=== PATIENT | female | born 1940 | race Caucasian/White ===

== ENCOUNTER → 2023-07-21 13:29 | Outpatient (REF) | payer OTHER, SELFPAY ==
[2023-07-21 16:08] LABS: % Basophils 0.6 % (0-2); % Eosinophils 0.9 % (0-6); % Immature Granulocytes 0.5 % (0-0.5); % Lymphocytes 4.9 % (20.5-51.1); % Monocytes 5.6 % (1.7-9.3); % Neutrophils 87.5 % (42.2-75.2); Absolute Basophils 0.1 10^3/uL (0-0.2); Absolute Eosinophils 0.1 10^3/uL (0-0.7); Absolute Immature Granulocytes 0.1 10^3/uL (0-0.05); Absolute Lymphocytes 0.5 10^3/uL (1.2-3.4); Absolute Monocytes 0.6 10^3/uL (0.1-0.6); Absolute Neutrophils 9.7 10^3/uL (1.4-6.5); Hemoglobin 12.2 g/dL (12.0-16.0); Mean Corp Hgb Conc. 31.3 g/dL (33.0-37.0); Mean Corpuscular Hgb 31.1 pg (27.0-31.0); Mean Corpuscular Volume 99.5 fL (81.0-99.0); Mean Platelet Volume 10.1 fL (7.4-10.4); Nucleated Red Blood Cells % 0 %; Platelet Count 239 10^3/uL (130-400); Red Blood Cell Count 3.92 10^6/uL (4.20-5.40); Red Cell Dist. Width 13.2 % (11.5-14.5); White Blood Cell Count 11.1 10^3/uL (4.8-10.8)
[2023-07-21 16:14] LABS: ALT (SGPT) 17 U/L (0-35); AST (SGOT) 32 U/L (14-36); Albumin 3.8 g/dl (3.5-5.0); Alkaline Phosphatase 53 U/L (38-126); Blood Urea Nitrogen 21 mg/dl (7-17); Calcium 9.3 mg/dl (8.4-10.2); Chloride 86 mmol/L (98-107); Glucose 95 mg/dl (70-99); Potassium 4.8 mmol/L (3.5-5.1); Sodium 133 mmol/L (135-145); Total Bilirubin 0.5 mg/dl (0.2-1.3); Total Protein 6.9 g/dl (6.3-8.2); eGFR > 60.00
[2023-07-21 16:23] LABS: Carbon Dioxide 39 mmol/L (22-30)
== END ==
LOC: HWLAB 13:29
PROVIDERS: ATTENDING PHYSICIAN Internal Medicine Hematology & Oncology; FAMILY PHYSICIAN Internal Medicine
DX: C83.39 Diffuse large B-cell lymphoma, extranodal and solid organ sites (principal); C50.911 Malignant neoplasm of unspecified site of right female breast; C50.411 Malignant neoplasm of upper-outer quadrant of right female breast
CPT/HCPCS: 36415; 80053; 85025

== ENCOUNTER → 2024-04-12 16:22 | Outpatient (REF) | payer OTHER, SELFPAY ==
[2024-04-12 17:33] LABS: % Basophils 0.3 % (0-2); % Eosinophils 0.4 % (0-6); % Immature Granulocytes 0.4 % (0-0.5); % Lymphocytes 4.6 % (20.5-51.1); % Monocytes 5.2 % (1.7-9.3); % Neutrophils 89.1 % (42.2-75.2); Absolute Eosinophils 0.1 10^3/uL (0-0.7); Absolute Lymphocytes 0.5 10^3/uL (1.2-3.4); Absolute Monocytes 0.6 10^3/uL (0.1-0.6); Absolute Neutrophils 10.1 10^3/uL (1.4-6.5); Hematocrit 37.3 % (37.0-47.0); Mean Corp Hgb Conc. 32.2 g/dL (33.0-37.0); Mean Corpuscular Hgb 32.3 pg (27.0-31.0); Mean Corpuscular Volume 100.3 fL (81.0-99.0); Mean Platelet Volume 11.5 fL (7.4-10.4); Nucleated Red Blood Cells % 0 %; Platelet Count 175 10^3/uL (130-400); Red Blood Cell Count 3.72 10^6/uL (4.20-5.40); White Blood Cell Count 11.3 10^3/uL (4.8-10.8)
[2024-04-12 17:57] LABS: ALT (SGPT) 18 U/L (0-35); AST (SGOT) 34 U/L (14-36); Albumin 4.1 g/dl (3.5-5.0); Alkaline Phosphatase 58 U/L (38-126); Blood Urea Nitrogen 33 mg/dl (7-17); Calcium 9.5 mg/dl (8.4-10.2); Chloride 89 mmol/L (98-107); Glucose 101 mg/dl (70-99); Potassium 4.6 mmol/L (3.5-5.1); Sodium 137 mmol/L (135-145); Total Bilirubin 0.3 mg/dl (0.2-1.3); Total Protein 7.2 g/dl (6.3-8.2); eGFR > 60.00
[2024-04-12 18:07] LABS: Carbon Dioxide 37 mmol/L (22-30)
== END ==
LOC: REG 16:22
PROVIDERS: ATTENDING PHYSICIAN Internal Medicine Hematology & Oncology; FAMILY PHYSICIAN Internal Medicine
DX: C83.390 Primary central nervous system lymphoma (principal); C50.911 Malignant neoplasm of unspecified site of right female breast; C50.411 Malignant neoplasm of upper-outer quadrant of right female breast
CPT/HCPCS: 36415; 80053; 85025; 86300

== ENCOUNTER → 2024-05-10 11:26 | Outpatient (REF) | payer OTHER, SELFPAY ==
[2024-05-10 12:02] LABS: % Basophils 0.6 % (0-2); % Eosinophils 1.3 % (0-6); % Immature Granulocytes 0.5 % (0-0.5); % Lymphocytes 7.1 % (20.5-51.1); % Neutrophils 83.5 % (42.2-75.2); Absolute Basophils 0.1 10^3/uL (0-0.2); Absolute Eosinophils 0.2 10^3/uL (0-0.7); Absolute Immature Granulocytes 0.1 10^3/uL (0-0.05); Absolute Lymphocytes 0.8 10^3/uL (1.2-3.4); Absolute Monocytes 0.8 10^3/uL (0.1-0.6); Absolute Neutrophils 9.6 10^3/uL (1.4-6.5); Hemoglobin 12.2 g/dL (12.0-16.0); Mean Corp Hgb Conc. 30.5 g/dL (33.0-37.0); Mean Corpuscular Volume 101.5 fL (81.0-99.0); Mean Platelet Volume 9.5 fL (7.4-10.4); Nucleated Red Blood Cells % 0 %; Platelet Count 258 10^3/uL (130-400); Red Blood Cell Count 3.94 10^6/uL (4.20-5.40); Red Cell Dist. Width 12.9 % (11.5-14.5); White Blood Cell Count 11.5 10^3/uL (4.8-10.8)
[2024-05-10 12:50] LABS: ALT (SGPT) 15 U/L (0-35); AST (SGOT) 32 U/L (14-36); Albumin 4.1 g/dl (3.5-5.0); Alkaline Phosphatase 73 U/L (38-126); Blood Urea Nitrogen 30 mg/dl (7-17); Calcium 9.6 mg/dl (8.4-10.2); Chloride 87 mmol/L (98-107); Glucose 125 mg/dl (70-99); Potassium 4.3 mmol/L (3.5-5.1); Sodium 138 mmol/L (135-145); Total Bilirubin 0.5 mg/dl (0.2-1.3); Total Cholesterol 259 mg/dl (50-199); Total Protein 7.3 g/dl (6.3-8.2); Triglyceride 88 mg/dl (10-149); Very Low Density Lipoprotein 17 mg/dl (0-30); eGFR > 60.00
[2024-05-10 13:20] LABS: TSH 2.38 uIU/ml (0.47-4.68)
[2024-05-10 13:22] LABS: HDL Cholesterol 139 mg/dl; LDL Cholesterol, Calculated 103 mg/dl
[2024-05-10 13:52] LABS: Carbon Dioxide 43 mmol/L (22-30)
== END ==
LOC: REG 11:26
PROVIDERS: ATTENDING PHYSICIAN Internal Medicine
DX: J96.12 Chronic respiratory failure with hypercapnia (principal); Z85.79 Personal history of other malignant neoplasms of lymphoid, hematopoietic and related tissues; J44.9 Chronic obstructive pulmonary disease, unspecified; I10 Essential (primary) hypertension
CPT/HCPCS: 36415; 80053; 80061; 84443; 85025

== ENCOUNTER 2024-06-10 13:29 | Inpatient (IN) | payer OTHER, SELFPAY ==
[2024-06-10] VITALS (14 sets, daily range): BP systolic 114–161; BP diastolic 47–78; PULSE 2–102; BMI 15.5
--- NOTE | 2024-06-10 10:12 | ED.GENMED ---
History of Present Illness
<Janet Bradshaw PA-C - Last Filed: 06/10/24 12:38>
General
Chief Complaint: Breathing Problem
Source: patient
Exam Limitations: none
Time Seen by Provider: 06/10/24 10:10
Nursing documentation reviewed up to this point in time: agreed with
History of Present Illness
History of Present Illness:
This is a 83-year-old female with a past medical history of COPD on home BiPAP, hypertension, presents emergency department today with concerns of altered mental status and increasing respiratory distress. Patient has a history of progressed COPD on
bipap as needed at home, on 4L at baseline, follows with Dr. Vitale for pulmonology. reports that he noticed that patient has been loopy this pas week and he notices that patient gets this way when she has a build up of CO2. Patient herself
feels off and not herself. Patient does note some swelling in her lower extremities bilaterally but she states that she has had this for years. She denies pain or redness in her lower extremities, chest pain, abdominal pain, nausea or vomiting,
fevers or chills, change in her secretions. She denies increasing cough, sore throat, runny nose etc.
Past History
<Janet Bradshaw PA-C - Last Filed: 06/10/24 12:38>
Past History
ED Past Medical History: Cancer (non hodgkins lymphoma, Breast CA, s/p XRT and chemo), COPD, HTN, Other (legionaires pneumonia 1975, chronic partial R pneumothorax, B CTs.) and Other (Non-Hodgkin's lymphoma, breast cancer status post chemoradiation,
hypertension, Legionnaires' disease, previous right pneumothorax, bronchiectasis)
Social History
Tobacco: Former smoker
Alcohol: None
Drug: None
Personal:
Living: with family
Employment: Retired
Family History
Family History: Unable to obtain
Review of Systems
<LORIE Aguilera Last Filed: 06/10/24 12:38>
Review of Systems
All Other Systems: ROS reviewed and negative except as documented in HPI and ROS
Phy Exam
<Janet Bradshaw PA-C - Last Filed: 06/10/24 12:38>
Physical Exam
Physical Exam:
General: Patient appears fatigued but non-toxic
Skin: Warm and dry, no rashes or lesions
Head: Normocephalic, atraumatic
Eyes: Sclera non-icteric. EOMs intact. PERRLA.
Cardiac: Patient tachycardic otherwise regular rhythm, no murmurs
Peripheral Vascular: Mild non-pitting bilateral lower extremity edema
Pulm: Increased respiratory rate, diffuse wheezing heard bilaterally
Abdomen: No abdominal tenderness to palpation
Neuro: CN II-XII intact, no focal neurologic deficits.
Psychiatric: Appropriate mood and affect.
Scores
<Janet Bradshaw PA-C - Last Filed: 06/10/24 12:38>
Heart Failure Risk
Heart Failure Risk Score: Not Applicable
Course
<Janet Bradshaw PA-C - Last Filed: 06/10/24 12:38>
Orders/Labs/Results
Orders:
Orders
06/10/24 10:22
Dexamethasone Sod Phosphate [Decadron] 10 mg IV NOW STA
CR Chest - 2 Views Urgent
Comment:
Reason For Exam: shortness of breath
06/10/24 10:24
Ipratropium/Albuterol Sulfate [Duoneb] 3 ml INH R NOW STA
Ipratropium/Albuterol Sulfate [Duoneb] 3 ml INH R NOW STA
Ipratropium/Albuterol Sulfate [Duoneb] 3 ml INH R NOW STA
06/10/24 10:34
COVID-19 Antigen Urgent
Source: Nasal Swab
Complete Blood Count/With Diff Urgent
Comprehensive Metabolic Panel Urgent
NT-proBNP Urgent
Troponin I Urgent
Venous Blood Gas Urgent
%Oxygen/Room Air: pt wears 4L constantly (RA 70-80s)
Influenza A+B Rapid Molecular Urgent
MINISTERIO Source: Nasal Swab
Specimen Description:
06/10/24 11:18
Lactated Ringers [Lr] 500 ml IV BOLUS
06/10/24 11:32
Bipap [RESP] Urgent
Patient to use own unit?: No
Inspiratory Pressure (cm H2O): 12
Expiratory Pressure (cm H2O): 5
06/10/24 12:13
Respiratory Syncytial Virus Urgent
MINISTERIO Source: Nasal Swab
Specimen Description:
Date Specimen was Collected: 06/10/24
Time Specimen was Collected: 10:55
Abnormal Lab Results
06/10/24
10:34
RBC 3.66 L 10^6/uL
(4.20-5.40)
Hgb 11.6 L g/dL
(12.0-16.0)
MCV 106.0 H fL
(81.0-99.0)
MCH 31.7 H pg
(27.0-31.0)
MCHC 29.9 L g/dL
(33.0-37.0)
Absolute Lymphs (auto) 0.5 L 10^3/uL
(1.2-3.4)
Absolute Monos (auto) 0.9 H 10^3/uL
(0.1-0.6)
Neutrophils % 79.7 H %
(42.2-75.2)
Lymphocytes % 6.5 L %
(20.5-51.1)
Monocytes % 11.7 H %
(1.7-9.3)
VBG pH 7.28 L
(7.32-7.43)
VBG pCO2 > 115 H* mmHg
(35-48)
VBG HCO3 54.5 H mmol/L
(22-27)
Chloride 86 L mmol/L
(98-107)
Carbon Dioxide 52 H mmol/L
(22-30)
BUN 30 H mg/dl
(7-17)
Glucose 110 H mg/dl
(70-99)
06/10/24 10:34
06/10/24 10:34
Vital Signs
Initial and Last Documented VS:
Initial Vital Signs
Temp Pulse Resp BP
98.0 F 117 34 161/78
06/10/24 08:51 06/10/24 08:51 06/10/24 08:51 06/10/24 08:51
Last Documented Vital Signs
Temp Pulse Resp BP Pulse Ox
98.0 F 94 26 143/64 100
06/10/24 08:51 06/10/24 11:00 06/10/24 11:00 06/10/24 11:00 06/10/24 10:32
<Castillo Almaguer, - Last Filed: 06/10/24 12:24>
Orders/Labs/Results
Orders:
Orders
06/10/24 10:22
Dexamethasone Sod Phosphate [Decadron] 10 mg IV NOW STA
CR Chest - 2 Views Urgent
Comment:
Reason For Exam: shortness of breath
06/10/24 10:24
Ipratropium/Albuterol Sulfate [Duoneb] 3 ml INH R NOW STA
Ipratropium/Albuterol Sulfate [Duoneb] 3 ml INH R NOW STA
Ipratropium/Albuterol Sulfate [Duoneb] 3 ml INH R NOW STA
06/10/24 10:34
COVID-19 Antigen Urgent
Source: Nasal Swab
Complete Blood Count/With Diff Urgent
Comprehensive Metabolic Panel Urgent
NT-proBNP Urgent
Troponin I Urgent
Venous Blood Gas Urgent
%Oxygen/Room Air: pt wears 4L constantly (RA 70-80s)
Influenza A+B Rapid Molecular Urgent
MINISTERIO Source: Nasal Swab
Specimen Description:
06/10/24 11:18
Lactated Ringers [Lr] 500 ml IV BOLUS
06/10/24 11:32
Bipap [RESP] Urgent
Patient to use own unit?: No
Inspiratory Pressure (cm H2O): 12
Expiratory Pressure (cm H2O): 5
06/10/24 12:13
Respiratory Syncytial Virus Urgent
MINISTERIO Source: Nasal Swab
Specimen Description:
Date Specimen was Collected: 06/10/24
Time Specimen was Collected: 10:55
Abnormal Lab Results
06/10/24
10:34
RBC 3.66 L 10^6/uL
(4.20-5.40)
Hgb 11.6 L g/dL
(12.0-16.0)
MCV 106.0 H fL
(81.0-99.0)
MCH 31.7 H pg
(27.0-31.0)
MCHC 29.9 L g/dL
(33.0-37.0)
Absolute Lymphs (auto) 0.5 L 10^3/uL
(1.2-3.4)
Absolute Monos (auto) 0.9 H 10^3/uL
(0.1-0.6)
Neutrophils % 79.7 H %
(42.2-75.2)
Lymphocytes % 6.5 L %
(20.5-51.1)
Monocytes % 11.7 H %
(1.7-9.3)
VBG pH 7.28 L
(7.32-7.43)
VBG pCO2 > 115 H* mmHg
(35-48)
VBG HCO3 54.5 H mmol/L
(22-27)
Chloride 86 L mmol/L
(98-107)
Carbon Dioxide 52 H mmol/L
(22-30)
BUN 30 H mg/dl
(7-17)
Glucose 110 H mg/dl
(70-99)
06/10/24 10:34
06/10/24 10:34
Vital Signs
Initial and Last Documented VS:
Initial Vital Signs
Temp Pulse Resp BP
98.0 F 117 34 161/78
06/10/24 08:51 06/10/24 08:51 06/10/24 08:51 06/10/24 08:51
Last Documented Vital Signs
Temp Pulse Resp BP Pulse Ox
98.0 F 94 26 143/64 100
06/10/24 08:51 06/10/24 11:00 06/10/24 11:00 06/10/24 11:00 06/10/24 10:32
<Janet Bradshaw PA-C - Last Filed: 06/10/24 12:38>
MDM/Problems Addressed
Differential Diagnosis Includes:
COPD exacerbation, pneumonia, viral syndrome, ACS, PE
MDM/Problems Addressed:
83-year-old female past medical history of end-stage COPD chronically on 4 L presents emergency department today with concerns of altered mental status. reports that she has been more loopy. Her lab work reveals respiratory acidosis with
pCO2 greater than 115. Patient was transition to DuoNeb treatments to BiPAP. Discussed case with Dr. 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 Patient does use BiPAP
occasionally at home. Will admit for further treatment and care. Case reviewed with my attending
Chronic conditions affecting care:
COPD, hypertension
<Janet Bradshaw PA-C - Last Filed: 06/10/24 12:38>
*Pulse Oximetry
Patient hypoxic: yes
*EKG
Interpreted by ED Provider?: Yes
EKG Intrepretation Date: 06/10/24
Interpretation: abnormal
Comparison EKG: changes noted (T wave abnormality no longer present)
Heart Rate: 84
Rate: normal
Rhythm: sinus
[place]: normal axis
QRS Pattern: normal QRS
<Castillo Almaguer DO - Last Filed: 06/10/24 12:24>
*Critical Care Note
Total Time (30-74mins, 75-104mins- exclusive of procedures): 40 minutes
Data Reviewed
Review of Other/Old Records Reveals: Labs (Prior pCO2 reviewed.) and Discharge Summary (Discharge summary from August 2022 reviewed)
Source: patient and spouse
Further Testing Considered But Not Given:
Consider CTA but suspect related to COPD
<DO Munir Balderas Last Filed: 06/10/24 12:24>
Patient Management
Discussion with other providers: Obgyn Specialist (Case discussed with pulmonary Dr. Vitale, agrees with management)
ED Attending Note
<Janet Bradshaw PA-C - Last Filed: 06/10/24 12:38>
-
Portions of this chart may have been created with voice recognition software.� Occasional wrong word or��sound alike� substitutions may have occurred due to the inherent limitations of voice recognition software.
<DO Munir Balderas Last Filed: 06/10/24 12:24>
ED Attending Note
Patient seen and examined by attending physician: Yes
I performed the substantive portion of visit, reviewed & personally made and approve the management plan that is documented in note by myself or RISSA.: Yes
ED Attending Note:
83-year-old female with end-stage COPD. On BiPAP at home. Here short of breath. states that she was difficult to arouse at home but now is a little better after he put on BiPAP. ED assessment: Wheezing noted bilaterally. Cachectic.
Awake but at times a little bit confused. Assessment and plan: Clinically hyper But pH is only 7.28 despite pCO2 of greater than 115. Case discussed with pulmonology. Will initiate BiPAP. Reassess
Discharge Plan
Departure
Patient Disposition: Admit
Date of Disposition: 06/10/24
Time of Disposition: 11:57
Presentation/result/management discussed w/ accepting MD/DO: Hospitalist
Patient with high blood pressure during this ER visit?: Yes
Condition: Good
Discharge Problem:
Acute hypercapnic respiratory failure, COPD exacerbation
Prescriptions:
No Action
Systane (propylene glycol) 0.4-0.3 % Drops
1 drp BOTH EYES DAILYPRN PRN (Reason: DRY EYES)
cholecalciferol (vitamin D3) 25 mcg (1,000 unit) Tablet
25 mcg PO DAILY
ferrous sulfate 325 mg (65 mg iron) tablet
325 mg PO DAILY
budesonide 0.5 MG/2 ML suspension for nebulization
0.5 mg inhalation R BID
ipratropium-albuterol 0.5 mg-3 mg(2.5 mg base)/3 mL solution for nebulization
3 ml inhalation R BID
acetaminophen 325 mg Tablet
650 mg PO BIDPRN PRN (Reason: mild pain)
prednisone 5 mg Tablet
5 mg PO DAILY
thiamine HCl (vitamin B1) 100 mg Tablet
100 mg PO DAILY
metoprolol tartrate 25 mg Tablet
25 mg PO BID
Referrals:
Freddie Gonzalez DO [Family Provider] -
Interventions
Interventions:
*Risk Screen - Suicide Last Done: 06/10/24 11:02
*General Assessment Last Done: 06/10/24 11:02
*Neglect/Abuse Screening Last Done: 06/10/24 11:02
ED- Cardiac Assessment Last Done: 06/10/24 11:03
ED- Pulmonary Assessment Last Done: 06/10/24 11:03
Discharge Date and Time
Print Language: SWEDISH
[2024-06-10] MEDS: DECADRON 10 MG IV (10:47)
[2024-06-10] MEDS: DUONEB 3 ML INH ×5 (10:48→19:53)
[2024-06-10 11:02] LABS: % Basophils 0.4 % (0-2); % Eosinophils 1.3 % (0-6); % Immature Granulocytes 0.4 % (0-0.5); % Lymphocytes 6.5 % (20.5-51.1); % Monocytes 11.7 % (1.7-9.3); % Neutrophils 79.7 % (42.2-75.2); Absolute Eosinophils 0.1 10^3/uL (0-0.7); Absolute Lymphocytes 0.5 10^3/uL (1.2-3.4); Absolute Monocytes 0.9 10^3/uL (0.1-0.6); Absolute Neutrophils 6.2 10^3/uL (1.4-6.5); Hematocrit 38.8 % (37.0-47.0); Hemoglobin 11.6 g/dL (12.0-16.0); Mean Corp Hgb Conc. 29.9 g/dL (33.0-37.0); Mean Corpuscular Hgb 31.7 pg (27.0-31.0); Mean Platelet Volume 9.5 fL (7.4-10.4); Nucleated Red Blood Cells % 0 %; Platelet Count 185 10^3/uL (130-400); Red Blood Cell Count 3.66 10^6/uL (4.20-5.40); Red Cell Dist. Width 13.3 % (11.5-14.5); Venous Blood Gas B.E. 22.3 mmol/L (-4 to +4); Venous Blood Gas HCO3 54.5 mmol/L (22-27); Venous Blood Gas O2 Sat % 64.8 %; Venous Blood Gas pH 7.28 (7.32-7.43); Venous Blood Gas pO2 33 mmHg (30-50); White Blood Cell Count 7.8 10^3/uL (4.8-10.8)
[2024-06-10 11:07] LABS: Venous Blood Gas pCO2 > 115 mmHg (35-48)
[2024-06-10 11:16] LABS: ALT (SGPT) 16 U/L (0-35); AST (SGOT) 30 U/L (14-36); Albumin 3.7 g/dl (3.5-5.0); Alkaline Phosphatase 73 U/L (38-126); Blood Urea Nitrogen 30 mg/dl (7-17); Calcium 9.3 mg/dl (8.4-10.2); Chloride 86 mmol/L (98-107); Glucose 110 mg/dl (70-99); Potassium 4.4 mmol/L (3.5-5.1); Sodium 140 mmol/L (135-145); eGFR > 60.00
[2024-06-10 11:18] LABS: COVID-19 Antigen Negative (Negative)
[2024-06-10 11:28] LABS: Carbon Dioxide 52 mmol/L (22-30); NT-proBNP 297 pg/ml; Troponin I < 0.012 ng/ml
[2024-06-10 12:05] LABS: Total Bilirubin 0.3 mg/dl (0.2-1.3)
[2024-06-10] MEDS: LR 500 IV (12:31)
--- NOTE | 2024-06-10 12:38 | HPS.HSE ---
Family Physician
-
Family Physician: Freddie Gonzalez
Chief Complaint
-
Increased lethargy, increased shortness of breath
History of Present Illness
83-year-old female from home with her complaining of progressive shortness of breath, increased sleeping over the past 5 days getting harder to wake up and not making sense according to her . She has a history of chronic hypoxic
respiratory failure is on 4 L nasal cannula baseline she also requires BiPAP for 11 hours at night to sleep. Patient is very lethargic she denies headache, sore throat, chest pain, palpitations, cough, abdominal pain, nausea, vomiting, diarrhea,
urinary symptoms. She reports chronic bilateral leg edema +1-2 which is currently at her baseline. She has past medical history of COPD on chronic 4 L nasal cannula, former smoker 38 years half pack a day quit 20 years ago, chronic hypercarbia
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
pneumothorax, bronchiectasis.
Medical History
Past Medical History
Past Medical History: Reports Other
Additional Past Medical History:
Severe COPD chronic 4 L nasal cannula dependent
former smoker 38 years half pack a day quit 20 years ago
Chronic Hypercapnia on BiPAP at night for 11 hours
Bronchiectasis
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
h/o Breast CA 2017 with radiation and chemo
h/o Non-Hodgkin Lymphoma Dx 15 years ago currently stable follows with heme here
legionnaires disease, previous right pneumothorax,
Past Surgical History: Reports Other
Additional Past Surgical History:
Breast Biopsy
Bone Marrow Biopsy
Left Hip Fracture Repair
Partial Right Hip Replacement
Right Hip Fracture
Social History
Tobacco: Former Smoker (38 years 1/2 pack/day quit 20 years ago)
Alcohol: None
Personal:
Living: With Family ( Esteban)
Employment: Retired
Family History
Family History: Other (Mother at 91 CHF)
Allergies / Home Medications
Allergies reflects when Allergies were last updated in [facility].
Home Medications with original date entered in [facility]
Allergy/Medication List:
Allergies
Allergy/AdvReac Type Severity Reaction Status Date / Time
garlic AdvReac DIZZINESS Verified 06/10/24 08:50
polyethylene glycol 3350 AdvReac Pharmacy Verified 06/10/24 08:50
[From [facility]] to Review
Home Medications
peg 400-propylene glycol 0.4 %-0.3 % eye drops (Systane (propylene glycol)) 1 drp BOTH EYES DAILYPRN PRN DRY EYES 11/10/21
budesonide 0.5 mg/2 mL suspension for nebulization 0.5 mg inhalation R BID Lung/breathing issues 11/25/21
cholecalciferol (vitamin D3) 25 mcg (1,000 unit) tablet 25 mcg PO DAILY Supplement 11/25/21
ferrous sulfate 325 mg (65 mg iron) tablet 325 mg PO DAILY Supplement 11/25/21
ipratropium 0.5 mg-albuterol 3 mg (2.5 mg base)/3 mL nebulization soln 3 ml inhalation R BID Lung/breathing issues 08/07/22
acetaminophen 325 mg tablet 650 mg PO BIDPRN PRN mild pain 06/10/24
metoprolol tartrate 25 mg tablet 25 mg PO BID 06/10/24
prednisone 5 mg tablet 5 mg PO DAILY 06/10/24
thiamine HCl (vitamin B1) 100 mg tablet 100 mg PO DAILY 06/10/24
Review of Systems
-
History Source: Patient and Family ( at bedside)
A 12 point ROS was completed and negative except as noted: Yes
Constitutional: Reports Fatigue; Denies Fever or Chills
EENT: Denies Sore Throat or Runny Nose
Respiratory: Reports Trouble Breathing (Increase shortness of breath, wheezing, increased lethargy x 5 days); Denies Cough
Cardiac: Denies Chest Pain, Diaphoresis, Palpitations or Syncope
Abdomen/GI: Denies Abdominal Pain, Nausea, Vomiting, Diarrhea, Constipated or Bloody Stools
: Denies Dysuria, Frequency, Flank Pain, Incontinence, Difficulty Voiding or Urgency
Musculoskeletal: Reports Edema (+2 bilateral lower extremity patient reports and has been this is her baseline); Denies Joint Pain or Joint Swelling
Skin: Denies Itching or Rash
Neurological: Reports Weakness (Generalized); Denies Dizzy or Headache
Endocrine: Reports No Symptoms
Hematologic/Lymphatic: Reports No Symptoms
Psych: Reports Calm
Physical Exam
Vital Signs
Vital Signs
Temp Pulse Resp BP Pulse Ox
98.0 F 94 26 143/64 100
06/10/24 08:51 06/10/24 11:00 06/10/24 11:00 06/10/24 11:00 06/10/24 10:32
Physical Exam
General: Comfortable, Cachectic and Other (Currently on BiPAP with generalized weakness); No Fever, Chills or Slurred Speech
HEENT: NormoCephalic, Anicteric, PERRLA, Sasser Conjunctivae, No Ptosis and Oxygen (Currently on BiPAP machine)
Respiratory: Clear (Post multiple neb treatments and steroids); No Wheezes, Rales or Rhonchi
Cardiac: S1/S2 and Regular Rhythm; No Murmur, Rub or Gallop
Breast: Deferred by me
GI: Soft, Non Tender, Non Distended, Normal Bowel Sounds and No Hepatosplenomegaly
Rectal: Deferred by Provider
Genito-urinary: Deferred by me
Musculoskeletal: No Clubbing, No Cyanosis, Edema, Left Lower Extremity (+2) and Edema, Right Lower Extremity (+2); No Edema, Left Upper Extremity or Edema, Right Upper Extremity
Neuro: No Motor Deficits, Cranial Nerves Intact and Other (Drowsy but oriented x 3 will answer question but then falls back asleep while on BiPAP); No Slurred Speech, Facial Droop or Tremors
Psych: Calm
Laboratory Results
-
06/10/24 10:34
06/10/24 10:34
Laboratory Results
Total Bilirubin 0.3 mg/dl (0.2-1.3) 06/10/24 10:34
AST 30 U/L (14-36) 06/10/24 10:34
ALT 16 U/L (0-35) 06/10/24 10:34
Alkaline Phosphatase 73 U/L (38-126) 06/10/24 10:34
Troponin I < 0.012 ng/ml 06/10/24 10:34
Data Reviewed
-
Diagnostic Radiology: Report Reviewed by me
Lab Data: Labs Reviewed by me
Impression/Plan
-
Impression/plan:
Admit to IMU
#Acute on chronic hypercarbic respiratory failure
#Acute on chronic COPD exacerbation 4 L nasal cannula dependent/steroid-dependent
#Former smoker 38-year half pack per day quit 20 years ago
COVID, flu, RSV negative
Patient currently on BiPAP 02/05
O2 sat 99%
-IV Decadron 10 mg now
-Continue IV Decadron 4 mg every 6 hours
-DuoNebs scheduled and as needed
-Consult pulm
-Zithromax
-Continue budesonide 0.5 mg twice daily
-Incentive spirometry
-Consult PT/OT/case management
CXR: No acute cardiopulmonary abnormality.
Chronic pleural thickening versus loculated pleural fluid within the right upper lung zone extensive right upper lobe bronchiectasis findings are unchanged compared
to prior x-ray
#Chronic hypercarbia uses BiPAP 11 hours at night
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
#HTN
BP 143/64
Continue metoprolol tartrate 25 mg twice daily
Anemia�history iron deficiency/B12 deficient
Hgb 11.6, MCV 106
Continue ferrous sulfate, vitamin B1 100 mg daily
#Breast cancer status post XRT and chemo radiation 2016
#Non-Hodgkin's lymphoma approximately 15 years ago according to
Dry eyes
Continue Systane 1 drop both eyes daily as needed
Other PMH:
Legionnaires disease
previous right pneumothorax
bronchiectasis hx
dvt proph sq lovenox
full code with esteban present
--- NOTE | 2024-06-10 13:04 | W.PN.UPDATE ---
Update Note
Progress Note Update
This is an addendum to the H&P written by Lynda Segura on 06/10/2024.� Patient seen and examined independently with JUNIOR WEB DEVELOPER.
83-year-old female past medical history of COPD on 4 L baseline, hypertension presenting with altered mental status and increasing respiratory distress.
Chest x-ray shows no acute pulmonary abnormality.� There is pleural thickening versus loculated pleural fluid within the right upper lung zone.� The right upper lobe bronchiectasis.� VBG shows hypercarbia with pH of 7.28, pCO2 of 115.
Presentation consistent with acute hypercarbic respiratory failure secondary to COPD exacerbation.� Patient requiring BiPAP.� DuoNebs every 6 hours, dexamethasone.� Azithromycin.� Pulmonary consulted.
--- NOTE | 2024-06-10 13:30 | CON.PUL ---
Addendum entered and electronically signed by Farzana Barkley MD 06/10/24 15:17:
ABG reviewed.
pCO2 84, pH 7.3. This is likely more towards patient baseline
Will continue with BiPAP with occasional breaks for medications and p.o. intake
Otherwise, maintain on BiPAP
Original Note:
Consultation
Consultation Request
Date/Time Consultation Requested: 06/09
Date/Time Consultation Performed: 06/09
Reason for Consultation: Hypercapnia
Medical History
-
History of Present Illness:
History obtained from the patient, at bedside and reviewing both inpatient and outpatient records. Pleasant 83-year-old female with chronic pulmonary fibrosis secondary to radiation therapy from NHL 2007 and breast cancer 2016, on home BiPAP
using 11 hours a night. According to , patient has been increasingly short of breath for the past few days including Increased lethargy and confusion. Upon arrival to [facility], patient noted to be afebrile, pulse 117, breathing at
24, blood pressure 161/78. Patient given nebulized therapy, found to have a hemoglobin 11.6, serum bicarbonate of 52. ABG revealed pCO2 greater than 115. We are asked to help from a pulmonary standpoint presently, patient appears to be alert and
answering questions appropriately.
admits that patient is more awake at this time. There has been some increased lower extremity swelling but otherwise no new medications, no alcohol, no pain medications, no falls, denies fevers, diarrhea
.
PMH: History of COPD, chronic hypercapnia, history of VDRF 2021, history of fall with hip fracture 2021, chronic hypoxia on home oxygen, chronic hypercapnia on home BiPAP, bronchiectasis, pleural thickening from scar, history of non-Hodgkin's
lymphoma status post radiation therapy, chemotherapy 2007, right breast cancer status postlumpectomy/radiation, mastectomy 2014, history of legionnaires pneumonia 1974 complicated by right pneumothorax requiring chest tube placement, hypertension,
chronic back pain, severe pulm hypertension PA systolic pressure 68, history of osteoporosis/compression fracture, history of fibroadenoma, diastolic dysfunction
Past Medical History
Past Medical History: None (See above)
Past Surgical History: None (See above)
Social History
Tobacco: Former Smoker (Quit many years ago)
Alcohol: None
Drug: None
Personal:
Living: With Family
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
Family History
Family History: Reviewed & Not Pertinent
Allergies / Home Medications
Allergies
Allergy/AdvReac Type Severity Reaction Status Date / Time
garlic AdvReac DIZZINESS Verified 06/10/24 08:50
polyethylene glycol 3350 AdvReac Pharmacy Verified 06/10/24 08:50
[From [facility]] to Review
Home Medications
�Medication �Instructions �Recorded �Confirmed �Last Taken �Type
peg 400-propylene glycol 0.4 %-0.3 1 drp BOTH EYES DAILYPRN PRN DRY 11/10/21 06/10/24 06/09/24 History
% eye drops (Systane (propylene EYES
glycol))
budesonide 0.5 mg/2 mL suspension 0.5 mg inhalation R BID 11/25/21 06/10/24 06/09/24 History
for nebulization Lung/breathing issues
cholecalciferol (vitamin D3) 25 25 mcg PO DAILY Supplement 11/25/21 06/10/24 06/09/24 History
mcg (1,000 unit) tablet
ferrous sulfate 325 mg (65 mg 325 mg PO DAILY Supplement 11/25/21 06/10/24 06/09/24 History
iron) tablet
ipratropium 0.5 mg-albuterol 3 mg 3 ml inhalation R BID 08/07/22 06/10/24 06/09/24 History
(2.5 mg base)/3 mL nebulization Lung/breathing issues
soln
acetaminophen 325 mg tablet 650 mg PO BIDPRN PRN mild pain 06/10/24 06/10/24 Unknown History
metoprolol tartrate 25 mg tablet 25 mg PO BID 06/10/24 06/10/24 06/09/24 History
prednisone 5 mg tablet 5 mg PO DAILY 06/10/24 06/10/24 06/09/24 History
thiamine HCl (vitamin B1) 100 mg 100 mg PO DAILY 06/10/24 06/10/24 06/09/24 History
tablet
Review of Systems
-
All other systems: Negative unless noted
Vitals / Labs / Diagnostic Testing
Vital Signs
Temp Pulse Resp BP Pulse Ox
98.0 F 94 26 143/64 100
06/10/24 08:51 06/10/24 11:00 06/10/24 11:00 06/10/24 11:00 06/10/24 10:32
Lab Data
06/10/24 10:34
06/10/24 10:34
Microbiology
06/10/24 12:13 Nasal Swab Respiratory Syncytial Virus Ag - Final
Negative for Respiratory Syncytial Virus.
A false negative result may be obtained with a specimen
collected early in the acute phase. If symptoms persist, a
new specimen should be tested.
06/10/24 10:34 Nasal Swab Influenza Types A & B (VIRAJ) - Final
Negative for Influenza A & B, NAAT
Negative results must be combined with clinical observations
and patient history.
Nucleic Acid Amplification test (NAAT)performed on the
[employer] platform.
Diagnostic Testing:
Physical Exam
-
HEENT: Normocephalic, Anicteric and Other (Cachectic, BiPAP in place. Patient conversing through BiPAP)
Cardiovascular: S1/S2, Regular Rhythm, Murmur (n), Rub (n), Peripheral Edema (Trace) and Calf Tenderness (n)
Respiratory: Wheeze (n), Rales (n), Rhonchi (n), Non-Labored Respirations and Other (Decreased breath sounds right side, no crepitus)
GI: Soft, Non Distended and Non Tender
Neurology: Awake, Alert and No Motor Deficits (Moves extremities, general lower extremity weakness)
Skin: Good Color
General: Respiratory Distress (Mild tachypnea while on BiPAP)
Assessment
-
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
confusion, shortness of breath, found to have CO2 level greater than 115. We are asked to help from a pulmonary standpoint
Acute on chronic hypercapnic respiratory failure, failure of home PAP use
VBG with CO2 greater than 115
Suspected baseline CO2 level around 70
Serum bicarbonate 52 on presentation
Influenza, COVID, RSV negative
Increasing lethargy, fatigue, shortness of breath
Dilated RV, akinesis of free wall, PA pressure 58
Per echo 2021
Diastolic dysfunction, EF greater than 70%
Pulmonary cachexia
Conditions present prior to admission:
History of severe lung disease including radiation fibrosis, severe bronchiectasis
Mixed obstructive/restrictive lung disease
FVC 0.8/31%, ratio 56
Patient declined more aggressive therapy (vest therapy/nebulizers/chronic antibiotics) did not tolerate azithromycin
History of VDRF 2021 x 2
Successfully extubated
COPD-Gold stage IV
Chronic hypoxemic, on 2 L
Chronic hypercapnia, on BiPAP 15/5
Tried Trilogy Vent in past (did not tolerate)
Chronic radiation injury-chronic bronchiectasis history of non-Hodgkin lymphoma
Thickened pleura
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
R breast carcinoma status post lumpectomy and XRT, breast mass removed 2014
Recurrence with bleeding, status post hormonal therapy
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
Hypertension
Chronic back pain, Vertebral fracture, osteoporosis
Limited DNR (no CPR), would except mechanical ventilation
Plan/recommendations
At this time, patient with complex pulmonary history. It appears that her baseline CO2 is likely around 70
Serum bicarbonate presently 52
No new medications, no fevers, no pain medications as outpatient
Patient on chronic prednisone therapy, 5 mg
Well-known to Dr. Vitale
Moving forward
There does not appear to be a clear trigger for her worsening hypercapnia
RSV, influenza, COVID-negative
Chest x-ray with chronic changes, no significant worsening
Patient denies any pain medications, denies alcohol use
Admits to 11 hours of the day of BiPAP therapy
For now, continue with BiPAP 15/5
Repeat ABG
Maintain n.p.o. for now until mental status improves
Reviewed pathophysiology of hypercapnic respiratory failure
Patient was intubated and ventilated back in 2001 x 2 for surgery, fall
At that time, extubated
is okay for intubation if needed but does not want CPR
Given unclear cause of worsening hypercapnia, reviewed that intubation may worsen overall muscle weakness and worsening hypercapnia. He is aware
Patient did try trilogy ventilator at home, did not tolerate
May need to try V60 ventilator if needed depending on follow-up blood gas
Patient on chronic prednisone therapy will empirically treat with IV steroids as worsening obstructive disease or restrictive disease may be primary cause
Continue with budesonide, DuoNeb therapy
Activity limited by history of back fractures, back pain
Evaluate for PT/OT stable
DVT prophylaxis: Patient on Lovenox
GI prophylaxis: While on steroids
Will follow-up
Diagnostic Data
CXR 06/10/24: No acute findings. Chronic right pleural thickening, extensive bronchiectasis. No change compared to 2022
Abdominal x-ray 11/09/21-Feeding tube overlies the left mid abdomen likely within the body of the stomach, nonobstructive bowel gas pattern
Pelvic and hip x-rays 11/08/21-acute nondisplaced intertrochanteric fracture of the left femur with 35� of medial angulation, lumbar scoliosis with compression fractures L2, L3 and L4, osteoporosis and right hip replacement
CT chest 05/2021� There is moderate pleural-parenchymal airspace disease with associated bronchiectasis in the right upper lobe with associated superior retraction of the right hilum. This has progressed in the interval since the prior study but more
likely is progression of chronic disease than superimposed acute inflammatory change. Similarly, there is pleural-parenchymal airspace disease at the medial right lung base which is more likely chronic than acute though it was not present on the
prior study.
CT chest 11/09/21-enlarged right ventricle, right atrium and diffuse cardiac enlargement, no aortic dissection or pulmonary embolism, collateral vessels and upper chest noted, worsening chronic lung changes with increased groundglass past patient's
both lung bases with associated pleural effusions, possible aspiration, endotracheal tube tip at john, new compression fractures of the thoracic spine, Doppler tube tip in the body of the stomach
CT head 11/08/21-no focal or acute intracranial abnormalities, mild diffuse cortical atrophy
PET 06/14/18:� pulmonary nodules, chronic R middle lobe atelectasis vs fibrosis
Echocardiogram 11/09/21-left ventricle small in size, hyperdynamic, EF 70%, stage I diastolic dysfunction, dilated right ventricle with akinesis of the mid free wall sparing the base and apex consistent with positive Rueda sign, moderate tricuspid
regurgitation, IVC is normal size and does not collapse of the patient is intubated and sedated with a PEEP of 5 cm, PA systolic estimated 58
Sputum culture-endotracheal 05/21/21- Ralstonia pickettii
Tracheal aspirate culture 10/03/19-Pseudomonas
Endotracheal Culture 10/02/19-Pseudomonas
All relevant imaging reviewed.
[2024-06-10 15:01] LABS: B.E. 20.6 mmol/L; O2 Saturation % 96.9 % (94-98); PO2 68 mmHg (83-108); pH 7.38 (7.35-7.45)
[2024-06-10 15:04] LABS: HCO3 49.7 mmol/L (21-28); PCO2 84 mmHg (32-35)
[2024-06-10] MEDS: ZITHROMAX INFUSION 250 IV (16:44)
--- NOTE | 2024-06-10 17:42 | PTCARENOTE ---
Pt received as admit from ED. AAOx3. ST on clinical research monitor. HRs 110s. Spo2 98% on 4L nasal cannula. Pt weaned off BiPAP prior to transfer from ED. Plan for BiPAP at HS. Pt tachypneic and labored breathing at times. Small area of non-blanchable
redness noted on sacrum. Foam dressing placed. B/L feet blanchable red. R heel with small superficial skin tear. Heel foam placed on b/l heels. Protective foams placed on spine. Purewick exchanged. Pt resting in bed, call ochoa in reach.
[2024-06-10] MEDS: LOVENOX 30 MG SC (18:12)
[2024-06-10] MEDS: DECADRON 4 MG IV (18:13)
[2024-06-10] MEDS: LOPRESSOR 25 MG PO (19:43)
[2024-06-10] MEDS: PULMICORT 0.5 MG INH (19:53)
[2024-06-11] VITALS (21 sets, daily range): BP systolic 93–162; BP diastolic 49–119; PULSE 2–78; O2SAT 98; BMI 15.8
[2024-06-11] MEDS: DECADRON 4 MG IV ×3 (03:00→16:51)
--- NOTE | 2024-06-11 04:33 | PTCARENOTE ---
Patient AAOx3, forgetful at times. NSR on tele. Pt on 4L NC at change of shift. RT placed pt on the BiPAP, pt tolerating. Oral care done before being placed on BiPAP. Lungs coarse and diminished crackles at the left base. Hygiene done and
documented. Purewick in place. Pt urinated a small amount. Bladder scanned patient for 330 due to decreased output. Pt willing to try using the BSC to urinate. Sacral foam clean, cry, and intact. B/l heel foams in place. Bed alarm on. Call ochoa
within reach.
[2024-06-11 05:21] LABS: ALT (SGPT) 17 U/L (0-35); AST (SGOT) 32 U/L (14-36); Albumin 3.2 g/dl (3.5-5.0); Alkaline Phosphatase 53 U/L (38-126); Blood Urea Nitrogen 33 mg/dl (7-17); Calcium 8.8 mg/dl (8.4-10.2); Chloride 91 mmol/L (98-107); Estimated Creatinine Clearance 48 ml/min; Glucose 114 mg/dl (70-99); Potassium 5.3 mmol/L (3.5-5.1); Sodium 139 mmol/L (135-145); Total Bilirubin 0.4 mg/dl (0.2-1.3); Total Protein 6.4 g/dl (6.3-8.2); eGFR > 60.00
[2024-06-11 05:45] LABS: % Basophils 0.1 % (0-2); % Immature Granulocytes 0.4 % (0-0.5); % Lymphocytes 4.5 % (20.5-51.1); % Monocytes 6.2 % (1.7-9.3); % Neutrophils 88.8 % (42.2-75.2); Absolute Lymphocytes 0.3 10^3/uL (1.2-3.4); Absolute Monocytes 0.5 10^3/uL (0.1-0.6); Absolute Neutrophils 6.7 10^3/uL (1.4-6.5); Hematocrit 36.2 % (37.0-47.0); Hemoglobin 10.8 g/dL (12.0-16.0); Mean Corp Hgb Conc. 29.8 g/dL (33.0-37.0); Mean Corpuscular Volume 107.1 fL (81.0-99.0); Nucleated Red Blood Cells % 0 %; Platelet Count 179 10^3/uL (130-400); Red Blood Cell Count 3.38 10^6/uL (4.20-5.40); Red Cell Dist. Width 13.2 % (11.5-14.5); White Blood Cell Count 7.6 10^3/uL (4.8-10.8)
[2024-06-11 05:46] LABS: Carbon Dioxide 44 mmol/L (22-30)
--- NOTE | 2024-06-11 06:43 | W.PN.HOSP.TC ---
Today's Communication/Plan
-
Give BB to avoid tachycardia
Lokelma
IV steroid
Add ISS
Assessment / Plan
Assessment / Plan
Physical Exam
General: Comfortable, Cachectic and Other (Currently on BiPAP with generalized weakness);
HEENT: Normocephalic, Anicteric, PERRLA, Triangle Conjunctivae, No Ptosis and Oxygen (Currently on BiPAP machine)
Respiratory: positive Rales or Rhonchi
Cardiac: S1/S2 a
GI: Soft, Non Tender, Non Distended, Normal Bowel Sounds
Rectal: No bleeding
Genito-urinary: no hematuria
Musculoskeletal: No Clubbing, No Cyanosis, Edema, Left Lower Extremity (+2) and Edema, Right Lower Extremity (+2)
Neuro: Followed commands, Sleepy/ Drowsy
Psych: Calm
A/P:
#Acute on chronic hypoxic and hypercarbic respiratory failure
#Acute on chronic COPD exacerbation 4 L nasal cannula dependent/steroid-dependent
#Former smoker 38-year half pack per day quit 20 years ago
COVID, flu, RSV negative
History of severe lung disease including radiation fibrosis, severe bronchiectasis
Mixed obstructive/restrictive lung disease
Patient currently on BiPAP 10/
O2 sat 99%
-Continue IV Decadron 4 mg every 8 hours, add ISS
-DuoNeb scheduled and as needed
-Zithromax
-Continue budesonide 0.5 mg twice daily
-Incentive spirometry
- Appreciate pulmonary help
# Toxic metabolic encephalopathy
#Chronic hypercarbia uses BiPAP 11 hours at night
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
#Essential HTN
Continue metoprolol tartrate 25 mg twice daily
# Hyperkalemia, Give Lokelma
# Anemia�history iron deficiency/B12 deficient
#Breast cancer status post XRT and chemo radiation 2016
#Non-Hodgkin's lymphoma approximately 15 years ago according to
Dry eyes
Continue Systane 1 drop both eyes daily as needed
Other PMH:
Legionnaires disease
previous right pneumothorax
bronchiectasis hx
dvt proph sq Lovenox
Total time spent to see the patient, examine the patient, review data and lab results, discuss treatment plan with patient and nursing staff around 55 minutes
Anticipated Discharge: > 48 hours
Subjective/Interval History
-
Date of Service: June 11, 2024
She is on BIpap,
No fevers
Objective Data
-
Labs:
Laboratory Results
06/11/24 06/11/24
04:05 05:25
WBC Cancelled 7.6
Hgb Cancelled 10.8 L
Hct Cancelled 36.2 L
Plt Count Cancelled 179
Sodium 139
Potassium 5.3 H
Chloride 91 L
Carbon Dioxide 44 H
BUN 33 H
Creatinine 0.5 L
Glucose 114 H
Calcium 8.8
Total Bilirubin 0.4
AST 32
ALT 17
Alkaline Phosphatase 53
Vital Signs:
Vital Signs
Temp Pulse Resp BP Pulse Ox
98.2 F 65 22 109/57 98
06/11/24 05:05 06/11/24 06:00 06/11/24 06:00 06/11/24 06:00 06/11/24 06:00
I&O
06/09/24 06/10/24 06/11/24
06:59 06:59 06:59
Output Total 150 / 150
Balance -150 / -150
[2024-06-11] MEDS: PULMICORT 0.5 MG INH ×2 (08:10→20:43)
[2024-06-11] MEDS: DUONEB 3 ML INH ×4 (08:10→20:43)
[2024-06-11] MEDS: LOKELMA 10 GRAM PO (09:39)
[2024-06-11] MEDS: LOPRESSOR 25 MG PO ×2 (09:39→20:12)
[2024-06-11 09:40] LABS: Glucose - Point of Care 148 mg/dl (70-99)
--- NOTE | 2024-06-11 10:09 | CM ---
Spoke with patient's spouse to obtain information for assessment. Patient lives with her spouse in a two story home with two steps to enter. She has been mostly independent with her dressing, bathing, personal care and all other ADLs. She has been
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 She uses a walker for long distances and a cane for short distances. She is on Continuous o2. She also has a Bipap and a Nebulizer. Her spouse
drives and can get her to appointments and does the shopping.
Patient has had [facility] in the past. She has also been to [facility] but family does not want her to return there.
Patient's spouse stated that he is home all day and takes care of all of her needs. He confirmed that the scope of her care does not surpass what he can provide. As this is the case, if patient able, he would like for her to return home with VN if
indicated. He understands that medical staff PT will evaluate and make recommendations. PT order in.
Patient has a prescription plan and uses [facility] for all of her medications (in [place]).
Her PCP is, Dr. Freddie Moore.
Patient's spouse hoping that patient will be able to return right home when medically cleared. VN if indicated. He and patient will remain receptive to what is indicated.
Plan: Case management will continue to follow and assist with discharge planning. Hopeful for home with VN.
[2024-06-11 13:21] LABS: Glucose - Point of Care 202 mg/dl (70-99)
[2024-06-11] MEDS: NOVOLOG FLEXPEN-MODERATE RESISTANCE 3 UNITS SC (13:43)
--- NOTE | 2024-06-11 13:58 | PTCARENOTE ---
Patient is out of bed to chair, sleeping a lot. Confused at times, oriented at times. stating this is a change from baseline. Discussed with Dr. Leon. Patient was retaining urine this morning, once placed on the commode she was able to
void, post void residual noted. See MAR for details. Patient is eating well. Denying pain when asked.
--- NOTE | 2024-06-11 14:13 | W.PN.PUL3 ---
Today's Communication / Plan
-
ABG compensated but baseline CO2 is worse.
BiPAP will be adjusted 15/5 with a backup rate of 14. In the outpatient we can increase intensity, she already uses for 10-hour. Alternatively we can transition to noninvasive mechanical ventilation which has been tried in the past and she did not
tolerate. She would like to hold off on that for now.
Continue nebulizer therapy
Continue steroids-unclear if symptoms were related more to relative adrenal insufficiency, patient has been under a lot of stress and she takes a low-dose of steroids in the outpatient setting.
Will follow.
Assessment
-
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
confusion, shortness of breath, found to have CO2 level greater than 115. We are asked to help from a pulmonary standpoint
Acute on chronic hypercapnic respiratory failure, failure of home PAP use
VBG with CO2 greater than 115
Suspected baseline CO2 level around 70
Serum bicarbonate 52 on presentation
Influenza, COVID, RSV negative
Increasing lethargy, fatigue, shortness of breath
Dilated RV, akinesis of free wall, PA pressure 58
Per echo 2021
Diastolic dysfunction, EF greater than 70%
Pulmonary cachexia
Conditions present prior to admission:
History of severe lung disease including radiation fibrosis, severe bronchiectasis
Mixed obstructive/restrictive lung disease
FVC 0.8/31%, ratio 56
Patient declined more aggressive therapy (vest therapy/nebulizers/chronic antibiotics) did not tolerate azithromycin
History of VDRF 2021 x 2
Successfully extubated
COPD-Gold stage IV
Chronic hypoxemic, on 2 L
Chronic hypercapnia, on BiPAP 15/5
Tried Trilogy Vent in past (did not tolerate)
Chronic radiation injury-chronic bronchiectasis history of non-Hodgkin lymphoma
Thickened pleura
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
R breast carcinoma status post lumpectomy and XRT, breast mass removed 2014
Recurrence with bleeding, status post hormonal therapy
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
Hypertension
Chronic back pain, Vertebral fracture, osteoporosis
Limited DNR (no CPR), would except mechanical ventilation
Plan/recommendations
At this time, patient with complex pulmonary history. It appears that her baseline CO2 is likely around 70
Serum bicarbonate presently 52
No new medications, no fevers, no pain medications as outpatient
Patient on chronic prednisone therapy, 5 mg
Well-known to me from the outpatient office. Multiple prior admissions for hypercapnic respiratory failure. Has been relatively stable in the outpatient setting using her noninvasive ventilator throughout the day and at bedtime.
Plan:
There does not appear to be a clear trigger for her worsening hypercapnia
RSV, influenza, COVID-negative
Chest x-ray with chronic changes, no significant worsening
Patient denies any pain medications, denies alcohol use
Admits to 11 hours of the day of BiPAP therapy
For now, continue with BiPap increased to 15/5 with a backup rate of 14.
ABG 06/10/2024: 7.38/84/68.
Mental status improved-advance diet.
-
Patient was intubated and ventilated back in 2001 x 2 for surgery, fall
At that time, extubated
is okay for intubation if needed but does not want CPR
Given unclear cause of worsening hypercapnia, reviewed that intubation may worsen overall muscle weakness and worsening hypercapnia. He is aware
Patient did try trilogy ventilator at home, did not tolerate
May need to try V60 ventilator if needed depending on follow-up blood gas-this will be an ongoing discussion.
-
Worsening hypercapnia may be to muscle weakness due to muscle mass loss that has been ongoing issue with her. proBNP is normal. No evidence for volume overload or RV dysfunction.
Troponin negative.
No evidence for infection.
Continue IV corticosteroids without taper today 06/11/2024
Continue with budesonide, DuoNeb therapy
If metabolic alkalosis worsen may need to consider Diamox.
Discussed with patient she has been under a lot of stress, with the main caregiver recently was diagnosed with possible brain tumor, cancer of the lung on chemotherapy. They have not been able to drive.
Increased stress levels. She is on a very low-dose of prednisone perhaps there was some degree of adrenal insufficiency.
Continue IV corticosteroid for now. Upon discharge we will keep her on higher doses.
Activity limited by history of back fractures, back pain
Evaluate for PT/OT stable
DVT prophylaxis: Patient on Lovenox
GI prophylaxis: While on steroids
Will follow-up
Diagnostic Data
CXR 06/10/24: No acute findings. Chronic right pleural thickening, extensive bronchiectasis. No change compared to 2022
Abdominal x-ray 11/09/21-Feeding tube overlies the left mid abdomen likely within the body of the stomach, nonobstructive bowel gas pattern
Pelvic and hip x-rays 11/08/21-acute nondisplaced intertrochanteric fracture of the left femur with 35� of medial angulation, lumbar scoliosis with compression fractures L2, L3 and L4, osteoporosis and right hip replacement
CT chest 05/2021� There is moderate pleural-parenchymal airspace disease with associated bronchiectasis in the right upper lobe with associated superior retraction of the right hilum. This has progressed in the interval since the prior study but more
likely is progression of chronic disease than superimposed acute inflammatory change. Similarly, there is pleural-parenchymal airspace disease at the medial right lung base which is more likely chronic than acute though it was not present on the
prior study.
CT chest 11/09/21-enlarged right ventricle, right atrium and diffuse cardiac enlargement, no aortic dissection or pulmonary embolism, collateral vessels and upper chest noted, worsening chronic lung changes with increased groundglass past patient's
both lung bases with associated pleural effusions, possible aspiration, endotracheal tube tip at john, new compression fractures of the thoracic spine, Doppler tube tip in the body of the stomach
CT head 11/08/21-no focal or acute intracranial abnormalities, mild diffuse cortical atrophy
PET 06/14/18:� pulmonary nodules, chronic R middle lobe atelectasis vs fibrosis
Echocardiogram 11/09/21-left ventricle small in size, hyperdynamic, EF 70%, stage I diastolic dysfunction, dilated right ventricle with akinesis of the mid free wall sparing the base and apex consistent with positive Rueda sign, moderate tricuspid
regurgitation, IVC is normal size and does not collapse of the patient is intubated and sedated with a PEEP of 5 cm, PA systolic estimated 58
Sputum culture-endotracheal 05/21/21- Ralstonia pickettii
Tracheal aspirate culture 10/03/19-Pseudomonas
Endotracheal Culture 10/02/19-Pseudomonas
All relevant imaging reviewed.
Subjective Data
-
Date of Service:
Date of Service: June 11, 2024
Chief Complaint: Pulmonary Follow Up (Acute on chronic hypercapnic respiratory failure/change in mental status)
Subjective:
Feels better today
More alert
Tolerating BiPAP
Review of Systems
Cardiopulmonary: Dyspnea, Dyspnea on Exertion and Cough
Objective Data
Data Reviewed
Vital Signs / I&O / Oxygen:
Vital Signs
Temp Pulse Resp BP Pulse Ox
98.2 F 69 25 123/71 96
06/11/24 11:00 06/11/24 12:41 06/11/24 12:41 06/11/24 12:41 06/11/24 11:43
Intake and Output
06/10/24 06/11/24 06/12/24
06:59 06:59 06:59
Intake Total 100 / 100
Output Total 150 / 150 200 / 200
Balance -150 / -150 -100 / -100
SaO2 96
Nasal Cannula flow liters per 4
minute
Physical Exam
General: Respiratory Distress (None at rest) and Other (Cachectic)
HEENT: Normocephalic
Cardiovascular: S1-S2
Respiratory: Non-Labored Respirations
GI: Soft and Non Distended
Neurology: Awake and Alert
Skin: Warm
Labs/Micro/Reports
Lab Data
06/11/24 05:25
06/11/24 04:05
Laboratory Results
06/10/24
14:41
pH 7.38
pCO2 84 H*
pO2 68 L
HCO3 49.7 H*
O2 Delivery Level Not Reportable
Microbiology
06/10/24 12:13 Nasal Swab Respiratory Syncytial Virus Ag - Final
Negative for Respiratory Syncytial Virus.
A false negative result may be obtained with a specimen
collected early in the acute phase. If symptoms persist, a
new specimen should be tested.
06/10/24 10:34 Nasal Swab Influenza Types A & B (VIRAJ) - Final
Negative for Influenza A & B, NAAT
Negative results must be combined with clinical observations
and patient history.
Nucleic Acid Amplification test (NAAT)performed on the
[employer] platform.
[2024-06-11] MEDS: LOVENOX 30 MG SC (16:51)
[2024-06-11] MEDS: ZITHROMAX INFUSION 250 IV (16:51)
[2024-06-11] MEDS: NOVOLOG FLEXPEN-MODERATE RESISTANCE 1 UNITS SC (16:59)
[2024-06-11 17:06] LABS: Glucose - Point of Care 177 mg/dl (70-99)
[2024-06-11 22:04] LABS: Glucose - Point of Care 221 mg/dl (70-99)
[2024-06-12] VITALS (14 sets, daily range): BP systolic 104–142; BP diastolic 49–120; PULSE 2–67; BMI 15.9
[2024-06-12] MEDS: DECADRON 4 MG IV ×3 (02:38→22:23)
[2024-06-12 05:27] LABS: % Basophils 0.1 % (0-2); % Immature Granulocytes 0.5 % (0-0.5); % Lymphocytes 3.3 % (20.5-51.1); % Monocytes 5.9 % (1.7-9.3); % Neutrophils 90.2 % (42.2-75.2); Absolute Lymphocytes 0.3 10^3/uL (1.2-3.4); Absolute Monocytes 0.5 10^3/uL (0.1-0.6); Absolute Neutrophils 7.6 10^3/uL (1.4-6.5); Hematocrit 32.4 % (37.0-47.0); Hemoglobin 9.7 g/dL (12.0-16.0); Mean Corp Hgb Conc. 29.9 g/dL (33.0-37.0); Mean Corpuscular Hgb 31.4 pg (27.0-31.0); Mean Corpuscular Volume 104.9 fL (81.0-99.0); Mean Platelet Volume 10.1 fL (7.4-10.4); Nucleated Red Blood Cells % 0 %; Platelet Count 175 10^3/uL (130-400); Red Blood Cell Count 3.09 10^6/uL (4.20-5.40); Red Cell Dist. Width 13.3 % (11.5-14.5); White Blood Cell Count 8.5 10^3/uL (4.8-10.8)
[2024-06-12 05:41] LABS: ALT (SGPT) 15 U/L (0-35); AST (SGOT) 26 U/L (14-36); Albumin 2.8 g/dl (3.5-5.0); Alkaline Phosphatase 58 U/L (38-126); Blood Urea Nitrogen 36 mg/dl (7-17); Calcium 8.7 mg/dl (8.4-10.2); Chloride 88 mmol/L (98-107); Estimated Creatinine Clearance 49 ml/min; Glucose 136 mg/dl (70-99); Potassium 4.7 mmol/L (3.5-5.1); Sodium 136 mmol/L (135-145); Total Bilirubin 0.2 mg/dl (0.2-1.3); Total Protein 5.6 g/dl (6.3-8.2); eGFR > 60.00
[2024-06-12 06:05] LABS: Carbon Dioxide 45 mmol/L (22-30)
--- NOTE | 2024-06-12 06:57 | W.PN.HOSP.TC ---
Today's Communication/Plan
-
c/w Bipap
c/w steroid
g/w pulmonary recommendations
Assessment / Plan
Assessment / Plan
Physical Exam
General: Comfortable, not in distress
HEENT: Normocephalic, Anicteric, PERRLA, [place] Conjunctivae, No Ptosis and Oxygen
Respiratory: positive Rales/ Rhonchi, limited.
Cardiac: S1/S2 a
GI: Soft, Non Tender, Non Distended, Normal Bowel Sounds
Rectal: No bleeding
Genito-urinary: no hematuria
Musculoskeletal: No Clubbing, No Cyanosis, less Edema in ankles.
Neuro: Followed commands, Sleepy/ Drowsy
Psych: Calm
A/P:
#Acute on chronic hypoxic and hypercarbic respiratory failure/ baseline CO2 is likely around 70
#Acute on chronic COPD exacerbation 4 L nasal cannula dependent/steroid-dependent
#Former smoker 38-year half pack per day quit 20 years ago
COVID, flu, RSV negative
History of severe lung disease including radiation fibrosis, severe bronchiectasis
Mixed obstructive/restrictive lung disease
Patient currently on BiPAP, increase setting to 15/5. -Continue IV Decadron 4 mg every 8 hours, add ISS
-DuoNeb scheduled and as needed
CXR chronic changes
-Zithromax
-Continue budesonide 0.5 mg twice daily
-Incentive spirometry
- Appreciate pulmonary help
# Metabolic alkalosis, give Diamox
# Toxic metabolic encephalopathy
She seems to be more oriented now.
#Essential HTN
Continue metoprolol tartrate 25 mg twice daily
# Hyperkalemia, resolved.
Given Lokelma
# Anemia�history iron deficiency/B12 deficient
#Breast cancer status post XRT and chemo radiation 2016
#Non-Hodgkin's lymphoma approximately 15 years ago according to
Dry eyes
Continue Systane 1 drop both eyes daily as needed
Other PMH:
Legionnaires disease
previous right pneumothorax
bronchiectasis hx
dvt proph sq Lovenox
Total time spent to see the patient, examine the patient, review data and lab results, discuss treatment plan with patient and nursing staff around 55 minutes
Anticipated Discharge: > 48 hours
Subjective/Interval History
-
Date of Service: June 12, 2024
No chest pain
No sob
No abd pain
Objective Data
-
Labs:
Laboratory Results
06/12/24
05:09
WBC 8.5
Hgb 9.7 L
Hct 32.4 L
Plt Count 175
Sodium 136
Potassium 4.7
Chloride 88 L
Carbon Dioxide 45 H
BUN 36 H
Creatinine 0.5 L
Glucose 136 H
Calcium 8.7
Total Bilirubin 0.2
AST 26
ALT 15
Alkaline Phosphatase 58
Vital Signs:
Vital Signs
Temp Pulse Resp BP Pulse Ox
97.5 F 64 25 118/55 95
06/12/24 03:00 06/12/24 06:00 06/12/24 06:00 06/12/24 06:00 06/12/24 06:00
I&O
06/10/24 06/11/24 06/12/24
06:59 06:59 06:59
Intake Total 950 / 950
Output Total 150 / 150 275 / 275
Balance -150 / -150 675 / 675
[2024-06-12] MEDS: PULMICORT 0.5 MG INH ×2 (07:23→17:56)
[2024-06-12] MEDS: DUONEB 3 ML INH ×4 (07:23→17:55)
[2024-06-12 07:35] LABS: Glucose - Point of Care 141 mg/dl (70-99)
[2024-06-12] MEDS: NOVOLOG FLEXPEN-MODERATE RESISTANCE SC ×3 (08:35→17:48)
[2024-06-12] MEDS: LOPRESSOR 25 MG PO ×2 (08:35→19:53)
[2024-06-12] MEDS: DIAMOX 250 MG PO (10:38)
[2024-06-12 12:03] LABS: Glycohemoglobin (HgbA1c) 6.2 % (4.0-5.6)
[2024-06-12 12:56] LABS: Glucose - Point of Care 116 mg/dl (70-99)
--- NOTE | 2024-06-12 13:42 | W.PN.PUL3 ---
Today's Communication / Plan
-
Decrease dexamethasone to every 12, transition to prednisone tomorrow if continues to improve
ABG tomorrow
Continue BiPAP 15/5 backup rate of 14. Likely will need to adjust pressures in the outpatient setting.
If clinically improved on Thursday consider discharge.
Follow hemoglobin
Outpatient follow-up with Dr. Vitale
Assessment
-
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
confusion, shortness of breath, found to have CO2 level greater than 115. We are asked to help from a pulmonary standpoint
Acute on chronic hypercapnic respiratory failure, failure of home PAP use
VBG with CO2 greater than 115
Suspected baseline CO2 level around 70
Serum bicarbonate 52 on presentation
Influenza, COVID, RSV negative
Increasing lethargy, fatigue, shortness of breath
Dilated RV, akinesis of free wall, PA pressure 58
Per echo 2021
Diastolic dysfunction, EF greater than 70%
Pulmonary cachexia
Conditions present prior to admission:
History of severe lung disease including radiation fibrosis, severe bronchiectasis
Mixed obstructive/restrictive lung disease
FVC 0.8/31%, ratio 56
Patient declined more aggressive therapy (vest therapy/nebulizers/chronic antibiotics) did not tolerate azithromycin
History of VDRF 2021 x 2
Successfully extubated
COPD-Gold stage IV
Chronic hypoxemic, on 2 L
Chronic hypercapnia, on BiPAP 15/5
Tried Trilogy Vent in past (did not tolerate)
Chronic radiation injury-chronic bronchiectasis history of non-Hodgkin lymphoma
Thickened pleura
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
R breast carcinoma status post lumpectomy and XRT, breast mass removed 2014
Recurrence with bleeding, status post hormonal therapy
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
Hypertension
Chronic back pain, Vertebral fracture, osteoporosis
Limited DNR (no CPR), would except mechanical ventilation
Plan/recommendations :
At this time, patient with complex pulmonary history. It appears that her baseline CO2 is likely around 70
Serum bicarbonate presently 45
No new medications, no fevers, no pain medications as outpatient
Patient on chronic prednisone therapy, 5 mg
Well-known to Dr. Vitale from the outpatient office.
Multiple prior admissions for hypercapnic respiratory failure. Has been relatively stable in the outpatient setting using her noninvasive ventilator throughout the day and at bedtime.
Plan:
There does not appear to be a clear trigger for her worsening hypercapnia.
This morning 06/12/2024 feels that energy levels are slightly better. Denies shortness of breath at rest. Appetite is adequate.
-
RSV, influenza, COVID-negative
Chest x-ray with chronic changes, no significant worsening
Patient denies any pain medications, denies alcohol use
Admits to 11 hours of the day of BiPAP therapy
-
Discussed with patient she has been under significant stress, with the main caregiver recently was diagnosed with possible brain tumor, cancer of the lung on chemotherapy. They have not been able to drive.
Increased stress levels. She is on a very low-dose of prednisone perhaps there was some degree of adrenal insufficiency.
Continue IV corticosteroid for now. See taper. Will discharge with prednisone taper and decrease down to 10 mg until seen by Dr. Vitale. I will readdress in the outpatient setting.
-
For now, continue with BiPap increased to 15/5 with a backup rate of 14. May need to intensify pressure depending on pCO2.
We have contemplated in the past ventilator. She did not tolerate trilogy in the distant past. May need to look for other alternatives if pCO2 continues to increase.
ABG 06/10/2024: 7.38/84/68.
Mental status improved-advance diet.
Repeat ABG 06/13/2024.
-
Patient was intubated and ventilated back in 2001 x 2 for surgery, fall
At that time, extubated
is okay for intubation if needed but does not want CPR
-
Given unclear cause of worsening hypercapnia, reviewed that intubation may worsen overall muscle weakness and worsening hypercapnia. He is aware
-
Worsening hypercapnia may be to muscle weakness due to muscle mass loss that has been ongoing issue with her. proBNP is normal. No evidence for volume overload or RV dysfunction.
Troponin negative.
No evidence for infection.
Taper IV dexamethasone to 4 mg IV every 12 hours. If improved transition to prednisone tomorrow 40 mg X 2 days, 30 mg X 2 days and 20 mg X 2 days-decrease to 10 mg and stay at 10 mg until seen by Dr. Vitale.
Continue with budesonide, DuoNeb therapy-similar to outpatient therapy.
If metabolic alkalosis worsen may need to consider Diamox.
-
Hemoglobin drifting down 11.6> 10 point> 9.7. Could also be playing a role in symptoms.
No evidence for bleeding
Defer to primary team
-
Activity limited by history of back fractures, back pain-she is mostly sedentary.
Evaluate for PT/OT stable
DVT prophylaxis: Patient on Lovenox
GI prophylaxis: While on steroids
Will follow-up

Diagnostic Data
CXR 06/10/24: No acute findings. Chronic right pleural thickening, extensive bronchiectasis. No change compared to 2022
Abdominal x-ray 11/09/21-Feeding tube overlies the left mid abdomen likely within the body of the stomach, nonobstructive bowel gas pattern
Pelvic and hip x-rays 11/08/21-acute nondisplaced intertrochanteric fracture of the left femur with 35� of medial angulation, lumbar scoliosis with compression fractures L2, L3 and L4, osteoporosis and right hip replacement
CT chest 05/2021� There is moderate pleural-parenchymal airspace disease with associated bronchiectasis in the right upper lobe with associated superior retraction of the right hilum. This has progressed in the interval since the prior study but more
likely is progression of chronic disease than superimposed acute inflammatory change. Similarly, there is pleural-parenchymal airspace disease at the medial right lung base which is more likely chronic than acute though it was not present on the
prior study.
CT chest 11/09/21-enlarged right ventricle, right atrium and diffuse cardiac enlargement, no aortic dissection or pulmonary embolism, collateral vessels and upper chest noted, worsening chronic lung changes with increased groundglass past patient's
both lung bases with associated pleural effusions, possible aspiration, endotracheal tube tip at john, new compression fractures of the thoracic spine, Doppler tube tip in the body of the stomach
CT head 11/08/21-no focal or acute intracranial abnormalities, mild diffuse cortical atrophy
PET 06/14/18:� pulmonary nodules, chronic R middle lobe atelectasis vs fibrosis
Echocardiogram 11/09/21-left ventricle small in size, hyperdynamic, EF 70%, stage I diastolic dysfunction, dilated right ventricle with akinesis of the mid free wall sparing the base and apex consistent with positive Rueda sign, moderate tricuspid
regurgitation, IVC is normal size and does not collapse of the patient is intubated and sedated with a PEEP of 5 cm, PA systolic estimated 58
Sputum culture-endotracheal 05/21/21- Ralstonia pickettii
Tracheal aspirate culture 10/03/19-Pseudomonas
Endotracheal Culture 10/02/19-Pseudomonas
All relevant imaging reviewed.
Subjective Data
-
Date of Service:
Date of Service: June 12, 2024
Chief Complaint: Pulmonary Follow Up (Acute on chronic hypercapnic respiratory failure/change in mental status)
Objective Data
Data Reviewed
Vital Signs / I&O / Oxygen:
Vital Signs
Temp Pulse Resp BP Pulse Ox
98.9 F 77 18 118/55 99
06/12/24 11:11 06/12/24 11:21 06/12/24 11:21 06/12/24 06:00 06/12/24 11:21
Intake and Output
06/11/24 06/12/24 06/13/24
06:59 06:59 06:59
Intake Total 950 / 950
Output Total 150 / 150 275 / 275
Balance -150 / -150 675 / 675
SaO2 99
Nasal Cannula flow liters per 4
minute
Physical Exam
General: Respiratory Distress (None at rest) and Other (Cachectic)
HEENT: Normocephalic
Cardiovascular: S1-S2
Respiratory: Non-Labored Respirations
GI: Soft and Non Distended
Neurology: Awake and Alert
Skin: Warm
Labs/Micro/Reports
Lab Data
06/12/24 05:09
06/12/24 05:09
Microbiology
06/10/24 12:13 Nasal Swab Respiratory Syncytial Virus Ag - Final
Negative for Respiratory Syncytial Virus.
A false negative result may be obtained with a specimen
collected early in the acute phase. If symptoms persist, a
new specimen should be tested.
06/10/24 10:34 Nasal Swab Influenza Types A & B (VIRAJ) - Final
Negative for Influenza A & B, NAAT
Negative results must be combined with clinical observations
and patient history.
Nucleic Acid Amplification test (NAAT)performed on the
[employer] platform.
[2024-06-12] MEDS: ZITHROMAX INFUSION 250 IV (16:04)
[2024-06-12] MEDS: LOVENOX 30 MG SC (17:25)
[2024-06-12 17:59] LABS: Glucose - Point of Care 133 mg/dl (70-99)
[2024-06-12 21:29] LABS: Glucose - Point of Care 257 mg/dl (70-99)
[2024-06-13] VITALS (15 sets, daily range): BP systolic 107–140; BP diastolic 55–97; PULSE 2–64; O2SAT 99; BMI 15.6; BMI 15.8
--- NOTE | 2024-06-13 04:16 | PTCARENOTE ---
Patient AAOx3, drowsy. Pt was very confused upon waking up but was quickly reoriented. Pt made one attempt to get out of bed because she needed to use the bathroom. Assisted to the BSC with a standby assist of 1. Educated the pt on using the call
ochoa and has since then used the call ochoa appropriately. Pt on 4L at beginning of the shift, RT placed pt on the BiPAP, pt tolerating. Call ochoa is within reach.
[2024-06-13 05:14] LABS: B.E. 16.1 mmol/L; O2 Saturation % 96.4 % (94-98); PO2 70 mmHg (83-108); pH 7.38 (7.35-7.45)
[2024-06-13 05:17] LABS: HCO3 44.4 mmol/L (21-28); O2 Therapy 4L NC; PCO2 75 mmHg (32-35)
[2024-06-13 05:41] LABS: % Basophils 0.1 % (0-2); % Immature Granulocytes 0.7 % (0-0.5); % Lymphocytes 3.7 % (20.5-51.1); % Monocytes 4.6 % (1.7-9.3); % Neutrophils 90.9 % (42.2-75.2); Absolute Immature Granulocytes 0.1 10^3/uL (0-0.05); Absolute Lymphocytes 0.3 10^3/uL (1.2-3.4); Absolute Monocytes 0.4 10^3/uL (0.1-0.6); Hematocrit 36.9 % (37.0-47.0); Hemoglobin 11.2 g/dL (12.0-16.0); Mean Corp Hgb Conc. 30.4 g/dL (33.0-37.0); Mean Corpuscular Hgb 31.6 pg (27.0-31.0); Mean Corpuscular Volume 104.2 fL (81.0-99.0); Mean Platelet Volume 9.7 fL (7.4-10.4); Nucleated Red Blood Cells % 0 %; Platelet Count 199 10^3/uL (130-400); Red Blood Cell Count 3.54 10^6/uL (4.20-5.40); Red Cell Dist. Width 13.3 % (11.5-14.5); White Blood Cell Count 8.8 10^3/uL (4.8-10.8)
[2024-06-13 06:09] LABS: ALT (SGPT) 16 U/L (0-35); AST (SGOT) 26 U/L (14-36); Albumin 3.1 g/dl (3.5-5.0); Alkaline Phosphatase 58 U/L (38-126); Blood Urea Nitrogen 26 mg/dl (7-17); Calcium 9.1 mg/dl (8.4-10.2); Chloride 92 mmol/L (98-107); Estimated Creatinine Clearance 49 ml/min; Glucose 138 mg/dl (70-99); Potassium 4.6 mmol/L (3.5-5.1); Sodium 134 mmol/L (135-145); Total Bilirubin 0.4 mg/dl (0.2-1.3); eGFR > 60.00
[2024-06-13 06:37] LABS: Carbon Dioxide 41 mmol/L (22-30)
[2024-06-13] MEDS: DUONEB 3 ML INH ×4 (07:30→20:07)
[2024-06-13] MEDS: PULMICORT 0.5 MG INH ×2 (07:31→20:07)
[2024-06-13 08:17] LABS: Glucose - Point of Care 153 mg/dl (70-99)
[2024-06-13] MEDS: LOPRESSOR 25 MG PO ×2 (08:29→20:12)
[2024-06-13] MEDS: NOVOLOG FLEXPEN-MODERATE RESISTANCE 1 UNITS SC (08:29)
--- NOTE | 2024-06-13 09:10 | W.PN.HOSP.TC ---
Today's Communication/Plan
-
BiPAP. IV steroids. Pulmonary eval
Assessment / Plan
Assessment / Plan
Physical exam:
General: Acute on chronically ill
HEENT: Normocephalic, Atraumatic and Moist Mucous Membranes
Respiratory: Decreased breath sounds bilaterally; Negative Wheezes, Rales or Rhonchi
Cardiac: Regular Rhythm and S1/S2
GI: Soft, Nontender and Nondistended
Musculoskeletal: No Clubbing, No Cyanosis and No Edema
Neuro: Awake, Alert and Oriented, no neurological deficits, generalized weakness present
Psych: Calm
A/P:
Acute on chronic hypoxic hypercapnic respiratory failure:
Unclear trigger for her worsening hypercapnia but could be underlying worsening COPD
On IV steroids, dexamethasone 4 mg IV every 12 hours-plan to probably switch to oral tomorrow
On DuoNeb 4 times daily
On azithromycin 500 mg p.o. day
On Pulmicort twice daily
Pulmonary following
Blood gas shows pCO2 down to 75 today with pH of 7.38 which might be close to her baseline (pCO2 as high as 112)
She is on home PAP use
Continue BiPAP
PT OT recommending skilled rehab but patient and want to go home
Toxic metabolic encephalopathy:
Likely due to hypercapnia
History of pulmonary fibrosis due to radiation and bronchiectasis and pulmonary cachexia:
Patient has declined more aggressive airway mobilization therapy or has not tolerated
Anemia:
History of chronic iron deficiency anemia and B12 deficiency
Continue to monitor hemoglobin
Hypertension:
Continue metoprolol tartrate 25 mg twice a day
History of chronic back pain:
Not on pain medications currently
History of right breast cancer:
Status post lumpectomy, radiation in the past
History of Non-Hodgkin's lymphoma:
Chemo and radiation in the past
DVT prophylaxis:
Lovenox SQ
CODE STATUS:
Limited DNR--> does not want CPR but she wants mechanical ventilation if needed.
Total time spent on today's encounter was 52 minutes which included time spent in counseling the patient/family regarding diagnosis and treatment plan as listed above, goals of care, and symptom management. Case was discussed with nursing staff,
specialists, and care coordinators/case management. All labs and imaging personally reviewed by me. Remainder the time spent in detailed review of previous records, lab data, imaging, and other medical provider documentation.
Anticipated Discharge: 24 - 48 hours
Subjective/Interval History
-
Date of Service: June 13, 2024
Patient feels better than before. On supplemental oxygen.
Objective Data
-
Labs:
Laboratory Results
06/13/24 06/13/24
05:03 05:33
WBC 8.8
Hgb 11.2 L
Hct 36.9 L
Plt Count 199
HCO3 44.4 H*
Sodium 134 L
Potassium 4.6
Chloride 92 L
Carbon Dioxide 41 H
BUN 26 H
Creatinine 0.6
Glucose 138 H
Calcium 9.1
Total Bilirubin 0.4
AST 26
ALT 16
Alkaline Phosphatase 58
Vital Signs:
Vital Signs
Temp Pulse Resp BP Pulse Ox
97.6 F 70 33 139/64 95
06/13/24 07:20 06/13/24 07:33 06/13/24 07:33 06/13/24 06:00 06/13/24 07:33
I&O
06/12/24 06/13/24 06/14/24
06:59 06:59 06:59
Intake Total 950 / 950
Output Total 275 / 275 300 / 300
Balance 675 / 675 -300 / -300
--- NOTE | 2024-06-13 09:18 | W.PN.PUL3 ---
Today's Communication / Plan
-
Remains on 4L NC, baseline use of 2.5L
Lethargic on exam, continue BIPAP at night and PRN
ABG improving
PT/OT, ambulation
Mat consider evaluation for discharge
Assessment
-
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
confusion, shortness of breath, found to have CO2 level greater than 115. We are asked to help from a pulmonary standpoint
Acute on chronic hypercapnic respiratory failure, failure of home PAP use
VBG with CO2 greater than 115
Suspected baseline CO2 level around 70
Serum bicarbonate 52 on presentation
Influenza, COVID, RSV negative
Increasing lethargy, fatigue, shortness of breath
Dilated RV, akinesis of free wall, PA pressure 58
Per echo 2021
Diastolic dysfunction, EF greater than 70%
Pulmonary cachexia
Conditions present prior to admission:
History of severe lung disease including radiation fibrosis, severe bronchiectasis
Mixed obstructive/restrictive lung disease
FVC 0.8/31%, ratio 56
Patient declined more aggressive therapy (vest therapy/nebulizers/chronic antibiotics) did not tolerate azithromycin
History of VDRF 2021 x 2
Successfully extubated
COPD-Gold stage IV
Chronic hypoxemic, on 2.5 L
Chronic hypercapnia, on BiPAP 15/5
Tried Trilogy Vent in past (did not tolerate)
Chronic radiation injury-chronic bronchiectasis history of non-Hodgkin lymphoma
Thickened pleura
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
R breast carcinoma status post lumpectomy and XRT, breast mass removed 2014
Recurrence with bleeding, status post hormonal therapy
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
Hypertension
Chronic back pain, Vertebral fracture, osteoporosis
Limited DNR (no CPR), would except mechanical ventilation
Plan/recommendations :
Currently 95% on 4L (2.5 L at baseline)
At this time, patient with complex pulmonary history. It appears that her baseline CO2 is likely around 70
Serum bicarbonate presently 45
No new medications, no fevers, no pain medications as outpatient
Patient on chronic prednisone therapy, 5 mg
Well-known to Dr. Vitale from the outpatient office.
Multiple prior admissions for hypercapnic respiratory failure. Has been relatively stable in the outpatient setting using her noninvasive ventilator throughout the day and at bedtime.
There does not appear to be a clear trigger for her worsening hypercapnia.
This morning 06/12/2024 feels that energy levels are slightly better. Denies shortness of breath at rest. Appetite is adequate.
RSV, influenza, COVID-negative
Chest x-ray with chronic changes, no significant worsening
Patient denies any pain medications, denies alcohol use
Admits to 11 hours of the day of BiPAP therapy
Discussed with patient she has been under significant stress, with the main caregiver recently was diagnosed with possible brain tumor, cancer of the lung on chemotherapy. They have not been able to drive.
Increased stress levels. She is on a very low-dose of prednisone perhaps there was some degree of adrenal insufficiency.
Continue IV corticosteroid for now. See taper. Will discharge with prednisone taper and decrease down to 10 mg until seen by Dr. Vitale. I will readdress in the outpatient setting.
For now, continue with BiPAP increased to 15/5 with a backup rate of 14. May need to intensify pressure depending on pCO2.
We have contemplated in the past ventilator. She did not tolerate trilogy in the distant past. May need to look for other alternatives if pCO2 continues to increase.
ABG 06/10/2024: 7.38/84/68.
Mental status improved-advance diet.
Repeat ABG 06/13/2024--7./75
-
Patient was intubated and ventilated back in 2001 x 2 for surgery, fall
At that time, extubated
is okay for intubation if needed but does not want CPR
-
Given unclear cause of worsening hypercapnia, reviewed that intubation may worsen overall muscle weakness and worsening hypercapnia. He is aware
-
Worsening hypercapnia may be to muscle weakness due to muscle mass loss that has been ongoing issue with her. proBNP is normal. No evidence for volume overload or RV dysfunction.
Troponin negative.
No evidence for infection.
Taper IV dexamethasone to 4 mg IV every 12 hours. If improved transition to prednisone tomorrow 40 mg X 2 days, 30 mg X 2 days and 20 mg X 2 days-decrease to 10 mg and stay at 10 mg until seen by Dr. Vitale.
Continue with budesonide, DuoNeb therapy-similar to outpatient therapy.
If metabolic alkalosis worsen may need to consider Diamox.
-
Hemoglobin drifting down 11.6> 10 point> 9.7. Could also be playing a role in symptoms.
No evidence for bleeding
Defer to primary team
-
Activity limited by history of back fractures, back pain-she is mostly sedentary.
Evaluate for PT/OT stable
DVT prophylaxis: Patient on Lovenox
GI prophylaxis: While on steroids
Will follow-up
Diagnostic Data
CXR 06/10/24: No acute findings. Chronic right pleural thickening, extensive bronchiectasis. No change compared to 2022
Abdominal x-ray 11/09/21-Feeding tube overlies the left mid abdomen likely within the body of the stomach, nonobstructive bowel gas pattern
Pelvic and hip x-rays 11/08/21-acute nondisplaced intertrochanteric fracture of the left femur with 35� of medial angulation, lumbar scoliosis with compression fractures L2, L3 and L4, osteoporosis and right hip replacement
CT chest 05/2021� There is moderate pleural-parenchymal airspace disease with associated bronchiectasis in the right upper lobe with associated superior retraction of the right hilum. This has progressed in the interval since the prior study but more
likely is progression of chronic disease than superimposed acute inflammatory change. Similarly, there is pleural-parenchymal airspace disease at the medial right lung base which is more likely chronic than acute though it was not present on the
prior study.
CT chest 11/09/21-enlarged right ventricle, right atrium and diffuse cardiac enlargement, no aortic dissection or pulmonary embolism, collateral vessels and upper chest noted, worsening chronic lung changes with increased groundglass past patient's
both lung bases with associated pleural effusions, possible aspiration, endotracheal tube tip at john, new compression fractures of the thoracic spine, Doppler tube tip in the body of the stomach
CT head 11/08/21-no focal or acute intracranial abnormalities, mild diffuse cortical atrophy
PET 06/14/18:� pulmonary nodules, chronic R middle lobe atelectasis vs fibrosis
Echocardiogram 11/09/21-left ventricle small in size, hyperdynamic, EF 70%, stage I diastolic dysfunction, dilated right ventricle with akinesis of the mid free wall sparing the base and apex consistent with positive Rueda sign, moderate tricuspid
regurgitation, IVC is normal size and does not collapse of the patient is intubated and sedated with a PEEP of 5 cm, PA systolic estimated 58
Sputum culture-endotracheal 05/21/21- Ralstonia pickettii
Tracheal aspirate culture 10/03/19-Pseudomonas
Endotracheal Culture 10/02/19-Pseudomonas
All relevant imaging reviewed.
Subjective Data
-
Date of Service:
Date of Service: June 13, 2024
Chief Complaint: Pulmonary Follow Up (Acute on chronic hypercapnic respiratory failure/change in mental status)
Subjective:
Remains on 4L, no new complaints
Sitting in chair but falling asleep
Objective Data
Data Reviewed
Vital Signs / I&O / Oxygen:
Vital Signs
Temp Pulse Resp BP Pulse Ox
97.6 F 70 33 139/64 95
06/13/24 07:20 06/13/24 07:33 06/13/24 07:33 06/13/24 06:00 06/13/24 07:33
Intake and Output
06/12/24 06/13/24 06/14/24
06:59 06:59 06:59
Intake Total 950 / 950
Output Total 275 / 275 300 / 300
Balance 675 / 675 -300 / -300
SaO2 95
Nasal Cannula flow liters per 4
minute
Physical Exam
General: Respiratory Distress (None at rest) and Other (Cachectic, chronically ill appearing)
HEENT: Normocephalic and Sinus Tenderness
Cardiovascular: S1-S2 and Regular Rhythm
Respiratory: Clear (decreased overall, poor air movement) and Non-Labored Respirations
GI: Soft, Non Distended and Non Tender
Neurology: Awake, Alert, Oriented and Lethargic (while sitting in chair, arousable)
Skin: Warm and Dry
Labs/Micro/Reports
Lab Data
06/13/24 05:33
06/13/24 05:33
Laboratory Results
06/13/24
05:03
pH 7.38
pCO2 75 H*
pO2 70 L
HCO3 44.4 H*
O2 Delivery Level 4l nc
Microbiology
06/10/24 12:13 Nasal Swab Respiratory Syncytial Virus Ag - Final
Negative for Respiratory Syncytial Virus.
A false negative result may be obtained with a specimen
collected early in the acute phase. If symptoms persist, a
new specimen should be tested.
06/10/24 10:34 Nasal Swab Influenza Types A & B (VIRAJ) - Final
Negative for Influenza A & B, NAAT
Negative results must be combined with clinical observations
and patient history.
Nucleic Acid Amplification test (NAAT)performed on the
[employer] platform.
[2024-06-13] MEDS: DECADRON 4 MG IV ×2 (12:00→21:34)
[2024-06-13] MEDS: ZITHROMAX 500 MG PO (12:00)
[2024-06-13 12:28] LABS: Glucose - Point of Care 131 mg/dl (70-99)
[2024-06-13] MEDS: NOVOLOG FLEXPEN-MODERATE RESISTANCE SC (12:46)
[2024-06-13 17:11] LABS: Glucose - Point of Care 207 mg/dl (70-99)
--- NOTE | 2024-06-13 17:34 | CM ---
Patient with Hx COPD with Dx Acute on chronic hypoxic hypercapnic respiratory failure. O2 4L. BiPAP HS. Receiving PO Abx, Decadron. Per nurse assessment; forgetful. PT/OT recommend skilled rehab.
As per initial CM assessment; patient has home O2 and BiPAP in place.
Continue to follow patient's progress.
Plan follow up with patient/ re; SNF for rehab vs home with VN.
[2024-06-13] MEDS: LOVENOX 30 MG SC (17:56)
[2024-06-13] MEDS: NOVOLOG FLEXPEN-MODERATE RESISTANCE 3 UNITS SC (17:56)
[2024-06-13 21:46] LABS: Glucose - Point of Care 186 mg/dl (70-99)
[2024-06-14] VITALS (9 sets, daily range): BP systolic 101–133; BP diastolic 54–64; PULSE 2–68; BMI 15.2
[2024-06-14 05:02] LABS: % Basophils 0.1 % (0-2); % Immature Granulocytes 0.4 % (0-0.5); % Lymphocytes 3.8 % (20.5-51.1); % Monocytes 5.2 % (1.7-9.3); % Neutrophils 90.5 % (42.2-75.2); Absolute Lymphocytes 0.3 10^3/uL (1.2-3.4); Absolute Monocytes 0.4 10^3/uL (0.1-0.6); Absolute Neutrophils 6.6 10^3/uL (1.4-6.5); Hematocrit 36.6 % (37.0-47.0); Hemoglobin 11.1 g/dL (12.0-16.0); Mean Corp Hgb Conc. 30.3 g/dL (33.0-37.0); Mean Corpuscular Volume 102.2 fL (81.0-99.0); Mean Platelet Volume 9.7 fL (7.4-10.4); Nucleated Red Blood Cells % 0 %; Platelet Count 189 10^3/uL (130-400); Red Blood Cell Count 3.58 10^6/uL (4.20-5.40); White Blood Cell Count 7.3 10^3/uL (4.8-10.8)
[2024-06-14 05:13] LABS: ALT (SGPT) 16 U/L (0-35); AST (SGOT) 24 U/L (14-36); Albumin 3.2 g/dl (3.5-5.0); Alkaline Phosphatase 55 U/L (38-126); Blood Urea Nitrogen 26 mg/dl (7-17); Chloride 91 mmol/L (98-107); Estimated Creatinine Clearance 47 ml/min; Glucose 160 mg/dl (70-99); Potassium 4.7 mmol/L (3.5-5.1); Sodium 135 mmol/L (135-145); Total Bilirubin 0.3 mg/dl (0.2-1.3); Total Protein 5.9 g/dl (6.3-8.2); eGFR > 60.00
[2024-06-14 05:23] LABS: Carbon Dioxide 39 mmol/L (22-30)
[2024-06-14] MEDS: PULMICORT 0.5 MG INH (07:43)
[2024-06-14] MEDS: DUONEB 3 ML INH (07:44)
--- NOTE | 2024-06-14 08:21 | W.PN.HOSP.TC ---
Today's Communication/Plan
-
Discharge planning today
Assessment / Plan
Assessment / Plan
Physical exam:
General: Chronically ill
HEENT: Normocephalic, Atraumatic and Moist Mucous Membranes
Respiratory: Decreased breath sounds bilaterally; Negative Wheezes, Rales or Rhonchi
Cardiac: Regular Rhythm and S1/S2
GI: Soft, Nontender and Nondistended
Musculoskeletal: No Clubbing, No Cyanosis and No Edema
Neuro: Awake, Alert and Oriented, no neurological deficits, generalized weakness present
Psych: Calm
A/P:
Acute on chronic hypoxic hypercapnic respiratory failure:
Unclear trigger for her worsening hypercapnia but could be underlying worsening COPD
On IV steroids, dexamethasone 4 mg IV every 12 hours-switching to oral today
On DuoNeb 4 times daily
On azithromycin 500 mg p.o. day but can stop now.
On Pulmicort twice daily
Pulmonary following
Blood gas shows pCO2 down to 75 yesterday with pH of 7.38 which might be close to her baseline (pCO2 as high as 112)
She is on home PAP use
Continue BiPAP
PT OT recommending skilled rehab but patient and want to go home
Planning to go home today
Discussed with
healthcare consulting manager for discharge disposition
Toxic metabolic encephalopathy:
Likely due to hypercapnia
History of pulmonary fibrosis due to radiation and bronchiectasis and pulmonary cachexia:
Patient has declined more aggressive airway mobilization therapy or has not tolerated
Anemia:
History of chronic iron deficiency anemia and B12 deficiency
Continue to monitor hemoglobin
Hypertension:
Continue metoprolol tartrate 25 mg twice a day
History of chronic back pain:
Not on pain medications currently
History of right breast cancer:
Status post lumpectomy, radiation in the past
History of Non-Hodgkin's lymphoma:
Chemo and radiation in the past
DVT prophylaxis:
Lovenox SQ
CODE STATUS:
Limited DNR--> does not want CPR but she wants mechanical ventilation if needed.
Anticipated Discharge: Today
Subjective/Interval History
-
Date of Service: June 14, 2024
Patient alert. Less short of breath.
Objective Data
-
Labs:
Laboratory Results
06/14/24
04:50
WBC 7.3
Hgb 11.1 L
Hct 36.6 L
Plt Count 189
Sodium 135
Potassium 4.7
Chloride 91 L
Carbon Dioxide 39 H
BUN 26 H
Creatinine 0.6
Glucose 160 H
Calcium 9.0
Total Bilirubin 0.3
AST 24
ALT 16
Alkaline Phosphatase 55
Vital Signs:
Vital Signs
Temp Pulse Resp BP Pulse Ox
98.7 F 68 25 122/64 97
06/14/24 03:00 06/14/24 07:46 06/14/24 07:46 06/14/24 06:00 06/14/24 07:46
I&O
06/13/24 06/14/24 06/15/24
06:59 06:59 06:59
Intake Total 480 / 480
Output Total 300 / 300
Balance -300 / -300 480 / 480
[2024-06-14 08:22] LABS: Glucose - Point of Care 112 mg/dl (70-99)
[2024-06-14] MEDS: NOVOLOG FLEXPEN-MODERATE RESISTANCE SC (08:34)
[2024-06-14] MEDS: LOPRESSOR 25 MG PO (08:40)
[2024-06-14] MEDS: ZITHROMAX 500 MG PO (08:40)
--- NOTE | 2024-06-14 09:08 | W.DCSUMMARY ---
Discharge Summary
Discharge Data
Date of Admission: 06/10/24
Date of Discharge: 06/14/24
-
Pending Results: No
Hospital Course
Patient 83 years old female with history of COPD, chronic hypercapnia, history of VDRF, chronic hypoxia, on home BiPAP, bronchiectasis, pulmonary fibrosis from radiation, non-Hodgkin lymphoma, breast cancer, legionnaires pneumonia in the past, came
into the hospital with worsening shortness of breath and increased lethargy. Patient was found to be in COPD exacerbation and worsening hypercapnia. Pulmonary consulted. Patient was placed on IV steroids and patient was placed on BiPAP and
settings were adjusted. She was also placed on oral antibiotic. It was not very clear the reason for her exacerbation but probably progression of her underlying COPD. Patient did well rest of hospital stay. PT OT evaluated the patient
recommending skilled rehab but patient adamantly refuses to go to rehab. She is deconditioned overall but has improved. Pulmonary has cleared her for discharge. She will be discharged in relatively stable condition today.
Discharge duration: 35 minutes
Discharge Plan
-
Patient Disposition: Home (Routine Discharge)
Discharge Diagnosis/Procedures: Acute on chronic hypoxic hypercapnic respiratory failure. Toxic metabolic encephalopathy. Anemia.
Diet: Low Cholesterol
Activity: As tolerated
Blood Work: Please PCP to order CBC, BMP within 1 week
Referrals:
Catrachito Suarez MD [Active] - in two to four weeks
Freddie Gonzalez DO [Family Provider] - in less than 1 week
Prescriptions:
New
prednisone 10 mg Tablet
See Rx Instructions .ROUTE .COMPLEX Qty: 45 0RF
Rx Instructions:
Take By Mouth:
50 mg daily x3 days, 40 mg daily x3 days,
30 mg daily x3 days, 20 mg daily x3 days,
10 mg daily x3 days
Continued
Systane (propylene glycol) 0.4-0.3 % Drops
1 drp BOTH EYES DAILYPRN PRN (Reason: DRY EYES)
cholecalciferol (vitamin D3) 25 mcg (1,000 unit) Tablet
25 mcg PO DAILY
ferrous sulfate 325 mg (65 mg iron) tablet
325 mg PO DAILY
budesonide 0.5 MG/2 ML suspension for nebulization
0.5 mg inhalation R BID
ipratropium-albuterol 0.5 mg-3 mg(2.5 mg base)/3 mL solution for nebulization
3 ml inhalation R BID
acetaminophen 325 mg Tablet
650 mg PO BIDPRN PRN (Reason: mild pain)
thiamine HCl (vitamin B1) 100 mg Tablet
100 mg PO DAILY
metoprolol tartrate 25 mg Tablet
25 mg PO BID
Held
prednisone 5 mg Tablet
5 mg PO DAILY
Hold Instructions: Resume on 06/22/24.
Discharge Orders:
Discharge Patient (As Directed); Ordered 06/14/24
Ordered By: Kp Clark
Discharge Date and Time
Discharge Date/Time: 06/14/24 11:33
Print Language: [place] CITIZEN
--- NOTE | 2024-06-14 09:17 | W.PN.PUL3 ---
Today's Communication / Plan
-
Doing well, at baseline settings
Improved today, counseled on maintaining PAP use at home
Encouraged OOB/ambulation today, PT following
Discharge planning per team, FU OP pulm office
Assessment
-
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
confusion, shortness of breath, found to have CO2 level greater than 115. We are asked to help from a pulmonary standpoint
Acute on chronic hypercapnic respiratory failure, failure of home PAP use
VBG with CO2 greater than 115
Suspected baseline CO2 level around 70
Serum bicarbonate 52 on presentation
Influenza, COVID, RSV negative
Increasing lethargy, fatigue, shortness of breath
Dilated RV, akinesis of free wall, PA pressure 58
Per echo 2021
Diastolic dysfunction, EF greater than 70%
Pulmonary cachexia
Conditions present prior to admission:
History of severe lung disease including radiation fibrosis, severe bronchiectasis
Mixed obstructive/restrictive lung disease
FVC 0.8/31%, ratio 56
Patient declined more aggressive therapy (vest therapy/nebulizers/chronic antibiotics) did not tolerate azithromycin
History of VDRF 2021 x 2
Successfully extubated
COPD-Gold stage IV
Chronic hypoxemic, on 2.5 L
Chronic hypercapnia, on BiPAP 15/5
Tried Trilogy Vent in past (did not tolerate)
Chronic radiation injury-chronic bronchiectasis history of non-Hodgkin lymphoma
Thickened pleura
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
R breast carcinoma status post lumpectomy and XRT, breast mass removed 2014
Recurrence with bleeding, status post hormonal therapy
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
Hypertension
Chronic back pain, Vertebral fracture, osteoporosis
Limited DNR (no CPR), would except mechanical ventilation
Plan/recommendations :
Currently 95% on 4L (2.5 L at baseline)
At this time, patient with complex pulmonary history. It appears that her baseline CO2 is likely around 70
Serum bicarbonate presently 45
No new medications, no fevers, no pain medications as outpatient
Patient on chronic prednisone therapy, 5 mg
Well-known to Dr. Vitale from the outpatient office.
Multiple prior admissions for hypercapnic respiratory failure. Has been relatively stable in the outpatient setting using her noninvasive ventilator throughout the day and at bedtime.
There does not appear to be a clear trigger for her worsening hypercapnia.
This morning 06/12/2024 feels that energy levels are slightly better. Denies shortness of breath at rest. Appetite is adequate.
RSV, influenza, COVID-negative
Chest x-ray with chronic changes, no significant worsening
Patient denies any pain medications, denies alcohol use
Admits to 11 hours of the day of BiPAP therapy
Discussed with patient she has been under significant stress, with the main caregiver recently was diagnosed with possible brain tumor, cancer of the lung on chemotherapy. They have not been able to drive.
Increased stress levels. She is on a very low-dose of prednisone perhaps there was some degree of adrenal insufficiency.
Continue IV corticosteroid for now. See taper. Will discharge with prednisone taper and decrease down to 10 mg until seen by Dr. Vitale. I will readdress in the outpatient setting.
For now, continue with BiPAP increased to 15/5 with a backup rate of 14. May need to intensify pressure depending on pCO2.
We have contemplated in the past ventilator. She did not tolerate trilogy in the distant past. May need to look for other alternatives if pCO2 continues to increase.
ABG 06/10/2024: 7.38/84/68.
Mental status improved-advance diet.
Repeat ABG 06/13/2024--7./
-
Patient was intubated and ventilated back in 2001 x 2 for surgery, fall
At that time, extubated
is okay for intubation if needed but does not want CPR
-
Given unclear cause of worsening hypercapnia, reviewed that intubation may worsen overall muscle weakness and worsening hypercapnia. He is aware
-
Worsening hypercapnia may be to muscle weakness due to muscle mass loss that has been ongoing issue with her. proBNP is normal. No evidence for volume overload or RV dysfunction.
Troponin negative.
No evidence for infection.
Taper IV dexamethasone to 4 mg IV every 12 hours. If improved transition to prednisone tomorrow 40 mg X 2 days, 30 mg X 2 days and 20 mg X 2 days-decrease to 10 mg and stay at 10 mg until seen by Dr. Vitale.
Continue with budesonide, DuoNeb therapy-similar to outpatient therapy.
If metabolic alkalosis worsen may need to consider Diamox.
-
Hemoglobin drifting down 11.6> 10 point> 9.7. Could also be playing a role in symptoms.
No evidence for bleeding
Defer to primary team
-
Activity limited by history of back fractures, back pain-she is mostly sedentary.
Evaluate for PT/OT stable
DVT prophylaxis: Patient on Lovenox
GI prophylaxis: While on steroids
Will follow-up
Diagnostic Data
CXR 06/10/24: No acute findings. Chronic right pleural thickening, extensive bronchiectasis. No change compared to 2022
Abdominal x-ray 11/09/21-Feeding tube overlies the left mid abdomen likely within the body of the stomach, nonobstructive bowel gas pattern
Pelvic and hip x-rays 11/08/21-acute nondisplaced intertrochanteric fracture of the left femur with 35� of medial angulation, lumbar scoliosis with compression fractures L2, L3 and L4, osteoporosis and right hip replacement
CT chest 05/2021� There is moderate pleural-parenchymal airspace disease with associated bronchiectasis in the right upper lobe with associated superior retraction of the right hilum. This has progressed in the interval since the prior study but more
likely is progression of chronic disease than superimposed acute inflammatory change. Similarly, there is pleural-parenchymal airspace disease at the medial right lung base which is more likely chronic than acute though it was not present on the
prior study.
CT chest 11/09/21-enlarged right ventricle, right atrium and diffuse cardiac enlargement, no aortic dissection or pulmonary embolism, collateral vessels and upper chest noted, worsening chronic lung changes with increased groundglass past patient's
both lung bases with associated pleural effusions, possible aspiration, endotracheal tube tip at john, new compression fractures of the thoracic spine, Doppler tube tip in the body of the stomach
CT head 11/08/21-no focal or acute intracranial abnormalities, mild diffuse cortical atrophy
PET 06/14/18:� pulmonary nodules, chronic R middle lobe atelectasis vs fibrosis
Echocardiogram 11/09/21-left ventricle small in size, hyperdynamic, EF 70%, stage I diastolic dysfunction, dilated right ventricle with akinesis of the mid free wall sparing the base and apex consistent with positive Rueda sign, moderate tricuspid
regurgitation, IVC is normal size and does not collapse of the patient is intubated and sedated with a PEEP of 5 cm, PA systolic estimated 58
Sputum culture-endotracheal 05/21/21- Ralstonia pickettii
Tracheal aspirate culture 10/03/19-Pseudomonas
Endotracheal Culture 10/02/19-Pseudomonas
All relevant imaging reviewed.
Total time spent on this encounter __35__ includes review of history, physical exam, medications, laboratory data, personal review of imaging, extensive review of outpatient records, discussion with care team and respiratory therapy.
Subjective Data
-
Date of Service:
Date of Service: June 14, 2024
Chief Complaint: Pulmonary Follow Up (Acute on chronic hypercapnic respiratory failure/change in mental status)
Subjective:
Doing well, back to baseline
Wants to go home
Objective Data
Data Reviewed
Vital Signs / I&O / Oxygen:
Vital Signs
Temp Pulse Resp BP Pulse Ox
98.7 F 86 25 119/59 97
06/14/24 03:00 06/14/24 08:40 06/14/24 07:46 06/14/24 08:40 06/14/24 07:46
Intake and Output
06/13/24 06/14/24 06/15/24
06:59 06:59 06:59
Intake Total 480 / 480
Output Total 300 / 300
Balance -300 / -300 480 / 480
SaO2 97
Nasal Cannula flow liters per 4
minute
Physical Exam
General: Respiratory Distress (None at rest) and Other (Cachectic, chronically ill appearing)
HEENT: Normocephalic and Sinus Tenderness
Cardiovascular: S1-S2 and Regular Rhythm
Respiratory: Clear (decreased overall, poor air movement) and Non-Labored Respirations
GI: Soft, Non Distended and Non Tender
Neurology: Awake, Alert, Oriented and Lethargic (while sitting in chair, arousable)
Skin: Warm and Dry
Labs/Micro/Reports
Lab Data
06/14/24 04:50
06/14/24 04:50
[2024-06-14] MEDS: DELTASONE 40 MG PO (09:50)
--- NOTE | 2024-06-14 10:23 | VNURNOTE ---
Home Health Liaison spoke with patient;s spouse Alex to discuss [facility] nurse/therapy, visits, schedule and homebound status. He is agreeable and familiar with [facility] services. He understands that visits at home will be 2-3 x per week to assess and
teach medical management. Spouse is aware that [facility] will contact them for start of care in 1-2 days after discharge from . [facility] referral completed in [facility].
[2024-06-14] MEDS: DUONEB INH (11:10)
--- NOTE | 2024-06-14 12:14 | CM ---
Patient seen at bedside and she stated that she completed IMM and signed form placed on chart. Patient called stating that he was picking patient up this am and per nursing they declined SNF. Patient not intrested in SNF. CM tt to [facility]
liaison. Patient was seen by [facility] and they will start with update. Patient for discharge home today with [facility]. Patient to transport and has home O2 in place. CM will continue to follow for discharge planning needs.
Plan; home with [facility] to follow
== END 2024-06-14 11:33 | disposition home health service (06) | DRG 189 ==
LOC: IMU 13:29
PROVIDERS: Clinical Nurse Specialist Family Health; Internal Medicine Critical Care Medicine; Physician Assistant; ADMITTING PHYSICIAN Hospitalist; ATTENDING PHYSICIAN Hospitalist; CONSULT PHYSICIAN Internal Medicine Critical Care Medicine; EMERGENCY PHYSICIAN Emergency Medicine; FAMILY PHYSICIAN Internal Medicine
PROC: 5A09357 Assistance with Respiratory Ventilation, Less than 24 Consecutive Hours, Continuous Positive Airway Pressure (ICD-10-PCS; 2024-06-10)
DX: J96.21 Acute and chronic respiratory failure with hypoxia (principal); G92.8 Other toxic encephalopathy; A48.1 Legionnaires' disease; J44.1 Chronic obstructive pulmonary disease with (acute) exacerbation; J70.1 Chronic and other pulmonary manifestations due to radiation; R64 Cachexia; Z68.1 Body mass index [BMI] 19.9 or less, adult; J96.22 Acute and chronic respiratory failure with hypercapnia; D64.9 Anemia, unspecified; I10 Essential (primary) hypertension; Z92.3 Personal history of irradiation; Z85.3 Personal history of malignant neoplasm of breast; Y84.2 Radiological procedure and radiotherapy as the cause of abnormal reaction of the patient, or of later complication, without mention of misadventure at the time of the procedure; Z87.891 Personal history of nicotine dependence; Z85.72 Personal history of non-Hodgkin lymphomas; J47.9 Bronchiectasis, uncomplicated; Z99.81 Dependence on supplemental oxygen; Z87.01 Personal history of pneumonia (recurrent); Z87.81 Personal history of (healed) traumatic fracture; I27.20 Pulmonary hypertension, unspecified; Z90.10 Acquired absence of unspecified breast and nipple; M81.0 Age-related osteoporosis without current pathological fracture; G89.29 Other chronic pain; Z79.899 Other long term (current) drug therapy; Z79.51 Long term (current) use of inhaled steroids; Z11.52 Encounter for screening for COVID-19; Z66 Do not resuscitate; Z79.52 Long term (current) use of systemic steroids; Z82.49 Family history of ischemic heart disease and other diseases of the circulatory system; Z92.21 Personal history of antineoplastic chemotherapy; Z96.641 Presence of right artificial hip joint
CPT/HCPCS: 36600; 71046; 80053; 82805; 82962; 83036; 83880; 84484; 85025; 87502; 87807; 87811; 93005; 94640; 94660; 96374; 97116; 97163; 97167; 99291

== ENCOUNTER → 2024-06-21 10:41 | Outpatient (REF) | payer OTHER, SELFPAY ==
[2024-06-21 11:15] LABS: % Basophils 0.1 % (0-2); % Eosinophils 2.4 % (0-6); % Immature Granulocytes 0.6 % (0-0.5); % Lymphocytes 11.9 % (20.5-51.1); % Monocytes 10.5 % (1.7-9.3); % Neutrophils 74.5 % (42.2-75.2); Absolute Eosinophils 0.2 10^3/uL (0-0.7); Absolute Immature Granulocytes 0.1 10^3/uL (0-0.05); Absolute Lymphocytes 1.1 10^3/uL (1.2-3.4); Absolute Neutrophils 6.8 10^3/uL (1.4-6.5); Hematocrit 38.9 % (37.0-47.0); Hemoglobin 11.9 g/dL (12.0-16.0); Mean Corp Hgb Conc. 30.6 g/dL (33.0-37.0); Mean Corpuscular Hgb 31.2 pg (27.0-31.0); Mean Corpuscular Volume 102.1 fL (81.0-99.0); Mean Platelet Volume 9.7 fL (7.4-10.4); Nucleated Red Blood Cells % 0 %; Platelet Count 228 10^3/uL (130-400); Red Blood Cell Count 3.81 10^6/uL (4.20-5.40); Red Cell Dist. Width 13.2 % (11.5-14.5); White Blood Cell Count 9.1 10^3/uL (4.8-10.8)
[2024-06-21 11:56] LABS: Blood Urea Nitrogen 27 mg/dl (7-17); Calcium 9.1 mg/dl (8.4-10.2); Chloride 84 mmol/L (98-107); Glucose 117 mg/dl (70-99); Potassium 4.7 mmol/L (3.5-5.1); Sodium 134 mmol/L (135-145); eGFR > 60.00
[2024-06-21 12:17] LABS: Carbon Dioxide 44 mmol/L (22-30)
== END ==
LOC: REG 10:41
PROVIDERS: ATTENDING PHYSICIAN Internal Medicine
DX: J44.9 Chronic obstructive pulmonary disease, unspecified (principal); J47.9 Bronchiectasis, uncomplicated
CPT/HCPCS: 36415; 80048; 85025

== ENCOUNTER → 2024-07-06 15:54 | Outpatient (REF) | payer OTHER, SELFPAY ==
[2024-07-06 16:43] LABS: % Basophils 0.2 % (0-2); % Eosinophils 1.7 % (0-6); % Immature Granulocytes 0.5 % (0-0.5); % Lymphocytes 5.4 % (20.5-51.1); % Monocytes 5.6 % (1.7-9.3); % Neutrophils 86.6 % (42.2-75.2); Absolute Eosinophils 0.2 10^3/uL (0-0.7); Absolute Lymphocytes 0.5 10^3/uL (1.2-3.4); Absolute Monocytes 0.5 10^3/uL (0.1-0.6); Absolute Neutrophils 7.6 10^3/uL (1.4-6.5); Hematocrit 35.3 % (37.0-47.0); Mean Corp Hgb Conc. 31.2 g/dL (33.0-37.0); Mean Corpuscular Hgb 31.7 pg (27.0-31.0); Mean Corpuscular Volume 101.7 fL (81.0-99.0); Nucleated Red Blood Cells % 0 %; Red Blood Cell Count 3.47 10^6/uL (4.20-5.40); Red Cell Dist. Width 13.3 % (11.5-14.5); White Blood Cell Count 8.8 10^3/uL (4.8-10.8)
[2024-07-06 16:53] LABS: ALT (SGPT) 16 U/L (0-35); AST (SGOT) 29 U/L (14-36); Albumin 3.9 g/dl (3.5-5.0); Alkaline Phosphatase 56 U/L (38-126); Blood Urea Nitrogen 38 mg/dl (7-17); Calcium 9.3 mg/dl (8.4-10.2); Chloride 92 mmol/L (98-107); Glucose 108 mg/dl (70-99); Potassium 4.8 mmol/L (3.5-5.1); Sodium 137 mmol/L (135-145); Total Bilirubin 0.6 mg/dl (0.2-1.3); Total Protein 6.5 g/dl (6.3-8.2); eGFR > 60.00
[2024-07-06 16:59] LABS: Mean Platelet Volume 11.8 fL (7.4-10.4); Platelet Count 137 10^3/uL (130-400)
[2024-07-06 17:10] LABS: Carbon Dioxide 38 mmol/L (22-30)
== END ==
LOC: REG 15:54
PROVIDERS: ATTENDING PHYSICIAN Internal Medicine Hematology & Oncology; FAMILY PHYSICIAN Internal Medicine
DX: C83.390 Primary central nervous system lymphoma (principal); C50.911 Malignant neoplasm of unspecified site of right female breast; C50.411 Malignant neoplasm of upper-outer quadrant of right female breast
CPT/HCPCS: 36415; 80053; 85025; 86300

== ENCOUNTER → 2024-08-15 13:06 | Outpatient (REF) | payer OTHER, SELFPAY ==
[2024-08-15 13:50] LABS: % Basophils 0.3 % (0-2); % Eosinophils 1.5 % (0-6); % Immature Granulocytes 0.3 % (0-0.5); % Lymphocytes 4.8 % (20.5-51.1); % Monocytes 6.2 % (1.7-9.3); % Neutrophils 86.9 % (42.2-75.2); Absolute Eosinophils 0.1 10^3/uL (0-0.7); Absolute Lymphocytes 0.4 10^3/uL (1.2-3.4); Absolute Monocytes 0.5 10^3/uL (0.1-0.6); Absolute Neutrophils 7.6 10^3/uL (1.4-6.5); Hematocrit 41.9 % (37.0-47.0); Hemoglobin 12.9 g/dL (12.0-16.0); Mean Corp Hgb Conc. 30.8 g/dL (33.0-37.0); Mean Corpuscular Hgb 31.7 pg (27.0-31.0); Mean Corpuscular Volume 102.9 fL (81.0-99.0); Nucleated Red Blood Cells % 0 %; Platelet Count 242 10^3/uL (130-400); Red Blood Cell Count 4.07 10^6/uL (4.20-5.40); Red Cell Dist. Width 13.2 % (11.5-14.5); White Blood Cell Count 8.8 10^3/uL (4.8-10.8)
[2024-08-15 15:34] LABS: Iron 131 ug/dl (37-170)
[2024-08-15 15:43] LABS: Percent Saturation 44 % (20-50); Total Iron Binding Capacity 294 ug/dl (265-497)
[2024-08-15 17:51] LABS: Ferritin 60.8 ng/ml (11.1-264.0)
[2024-08-15 18:23] LABS: Vitamin B12 722 pg/ml (239-931)
== END ==
LOC: REG 13:06
PROVIDERS: ATTENDING PHYSICIAN Nurse Practitioner Adult Health; FAMILY PHYSICIAN Internal Medicine
DX: C83.390 Primary central nervous system lymphoma (principal); C50.911 Malignant neoplasm of unspecified site of right female breast; C50.411 Malignant neoplasm of upper-outer quadrant of right female breast
CPT/HCPCS: 36415; 82607; 82728; 82746; 83540; 83550; 85025

== ENCOUNTER 2024-09-14 14:57 | Inpatient (IN) | payer OTHER, SELFPAY ==
[2024-09-14] VITALS (44 sets, daily range): BP systolic 67–154; BP diastolic 40–85; PULSE 2–129; BMI 14.7; BMI 15.0
--- NOTE | 2024-09-14 12:42 | ED.GENMED ---
Addendum entered and electronically signed by Simeon He MD 09/22/24 02:43:
Procedure note.
Intubation with 7.5 ETT with use of glidoscope, after sedation with etomidate/succinylcholine. Placement confirmed via auscultation and CXR. No complication.
Procedural consent obtained by admitting hospitalist who spoke with patient's spouse.
Original Note:
History of Present Illness
General
Chief Complaint: Breathing Problem
Source: patient
Exam Limitations: none
Time Seen by Provider: 09/14/24 12:17
Nursing documentation reviewed up to this point in time: agreed with
History of Present Illness
History of Present Illness:
Patient presents to ED from home via 911, after neighbor found the patient to be less responsive this morning. Per paramedics, patient found to be confused, requiring stimuli to stay awake, along with mild increased work of breathing. Patient does
have history of COPD requiring 2 L oxygen via nasal cannula. There is report of patient being possibly dehydrated, as patient's is currently hospitalized. Patient has been admitted in the hospital secondary to dehydration in the past.
Upon arrival, patient is alert and awake, and offers no complaints. Denies headache. Denies chest pain. Denies coughing. Denies vomiting or diarrhea. Patient does admit to decreased appetite.
Past History
Past History
ED Past Medical History: Cancer (non hodgkins lymphoma, Breast CA, s/p XRT and chemo), COPD, HTN, Other (legionaires pneumonia 1975, chronic partial R pneumothorax, B CTs.) and Other (Non-Hodgkin's lymphoma, breast cancer status post chemoradiation,
hypertension, Legionnaires' disease, previous right pneumothorax, bronchiectasis)
Social History
Tobacco: Former smoker
Alcohol: None
Drug: None
Personal:
Living: with family
Employment: Retired
Family History
Family History: Unable to obtain
Review of Systems
Review of Systems
Allergies reviewed?: Yes
All Other Systems: ROS reviewed and negative except as documented in HPI and ROS
Constitutional: Reports no symptoms; Denies fever
EENT: Reports no symptoms
Respiratory: Reports no symptoms
Cardiac: Reports no symptoms
ABD/GI: Reports no symptoms
: Reports no symptoms
Musculoskeletal: Reports no symptoms
Skin: Reports no symptoms
Neurological: Reports other (Confusion)
Phy Exam
Physical Exam
Physical Exam:
Physical Exam
General: moderate distress, acutely ill. afebrile
Head: nc/at. eomi
Neck: supple. normal range of motion.
Heart: s1/s2 regular rate and rhythm
Lungs: no acute respiratory distress. clear bilaterally
Abdomen: normal bowel sounds. not tender.
Neuro: somnolent but easily arousable and appropriate. no focal neurological deficits. normal speech
Skin: no rash
Psychiatric: well kept. interactive and cooperative
Extremities: no edema. no calf tenderness
Scores
Heart Failure Risk
Heart Failure Risk Score: Not Applicable
Course
Orders/Labs/Results
Orders:
Orders
09/14/24
Electrocardiogram (*1) Stat
Comment: DONE EMR
09/14/24 12:34
CXR2 [CR Chest - 2 Views ] Urgent
Comment:
Reason For Exam: SOB/Cough
09/14/24 12:36
Complete Blood Count/With Diff Urgent
Comprehensive Metabolic Panel Urgent
Creatine Phosphokinase Urgent
Comment: ADD ON
NT-proBNP Urgent
Urinalysis Reflex To Culture Urgent
Date Specimen was Collected: 09/14/24
Time Specimen was Collected: 12:35
Urine Microscopic Reflex Cult Urgent
09/14/24 12:54
0.9% Sodium Chloride 500 ml [Nss] 500 ml IV BOLUS
09/14/24 13:03
Arterial Blood Gas Urgent
%Oxygen/Room Air: 90
09/14/24 14:24
Admit/Transfer Patient As Directed
Co-Sign Provider:
Level of Care: Inpatient admission
Assign to:: ICU
Physician / Group: Aubrye
Diagnosis: Acute resp failure
Reason for Hospitalization: Intubation, intensive care
Expected length of stay greater than two midnights?: Yes
ELOS- Estimated Length of Stay in days: 4
I certify the patient meets the requirements for IP care: Yes
PRN Pain Medication Management As Directed
May give lesser potent ordered pain med per pt: Yes
preference::
Protocol:: Medication orders for pain may be administered in a
manner that supports deferring to patient preference
when the pt is:
- Requesting an ordered lesser potent pain medication.
Least to most potent pain medications are defined
as: acetaminophen < NSAID < tramadol < opioids
(morphine, oxycodone, hydromorphone).
- Requesting a lesser dose of the same medication IF
ORDERED.
- Requesting a less intrusive route of administration
if both routes are prescribed by the provider (PO <
IV).
09/14/24 14:25
Code Status As Directed
Resuscitation Status: Limited DNR
Limited DNR: -No CPR
Physician note:: intubation ok
09/14/24 14:26
FentaNYL 1,000 MCG/100 ML [Sublimaze] 1,000 mcg in 100 ml .ROUTE .STK-MED
09/14/24 14:34
Fentanyl Citrate/Pf [Sublimaze] 100 mcg .ROUTE .STK-MED ONE
Propofol 1,000,000 Mcg/100 ml [Diprivan] 1,000,000 mcg in 100 ml .ROUTE .STK-MED
09/14/24 14:35
CXR [CR Chest Portable - 1 View] Stat
Comment:
Reason For Exam: Intubation
Reason Study Needs to be Portable: Patient Unstable
09/14/24 14:39
Fentanyl Citrate/Pf [Sublimaze] 50 mcg IV NOW STA
09/14/24 14:53
Fentanyl Citrate/Pf [Sublimaze] 50 mcg IV [id number] PRN
Ventilator Initial Settings [RESP] Routine
Tidal Volume: 400
Rate: 18
FIO2: 40
PEEP: 5
09/14/24 Dinner
NPO
Allow oral meds: No
Allow clear liquids: No
FentaNYL 1,000 MCG/100 ML [Sublimaze] 1,000 mcg in 100 ml IV PER PROTOCOL
Indication:: Light Sedation
Begin Infusion:: Now
Goal:: pain score </= 1, CPOT 0-2, RASS 0 to -2
Maximum dose in mcg/hr:: 300
Continue currently infusing dose and titrate:: Yes
Titration Instructions:: Titrate every 30 minutes if patient exhibits signs of pain or discomfort
Titration Instructions:: (pain score >/= 2, CPOT>/= 3).
Titration Instructions:: Administer bolus dose and increase infusion by 25 mcg/hr.
Taper Instructions:: If pain score at goal for 4 consecutive hours (pain score </= 1, CPOT 0-2)
Taper Instructions:: decrease infusion by 50 mcg/hr every 2 hours.
Taper Instructions:: When dose </= 50 mcg/hr may turn infusion off and consider PRN
Taper Instructions:: intermittent bolus doses only.
Over-sedation Instructions:: If CPOT 0-2 (goal) and RASS -3 to -5 (below goal) decrease sedative by 50%
Over-sedation Instructions:: first. If pain score remains at goal and RASS remains below goal in 1 hour,
Over-sedation Instructions:: decrease opioid infusion by 50%.
Notify provider:: immediately if pt exhibits: chest wall rigidity, hemodynamic instability,
Notify provider:: agitation/pain despite maximum dosing, pain when RASS -3 to -5 (below goal)
Additional Instructions:: When starting infusion, administer bolus dose per PRN order first.
Additional Instructions:: Patient MUST be mechanically ventilated.
FentaNYL 1,000 MCG/100 ML [Sublimaze] 1,000 mcg in 100 ml IV PER PROTOCOL
Fentanyl Citrate/Pf [Sublimaze] 50 mcg IV [id number] PRN
Propofol 1,000,000 Mcg/100 ml [Diprivan] 1,000,000 mcg in 100 ml IV PER PROTOCOL
09/14/24 15:19
COVID-19 Antigen Routine
Source: Nasal Swab
09/14/24 16:25
0.9% Sodium Chloride 1000 ml [Nss] 1,000 ml IV 75 mls/hr
Calcium Gluconate 1,000 mg IV NOW STA
Dextrose 50%-Water [Dextrose 50% Syringe] 12.5 grams IV [id number] PRN
Dextrose 50%-Water [Dextrose 50% Syringe] 25 grams IV NOW STA
Heparin 5,000 units SC Q8
Insulin Human Regular [Novolin R] 5 units IV NOW STA
Ipratropium/Albuterol Sulfate [Duoneb] 3 ml INH R Q4HPRN PRN
Ipratropium/Albuterol Sulfate [Duoneb] 3 ml INH R QID
09/14/24 16:25
[employer] Consult Routine
Consulting Provider: Amarjit Allen
Was physician already notified: Yes
Activity As Directed
Activity Level: Bedrest
Bedside Glucose POST IV Insulin- HyperK+ Q1HX2,Q2HX2
Bedside Glucose PRE IV Insulin- HyperK+ NOW
DX Deep Vein Thrombosis Video Routine
09/14/24 20:00
FLUTICASONE PROPIONATE 110 mcg [Flovent 110 Mcg Inhaler] 4 puff INH R BID
09/15/24 02:32
BMP [Basic Metabolic Panel] IN AM
09/15/24 08:00
Pantoprazole [Protonix IV] 40 mg IV DAILY
Polyethylene Glycol Powder [Miralax] 17 grams TUBE DAILY
Abnormal Lab Results
09/14/24 09/14/24
12:36 13:03
RBC 3.66 L 10^6/uL
(4.20-5.40)
Hgb 11.6 L g/dL
(12.0-16.0)
MCV 108.2 H fL
(81.0-99.0)
MCH 31.7 H pg
(27.0-31.0)
MCHC 29.3 L g/dL
(33.0-37.0)
Abs Immat Gran (auto) 0.1 H 10^3/uL
(0-0.05)
Absolute Neuts (auto) 8.4 H 10^3/uL
(1.4-6.5)
Absolute Lymphs (auto) 0.3 L 10^3/uL
(1.2-3.4)
Absolute Monos (auto) 0.9 H 10^3/uL
(0.1-0.6)
Immature Gran % 0.7 H %
(0-0.5)
Neutrophils % 86.6 H %
(42.2-75.2)
Lymphocytes % 3.5 L %
(20.5-51.1)
pH 7.23 L
(7.35-7.45)
pCO2 108 H* mmHg
(32-35)
pO2 153 H mmHg
(83-108)
HCO3 45.2 H* mmol/L
(21-28)
ABG O2 Sat (Measured) 99.3 H %
(94-98)
Potassium 5.6 H mmol/L
(3.5-5.1)
Chloride 92 L mmol/L
(98-107)
Carbon Dioxide 40 H mmol/L
(22-30)
BUN 54 H mg/dl
(7-17)
Glucose 209 H mg/dl
(70-99)
Urine Ketones 1+ A
(Negative)
Ur Occult Blood Reflex 1+ A
(Negative)
Urine Bacteria (Reflex) Few A
(Negative)
Urine Albumin (Reflex) 3+ A
(Neg - Trace)
09/14/24 12:36
09/14/24 12:36
Vital Signs
Initial and Last Documented VS:
Initial Vital Signs
Temp Pulse Resp BP Pulse Ox
99.2 F 122 35 133/84 89
09/14/24 12:18 09/14/24 12:18 09/14/24 12:18 09/14/24 12:18 09/14/24 12:18
Last Documented Vital Signs
Temp Pulse Resp BP Pulse Ox
97.5 F 73 16 138/60 98
09/15/24 03:30 09/15/24 05:00 09/15/24 05:00 09/15/24 05:00 09/15/24 05:00
MDM/Problems Addressed
MDM/Problems Addressed:
History and exam consistent with mental status changes, likely secondary to hypercapnia along with dehydration. No focal neurological deficit noted. No indication for any imaging studies at this time. Patient will be started on BiPAP along with
IV fluids. Patient will be evaluated for ICU admission, as she is high risk for potential respiratory failure.
After evaluation by admitting hospitalist, patient noted to become less responsive to both verbal and physical stimuli. With concern for deteriorating mental status along with concern for potential airway compromise, decision made to intubate
patient in ED prior to transfer to ICU. Hospitalist spoke with patient's spouse and obtained consent for intubation emergently.
Patient intubated successfully with use of glide scope, after administering etomidate and succinylcholine. Patient stated afterwards with fentanyl infusion along with dose of vecuronium. Chest x-ray confirmed ET tube placement.
After successful intubation, patient's heart rate which was initially tachycardic improved. On the monitor, suggestion of ST elevation noted, prompting repeat EKG. What appeared to be early repolarization noted on multiple leads on EKG. EKG
discussed with on-call cardiology, Dr. Moran, who performed bedside echocardiogram. With grossly normal echocardiogram findings, without acute abnormality, decision made to withhold any invasive cardiac procedures/interventions. Patient will
be admitted to ICU for continual care
Critical care statement: A total of 60 minutes of critical care time was provided for this patient. This includes management of unstable vital signs, evaluation of the patient at bedside, reviewing the patient's pertinent medical records, review of
old EKGs and review of pertinent medical records. This time with separate from time utilized to perform the aforementioned documented procedures
*EKG
Interpreted by ED Provider?: Yes
EKG Intrepretation Date: 09/14/24
Heart Rate: 119
Rate: tachycardiac
Rhythm: sinus
[place]: normal axis
Interval: normal interval
*Critical Care Note
Total Time (30-74mins, 75-104mins- exclusive of procedures): 60 min
ED Attending Note
-
Portions of this chart may have been created with voice recognition software.� Occasional wrong word or��sound alike� substitutions may have occurred due to the inherent limitations of voice recognition software.
Discharge Plan
Departure
Patient Disposition: Admit
Date of Disposition: 09/14/24
Time of Disposition: 14:02
Admit to: ICU
Presentation/result/management discussed w/ accepting MD/DO: Hospitalist
Discharge Problem:
Altered mental status, Dehydration, Hypercarbia, Abnormal EKG
Interventions
Interventions:
*Risk Screen - Suicide Last Done: 09/14/24 12:18
*General Assessment Last Done: 09/14/24 12:18
*Neglect/Abuse Screening Last Done: 09/14/24 12:18
*ED- Fall Risk Assessment Last Done: 09/14/24 12:18
*ED COVID-19 Vaccine History Last Done: 09/14/24 12:18
*Nursing Disposition Last Done: 09/14/24 16:13
ED- Cardiac Assessment Last Done: 09/14/24 12:29
ED- Pulmonary Assessment Last Done: 09/14/24 14:34
Discharge Date and Time
Discharge Date/Time: 09/14/24 16:18
[2024-09-14 12:46] LABS: % Basophils 0.2 % (0-2); % Immature Granulocytes 0.7 % (0-0.5); % Lymphocytes 3.5 % (20.5-51.1); % Neutrophils 86.6 % (42.2-75.2); Absolute Immature Granulocytes 0.1 10^3/uL (0-0.05); Absolute Lymphocytes 0.3 10^3/uL (1.2-3.4); Absolute Monocytes 0.9 10^3/uL (0.1-0.6); Absolute Neutrophils 8.4 10^3/uL (1.4-6.5); Hematocrit 39.6 % (37.0-47.0); Hemoglobin 11.6 g/dL (12.0-16.0); Mean Corp Hgb Conc. 29.3 g/dL (33.0-37.0); Mean Corpuscular Hgb 31.7 pg (27.0-31.0); Mean Corpuscular Volume 108.2 fL (81.0-99.0); Mean Platelet Volume 9.8 fL (7.4-10.4); Nucleated Red Blood Cells % 0 %; Platelet Count 236 10^3/uL (130-400); Red Blood Cell Count 3.66 10^6/uL (4.20-5.40); Red Cell Dist. Width 12.6 % (11.5-14.5); White Blood Cell Count 9.7 10^3/uL (4.8-10.8)
[2024-09-14 12:48] LABS: Urine Albumin 3+ (Neg - Trace); Urine Bilirubin Negative (Negative); Urine Character Clear (Clear); Urine Color Yellow; Urine Glucose Negative (Negative); Urine Ketone 1+ (Negative); Urine Leukocyte Negative (Negative); Urine Nitrite Negative (Negative); Urine Occult Blood 1+ (Negative); Urine Specific Gravity 1.025 (<1.030); Urine Urobilinogen Negative (Neg - 1+)
[2024-09-14] MEDS: NSS 500 IV (12:54)
[2024-09-14 12:58] LABS: ALT (SGPT) 19 U/L (0-35); AST (SGOT) 29 U/L (14-36); Albumin 4.3 g/dl (3.5-5.0); Alkaline Phosphatase 74 U/L (38-126); Blood Urea Nitrogen 54 mg/dl (7-17); Calcium 9.6 mg/dl (8.4-10.2); Chloride 92 mmol/L (98-107); Estimated Creatinine Clearance 27 ml/min; Glucose 209 mg/dl (70-99); Potassium 5.6 mmol/L (3.5-5.1); Sodium 144 mmol/L (135-145); Total Bilirubin 0.9 mg/dl (0.2-1.3); Total Protein 7.2 g/dl (6.3-8.2); eGFR 56.25
[2024-09-14 13:07] LABS: NT-proBNP 1070 pg/ml
[2024-09-14 13:21] LABS: B.E. 13.8 mmol/L; O2 Saturation % 99.3 % (94-98); PO2 153 mmHg (83-108); pH 7.23 (7.35-7.45)
[2024-09-14 13:24] LABS: Urine Mucus Few
[2024-09-14 13:25] LABS: Urine Red Blood Cell 0-2 /HPF (0-2); Urine Squamous Cell 0-2 /LPF (Few)
[2024-09-14 13:26] LABS: PCO2 108 mmHg (32-35)
[2024-09-14 13:27] LABS: HCO3 45.2 mmol/L (21-28)
[2024-09-14 13:29] LABS: Urine Bacteria Few (Negative)
[2024-09-14 14:06] LABS: Carbon Dioxide 40 mmol/L (22-30)
--- NOTE | 2024-09-14 14:27 | PTCARENOTE ---
2 RN's, 1 PCT, ED MD, Pharmacy and 2 Respiratory Therapist bedside preparing Intubation.
--- NOTE | 2024-09-14 14:30 | HPS.HSE ---
Family Physician
-
Family Physician: NOT KNOW UNKNOWN - PT DOES
Chief Complaint
-
Unresponsive, shortness of breath
History of Present Illness
84-year-old female with chronic respiratory failure, COPD, found by neighbor to be less responsive and short of breath.
She lives at home with her but has been alone for the past 24 hours as her is now hospitalized here.
No reports of cough or wheezing at home. No reports of sedative medication use. Apparently was hospitalized here in June for COPD exacerbation and respiratory failure.
Unable to obtain any information from patient as she is unresponsive.
Medical History
Past Medical History
Past Medical History: Reports Other
Additional Past Medical History:
COPD
Radiation pneumonitis
Bronchiectasis
Right-sided breast cancer
Non-Hodgkin's lymphoma
Essential hypertension
Chronic anemia
Chronic respiratory failure -uses BiPAP 11 hours at night to sleep
Legionnaires disease
History of right pneumothorax
Past Surgical History: Reports Other
Additional Past Surgical History:
Left hip fracture repair
Partial right hip replacement
Social History
Tobacco: Former Smoker
Alcohol: None
Drug: None
Personal:
Living: With Family
Employment: Retired
Family History
Family History: Not pertinent
Allergies / Home Medications
Allergies reflects when Allergies were last updated in [employer].
Home Medications with original date entered in [employer]
Allergy/Medication List:
Allergies
Allergy/AdvReac Type Severity Reaction Status Date / Time
garlic AdvReac per Verified 09/14/24 12:18
patient
any food
with
garlic in
it caused
dizziness.
Home Medications
peg 400-propylene glycol 0.4 %-0.3 % eye drops (Systane (propylene glycol)) 1 drp BOTH EYES DAILYPRN PRN DRY EYES 11/10/21
budesonide 0.5 mg/2 mL suspension for nebulization 0.5 mg inhalation R BID Lung/breathing issues 11/25/21
cholecalciferol (vitamin D3) 25 mcg (1,000 unit) tablet 25 mcg PO DAILY Supplement 11/25/21
ferrous sulfate 325 mg (65 mg iron) tablet 325 mg PO DAILY Supplement 11/25/21
ipratropium 0.5 mg-albuterol 3 mg (2.5 mg base)/3 mL nebulization soln 3 ml inhalation R BID Lung/breathing issues 08/07/22
metoprolol tartrate 25 mg tablet 25 mg PO BID Blood Pressure 06/10/24
prednisone 5 mg tablet 10 mg PO DAILY 09/14/24
Review of Systems
-
Unable to obtain full review of systems at this time due to: Acuity
History Source: Family
A 12 point ROS was completed and negative except as noted: Yes
Physical Exam
Vital Signs
Vital Signs
Temp Pulse Resp BP Pulse Ox
99.2 F 163 26 127/69 92
09/14/24 12:18 09/14/24 14:00 09/14/24 14:00 09/14/24 14:00 09/14/24 14:00
Physical Exam
General: Other (Unresponsive)
HEENT: NormoCephalic and Anicteric
Respiratory: Decreased Breath Sounds
Cardiac: S1/S2, Regular Rhythm and Tachycardia
Breast: Deferred by me
GI: Soft, Non Tender and Non Distended
Genito-urinary: Deferred by me
Musculoskeletal: No Clubbing, No Cyanosis, Edema, Left Lower Extremity and Edema, Right Lower Extremity
Skin: Warm and Dry
Neuro: Sedated
Hematologic/Lymphatic: No Lymphadenopathy
Psych: Calm
Laboratory Results
-
09/14/24 12:36
09/14/24 12:36
Laboratory Results
pH 7.23 (7.35-7.45) L 09/14/24 13:03
pCO2 108 mmHg (32-35) H* 09/14/24 13:03
pO2 153 mmHg (83-108) H 09/14/24 13:03
HCO3 45.2 mmol/L (21-28) H* 09/14/24 13:03
Total Bilirubin 0.9 mg/dl (0.2-1.3) 09/14/24 12:36
AST 29 U/L (14-36) 09/14/24 12:36
ALT 19 U/L (0-35) 09/14/24 12:36
Alkaline Phosphatase 74 U/L (38-126) 09/14/24 12:36
Impression/Plan
-
Acute hypercapnic encephalopathy -presentation with decreased level of consciousness and now unresponsive. Recommend urgent admission to ICU, intubation. Discussed with ER physician and register clerk. Discussed with who is agreeable to
intubation.
No obvious trigger for hypercapnic encephalopathy other than underlying worsening of chronic respiratory failure. states that she is not on sedatives at home. Denies any recent illnesses.
Acute on chronic hypoxic/hypercapnic respiratory failure -intubate as above. Admit to intensive care. Check COVID.
2 view chest x-ray shows no significant change compared to prior. Possible chronic loculated right-sided pleural effusion or pleural thickening. Likely left apical pleural thickening.
ABG noted, pH 7.2, [id number], PO2 153, bicarb 45. Baseline pCO2 probably 75.
Previously intubated twice in 2021, successfully extubated.
Hyperkalemia -will treat with IV calcium, insulin, dextrose. Recheck labs later today. No obvious trigger for hyperkalemia.
COPD Gold stage IV -no wheezing on exam to suggest COPD exacerbation.
Essential hypertension -stable.
Chronic anemia -hemoglobin at baseline.
History of right breast cancer -treated with lumpectomy, radiation 2014. Had recurrence with bleeding, status post hormonal therapy.
History of NHL -treated with radiation, chemo, completed 2007.
Radiation pneumonitis -chronic pleural thickening.
Chronic bronchiectasis
History of legionnaires pneumonia 1975 complicated by right pneumothorax requiring bilateral chest tube placement.
Chronic low back pain/vertebral fracture/osteoporosis
Pulmonary cachexia -BMI 14.
Limited DNR -no CPR but patient agreeable to intubation. Confirmed with .
50 minutes spent in critical care, including time spent reviewing records, looking at radiology reports, laboratory reports, speaking with other providers, speaking with patient's neighbor, speaking with family, seeing and examining patient.
updated on the phone.
--- NOTE | 2024-09-14 14:36 | PTCARENOTE ---
Etomidate 15mg given @1432. Succinylcholine 60mg given @ 1432. Pt intubated by Clint He at bedside. ETT 7.5 and 22cm at the lip. Fentanyl 50mcg Bolus given @ 1437. Fentanyl 50mcg gttp started @1438. Propofol 10mg gttp
started at 1441. NSS 500ml Bolus started @ 1442. Propofol 30mg Bolus given @ 1443. Vecuronium 4mg given @ 1446. Propofol on stand by @ 1450 due to Hypotension. Fentanyl decreased to 25mcg @ 1451.
[2024-09-14] MEDS: SUBLIMAZE 50 MCG IV ×3 (14:37→20:21)
[2024-09-14] MEDS: SUBLIMAZE 100 IV (14:38)
--- NOTE | 2024-09-14 15:02 | PTCARENOTE ---
NSS 500ml Bolus started @ 1503.
--- NOTE | 2024-09-14 15:15 | PTCARENOTE ---
Pt's BP 142/75. Titrated Fentanyl to 50mcg and started Propofol @ 5mcg @ 1515. Per Kailash He. Will continue to monitor.
--- NOTE | 2024-09-14 15:16 | CON.INTV ---
Consultation
Consultation Request
Date/Time Consultation Requested: 09/14/2024
Date/Time Consultation Performed: 09/14/2024
Medical History
-
Chief Complaint: Shortness of breath, altered mental status
History of Present Illness:
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
confusion and shortness of breath for 24 hours. She lives at home with who assists in her care, however he has been hospitalized at [facility] and she has been alone. There is concern for dehydration and decreased oral intake. Unable to obtain
history directly from patient as she was intubated by the time I arrived. Additional history obtained from friend does not reveal any complaints of fever, chills, cough, sick contacts, or medication changes. The patient seems to be independent of
IADLs at baseline and is able to take her medication and administer her nebulizer treatments without issue. Of note, she was hospitalized in June 2024 for similar acute on chronic hypercapnic respiratory failure with unclear trigger.
On arrival to the ED she was awake alert and oriented, however her mental status continued to deteriorate as she became somnolent and eventually unresponsive requiring intubation for airway protection. She was tachycardic on arrival into the 160s.
Blood gas revealed pH of 7.23, PCO2 of 108, PO2 of 153. Initial vent settings were 18 respiratory rate, 400 tidal volume, 5 PEEP, 40% FiO2. She was started on light sedation with fentanyl drip at 50mcg. CBC was unrevealing. Chemistry showed
hyperkalemia 5.6 and bicarb of 40.
Past Medical History
Past Medical History: Cancer (h/o Non-Hodgkin Lymphoma s/p Chemo/radiation), COPD and HTN
Past Surgical History: Other (Breast biopsy 1969, 2018, bone marrow biopsy 2007, right hip fracture 2007, partial right hip replacement 2013)
Social History
Tobacco: Former Smoker
Alcohol: None
Drug: None
Personal:
Living: With Family
Family History
Family History: Reviewed & Not Pertinent
Allergies / Home Medications
Allergies
Allergy/AdvReac Type Severity Reaction Status Date / Time
garlic AdvReac per Verified 09/14/24 12:18
patient
any food
with
garlic in
it caused
dizziness.
Home Medications
�Medication �Instructions �Recorded �Confirmed �Last Taken �Type
peg 400-propylene glycol 0.4 %-0.3 1 drp BOTH EYES DAILYPRN PRN DRY 11/10/21 09/14/24 06/09/24 History
% eye drops (Systane (propylene EYES
glycol))
budesonide 0.5 mg/2 mL suspension 0.5 mg inhalation R BID 11/25/21 09/14/24 06/09/24 History
for nebulization Lung/breathing issues
cholecalciferol (vitamin D3) 25 25 mcg PO DAILY Supplement 11/25/21 09/14/24 06/09/24 History
mcg (1,000 unit) tablet
ferrous sulfate 325 mg (65 mg 325 mg PO DAILY Supplement 11/25/21 09/14/24 06/09/24 History
iron) tablet
ipratropium 0.5 mg-albuterol 3 mg 3 ml inhalation R BID 08/07/22 09/14/24 06/09/24 History
(2.5 mg base)/3 mL nebulization Lung/breathing issues
soln
metoprolol tartrate 25 mg tablet 25 mg PO BID Blood Pressure 06/10/24 09/14/24 06/09/24 History
prednisone 5 mg tablet 10 mg PO DAILY 09/14/24 09/14/24 Unknown History
Review of Systems
-
Unable to Obtain full review of systems at this time due to: Patient Intubation
Vitals / Labs / Diagnostic Testing
Vital Signs
Temp Pulse Resp BP Pulse Ox
99.2 F 97 18 110/70 100
09/14/24 12:18 09/14/24 15:00 09/14/24 15:00 09/14/24 15:00 09/14/24 15:00
Lab Data
09/14/24 12:36
09/14/24 12:36
Laboratory Results
09/14/24
13:03
pH 7.23 L
pCO2 108 H*
pO2 153 H
HCO3 45.2 H*
O2 Delivery Level Not Reportable
Diagnostic Testing:
Physical Exam
-
HEENT: Normocephalic, Anicteric and Moist Mucous Membranes
Cardiovascular: S1/S2, Regular Rhythm and Other (Tachycardic)
Respiratory: Wheeze and Other (Mechanical breath sounds heard bilaterally, wheezing posteriorly)
GI: Soft, Non Distended, Non Tender and Normal Bowel Sounds
Neurology: Other (Sedated)
Skin: Warm and Dry
General: Other (Intubated, sedated)
Assessment
-
ASSESSMENT
84-year-old female with altered mental status and respiratory distress x 24 hours
Acute hypoxic/hypercapnic respiratory failure requiring intubation
Acute hypercapnic encephalopathy
NORIS
Acute hyperkalemia
Nonspecific ST segment changes
COPD with baseline O2 requirements
Pulmonary fibrosis
Pulmonary cachexia
Chronic bronchiectasis
Anemia, multifactorial
Essential hypertension
Osteoarthritis
History of non-Hodgkin lymphoma (chemo, radiation 2007)
History of breast cancer (lumpectomy, radiation in 2014)
PLAN
Acute on chronic hypoxic/hypercapnic respiratory failure with resultant encephalopathy
- Patient intubated for airway protection with initial vent settings as follows: RR 18, TV 400, PEEP 5, FiO2 40%
- Light sedation with Fentanyl/propofol ggt
- Initial ABG showing acidosis with pH 7.23, [id number], PO2 153, bicarb 40; baseline CO2 75-90
- Monitor ABGs and wean ventilation as able
NORIS with hyperkalemia
- Potassium on admission 5.6, creatinine 1.0 from baseline of 0.5
- Ca gluconate, D5, Insulin, target K 4.0 - 5.3
- Hoskins catheter
- IV fluid normal saline 75 cc/h
- Repeat BMP in the evening
NSTEMI
- ECG showing nonspecific ST changes in the lateral leads
- Prior echo from November 2021 shows LVEF of greater than 70%, stage I diastolic dysfunction, positive MacDonnell sign, moderate pulmonary hypertension PASP estimated at 58
- Repeat Echo pending
- Troponins 0.052, trend until peak
COPD with Acute exacerbation
Pulmonary fibrosis
Pulmonary cachexia
Chronic Bronchitis
- Chronic home O2 requirements 2-4L, wheezing on exam, on chronic prednisone 10 mg daily
- Will start Solu-Medrol 40 mg IV Q8
- Continue with DuoNeb twice daily, budesonide twice daily
- O2 saturation target of 88-92%
Anemia, multifactorial (SHIRIN vs. ACD)
- Takes ferrous sulfate 325 mg daily, hemoglobin on admission 11.6
- No signs of active bleeding
- Monitor CBC, transfuse if hemoglobin <7
Essential hypertension
- On Lopressor OCEAN EXPORT ACCOUNT MANAGER 25 mg twice daily
- will hold for now as pressures are soft
Target Euglycemia of 140-180 with LDISS
DVT PPx: Heparin SC Q8
GI PPx: IV Protonix QD
Code Status: Limited DNR (Intubation, but no CPR)
--- NOTE | 2024-09-14 15:24 | PTCARENOTE ---
Titrated Fentanyl to 75mcg and Propofol to 10mcg per Kailash He. Fentanyl 50mcg Bolus given @ 1527 and Propofol 40mg Bolus given @ 1528 by Kailash He. Will continue to monitor.
[2024-09-14 15:44] LABS: COVID-19 Antigen Negative (Negative)
--- NOTE | 2024-09-14 16:09 | CON.CAR ---
Consultation
Consultation Request
Date/Time Consultation Requested: 09/14/24 1555
Date/Time Consultation Performed: 09/14/24 1600
Requesting Provider: Dr. He
Performing Provider: Lucia JONES for Dr. Moran
Reason for Consultation: abnormal EKG
Medical History
-
Chief Complaint: decreased LOC and SOB
History of Present Illness:
84 y/o female with hx breast cancer, non Hodgkin lymphoma, COPD, hypertension who was found with decreased LOC and SOB and is now intubated. We are consulted for abnormal EKG with concern for ST elevations. However, previous EKG's including one from
2021 look similar and more consistent with early repolarization. Bedside echo done by Dr. Moran showed LV function NL.
Past Medical History
Past Medical History: Cancer, COPD and HTN
Social History
Tobacco: Former Smoker
Family History
Family History: Reviewed & Not Pertinent
Allergies / Home Medications
Allergy/AdvReac Type Severity Reaction Status Date / Time
garlic AdvReac per Verified 09/14/24 12:18
patient
any food
with
garlic in
it caused
dizziness.
�Medication �Instructions �Recorded �Confirmed �Type
peg 400-propylene glycol 0.4 %-0.3 1 drp BOTH EYES DAILYPRN PRN DRY 11/10/21 09/14/24 History
% eye drops (Systane (propylene EYES
glycol))
budesonide 0.5 mg/2 mL suspension 0.5 mg inhalation R BID 11/25/21 09/14/24 History
for nebulization Lung/breathing issues
cholecalciferol (vitamin D3) 25 25 mcg PO DAILY Supplement 11/25/21 09/14/24 History
mcg (1,000 unit) tablet
ferrous sulfate 325 mg (65 mg 325 mg PO DAILY Supplement 11/25/21 09/14/24 History
iron) tablet
ipratropium 0.5 mg-albuterol 3 mg 3 ml inhalation R BID 08/07/22 09/14/24 History
(2.5 mg base)/3 mL nebulization Lung/breathing issues
soln
metoprolol tartrate 25 mg tablet 25 mg PO BID Blood Pressure 06/10/24 09/14/24 History
prednisone 5 mg tablet 10 mg PO DAILY 09/14/24 09/14/24 History
Review of Systems
-
Unable to obtain full review of systems at this time due to: Patient Intubation
History Source: Other (per chart - SOB and decreased LOC)
Physical Exam
Vital Signs
Temp Pulse Resp BP Pulse Ox
99.2 F 123 27 98/58 100
09/14/24 12:18 09/14/24 16:00 09/14/24 16:00 09/14/24 15:50 09/14/24 15:50
Lab Results
09/14/24 12:36
09/14/24 12:36
Epz-H-Lrwfgfpukbd Pept 1070 pg/ml 09/14/24 12:36
Physical Exam
General: Well Developed
HEENT: Normocephalic and Anicteric
Respiratory: Rhonchi and Other (intubated)
Cardiac: Regular Rhythm (tachycardia )
Neuro: Other (sedated)
Psych: Calm
Impression / Plan
-
Acute on chronic hypoxic/hypercapnic respiratory failure:
-this diagnosis is threat to life
-currently intubated and sedated
-hx COPD on O2
-ICU management
Abnormal EKG:
-ST elevations noted (inferior and lateral). Bedside echo with normal LV. Obtain full echo today. ST changes reviewed with paper mill manager/open hearth door liner- most likely early repol. Additionally, has had previous EKG's that look similar. Of
note, we were consulted and EKG was concerning for inferior STEMI, but did not meet criteria. LV function normal at that time as noted. Does not seem to be ACS.
Abnormal troponin:
-trend to peak
-check echo
-suspect acute, non-ischemic myocardial injury in setting of respiratory failure/hypoxemia
HTN:
-some low BP's in ER
-improved s/p IVF
-monitor closely
Hyperkalemia:
-in for repeat lab
-management per primary team
Data Reviewed
-
EKG: Tracing Personally Visualized and interpreted (NSR with DARSHANA inferior and lateral consistent with early repol)
Radiology: Report Reviewed by me (CXR: Endotracheal tube tip projects over the lower thoracic trachea. Stable opacity within the lateral right upper lung, possible pleural thickening or loculated pleural effusion with adjacent atelectasis.)
Medical Tests (Nuc Med, Echo etc): Report Reviewed by me (Echo 11/09/21: LV small with hyperdynamic LV systolic function. EF 70+%. Stage I DD. Dilated RV with akinesis of the mid free wall, sparing the base and apex, consistent with positive
Rueda's sign. Moderate TR. Moderate pulmonary hypertension, PASP estimated at 58 mmHg.)
Labs: Labs Reviewed by me
[2024-09-14 16:19] LABS: APTT 25.3 Sec (23.4-35.0)
--- NOTE | 2024-09-14 16:25 | PTCARENOTE ---
Received pt from the ED intubated, monitored with Propofol & Fentanyl infusions via right wrist #20g protective catheter. She is unresponsive. Flaccid, PERRLA +2, Feet are red/maroon in color, blanchable, +3 edema with Doppler PT/DP signals.
Intermittent tremors noted. #7.5 ETT secures 22cm right lip. AC 18/400/.40/+5.Right brachial site with hematoma with blue ecchymosis. Sacrum with 8cm non blanchable area, skin barrier applied and silicone border foam dressing applied. Bilateral
heels red and blanchable. Right heel with old wound noted with white dry sloughed edges with skin slightly harder in that area. Bilateral shins with red ecchymosis scattered, U/E's with scattered ecchymosis. She is cachectic and chronically ill
appearing. Aspiration precautions maintained. Will continue to monitor. Discussed the plan of care with care team.
[2024-09-14 16:33] LABS: Troponin I 0.052 ng/ml
[2024-09-14] MEDS: DUONEB INH (16:49)
[2024-09-14 16:50] LABS: B.E. 12.5 mmol/L; HCO3 37.3 mmol/L (21-28); O2 Saturation % 99.9 % (94-98); PCO2 49 mmHg (32-35); PO2 172 mmHg (83-108); pH 7.49 (7.35-7.45)
[2024-09-14 17:04] LABS: Glucose - Point of Care 149 mg/dl (70-99)
[2024-09-14] MEDS: DEXTROSE 50% SYRINGE 25 GRAMS IV (17:12)
[2024-09-14] MEDS: NOVOLIN R 5 UNITS IV (17:13)
[2024-09-14] MEDS: CALCIUM GLUCONATE 1000 MG IV (17:19)
[2024-09-14] MEDS: HEPARIN 5000 UNITS SC ×2 (17:22→23:13)
[2024-09-14] MEDS: NSS 1000 IV (17:23)
[2024-09-14] MEDS: SOLU-MEDROL PF 40 MG IV ×2 (17:24→23:13)
--- NOTE | 2024-09-14 17:30 | PTCARENOTE ---
Alex at the bedside. He was just discharged from for broken arm after his final radiation treatment. He is aware of the plan of care. He was provided our contact information for updates. He will return in the morning.
[2024-09-14 17:57] LABS: Creatine Phosphokinase 44 U/L (30-135)
[2024-09-14 18:08] LABS: Glucose - Point of Care 204 mg/dl (70-99)
[2024-09-14 19:03] LABS: Glucose - Point of Care 149 mg/dl (70-99)
[2024-09-14] MEDS: NOVOLOG FLEXPEN-LOW RESISTANCE SC (19:09)
[2024-09-14] MEDS: DUONEB 3 ML INH (20:00)
[2024-09-14] MEDS: FLOVENT 110 MCG INHALER 4 PUFF INH (20:00)
--- NOTE | 2024-09-14 20:00 | PTCARENOTE ---
sonogram technician, pt intub/sedated, arouses to verbal, slightly agitated on awakening, attempts made to reorient. -commands at this time. SR HR 80s. B/L IV x 3 WNL- Fent/Prop/IVF infusing per work list. Sat 100% on MV Fi02 40%, tolerating. care
ongoing.
[2024-09-14] MEDS: DIPRIVAN 100 IV (20:08)
[2024-09-14 20:43] LABS: Blood Urea Nitrogen 48 mg/dl (7-17); Chloride 98 mmol/L (98-107); Estimated Creatinine Clearance 35 ml/min; Glucose 146 mg/dl (70-99); Potassium 4.3 mmol/L (3.5-5.1); Sodium 140 mmol/L (135-145); eGFR > 60.00
--- NOTE | 2024-09-14 21:20 | PTCARENOTE ---
pt ordered for Hoskins cath placement, unable to place due to anatomy, KFlahertyNP also to bedside to attempt. Urology c/s ordered.
[2024-09-14 21:23] LABS: Glucose - Point of Care 159 mg/dl (70-99)
[2024-09-14 21:30] LABS: Carbon Dioxide 32 mmol/L (22-30)
[2024-09-14 22:52] LABS: Troponin I 0.059 ng/ml
[2024-09-14] MEDS: NOVOLOG FLEXPEN-LOW RESISTANCE 1 UNITS SC (23:12)
[2024-09-14 23:22] LABS: Glucose - Point of Care 169 mg/dl (70-99)
[2024-09-15] VITALS (39 sets, daily range): BP systolic 97–168; BP diastolic 49–99; BMI 15.3
--- NOTE | 2024-09-15 | PTCARENOTE ---
no changes in assessment.
--- NOTE | 2024-09-15 02:20 | PTCARENOTE ---
pt with 3 brief episodes of HR up to high 140s, KFlahertyNP aware, am labs sent, 5mg IV lopressor x 1 per order. will monitor.
[2024-09-15] MEDS: LOPRESSOR 5 MG IV ×3 (02:21→23:16)
[2024-09-15 03:02] LABS: APTT 27.2 Sec (23.4-35.0); INR 0.93; PT 12.9 Sec (11.4-14.6)
[2024-09-15 03:14] LABS: Blood Urea Nitrogen 46 mg/dl (7-17); Calcium 8.7 mg/dl (8.4-10.2); Carbon Dioxide 37 mmol/L (22-30); Chloride 101 mmol/L (98-107); Estimated Creatinine Clearance 40 ml/min; Glucose 160 mg/dl (70-99); Magnesium 1.9 mg/dl (1.6-2.3); Phosphorus 1.6 mg/dl (2.5-4.5); Potassium 4.1 mmol/L (3.5-5.1); Sodium 141 mmol/L (135-145); eGFR > 60.00
[2024-09-15 03:18] LABS: % Basophils 0.1 % (0-2); % Immature Granulocytes 0.7 % (0-0.5); % Lymphocytes 3.9 % (20.5-51.1); % Monocytes 4.1 % (1.7-9.3); % Neutrophils 91.2 % (42.2-75.2); Absolute Immature Granulocytes 0.1 10^3/uL (0-0.05); Absolute Lymphocytes 0.3 10^3/uL (1.2-3.4); Absolute Monocytes 0.3 10^3/uL (0.1-0.6); Absolute Neutrophils 6.6 10^3/uL (1.4-6.5); Hematocrit 31.2 % (37.0-47.0); Hemoglobin 9.6 g/dL (12.0-16.0); Mean Corp Hgb Conc. 30.8 g/dL (33.0-37.0); Mean Corpuscular Hgb 31.4 pg (27.0-31.0); Mean Platelet Volume 9.8 fL (7.4-10.4); Nucleated Red Blood Cells % 0 %; Platelet Count 181 10^3/uL (130-400); Red Blood Cell Count 3.06 10^6/uL (4.20-5.40); Red Cell Dist. Width 12.7 % (11.5-14.5); White Blood Cell Count 7.3 10^3/uL (4.8-10.8)
--- NOTE | 2024-09-15 04:30 | PTCARENOTE ---
bladder scan 454- urology c/s this am. no further changes in assessment.
[2024-09-15] MEDS: SODIUM PHOSPHATE 255 MEQ IV (04:58)
[2024-09-15 05:47] LABS: B.E. 15.6 mmol/L; O2 Saturation % 97.7 % (94-98); PCO2 48 mmHg (32-35); PO2 129 mmHg (83-108); pH 7.53 (7.35-7.45)
[2024-09-15] MEDS: NSS 1000 IV (05:47)
[2024-09-15] MEDS: NOVOLOG FLEXPEN-LOW RESISTANCE 2 UNITS SC (05:47)
[2024-09-15 05:51] LABS: HCO3 40.1 mmol/L (21-28)
[2024-09-15 05:58] LABS: Glucose - Point of Care 205 mg/dl (70-99)
[2024-09-15] MEDS: FLOVENT 110 MCG INHALER 4 PUFF INH ×2 (07:15→19:34)
[2024-09-15] MEDS: DUONEB 3 ML INH ×4 (07:15→19:33)
--- NOTE | 2024-09-15 07:45 | W.PN.HOSP.TC ---
Today's Communication/Plan
-
Wean down ventilator as able
Reduce dose of steroids
Assessment / Plan
Assessment / Plan
Gen-sedated, intubated, shivering
HEENT-NC, AT, anicteric
Neck-supple
CV-reg, no M, +S1/S2
Lungs-clear B/L
Abd-soft, NT, ND
Ext-no edema
Musculoskeletal-no cyanosis, clubbing
Skin-warm and dry, bruising on both shins
Acute hypercapnic encephalopathy -presentation with decreased level of consciousness and now unresponsive. Etiology of hypercapnic encephalopathy likely due to COPD exacerbation. Unclear how compliant she was at home with nightly BiPAP. pCO2
improved to 48 on ABG this morning. Chronic compensated metabolic alkalosis noted. pH now alkalemic, 7.5.
Acute on chronic hypoxic/hypercapnic respiratory failure -intubated in the emergency room. Currently in ICU on the ventilator. Brewery Representative following.
2 view chest x-ray shows no significant change compared to prior. Possible chronic loculated right-sided pleural effusion or pleural thickening. Likely left apical pleural thickening.
Previously intubated twice in 2021, successfully extubated.
Hyperkalemia -treated on admission with calcium, dextrose, insulin IV. Potassium now normal.
COPD Gold stage IV -no wheezing for me in the emergency room but subsequently had wheezing for the pulmonary service and now on treatment for acute COPD exacerbation. Her dose of steroids is too high, currently on 40 mg IV Solu-Medrol every 8.
This is equivalent to 150 mg of prednisone daily. Standard dosing for COPD exacerbation is 40 to 50 mg prednisone daily. Will cut the dose in half.
She uses chronic prednisone 10 mg daily at home. The above dose of steroids is adequate for stress dosing as well.
Troponin elevation -suspect acute nonischemic myocardial injury due to critical illness, acute respiratory failure. No wall motion abnormalities on echocardiogram. Cardiology consulted.
Essential hypertension -stable.
Chronic anemia -hemoglobin at baseline.
History of right breast cancer -treated with lumpectomy, radiation 2014. Had recurrence with bleeding, status post hormonal therapy.
History of NHL -treated with radiation, chemo, completed 2007.
Radiation pneumonitis -chronic pleural thickening.
Chronic bronchiectasis
History of legionnaires pneumonia 1975 complicated by right pneumothorax requiring bilateral chest tube placement.
Chronic low back pain/vertebral fracture/osteoporosis
Pulmonary cachexia -BMI 14.
Limited DNR -no CPR but patient agreeable to intubation. Confirmed with .
Anticipated Discharge: > 48 hours
Subjective/Interval History
-
Date of Service: September 15, 2024
Patient seen and examined. Sedated, intubated in ICU.
Objective Data
-
Labs:
Laboratory Results
09/14/24 09/14/24 09/15/24
17:14 20:14 02:32
WBC 7.3
Hgb 9.6 L
Hct 31.2 L
Plt Count 181 D
PT 12.9
INR 0.93
APTT 27.2
HCO3
Sodium 140 141
Potassium Cancelled 4.3 4.1
Chloride 98 101
Carbon Dioxide 32 H 37 H
BUN 48 H 46 H
Creatinine 0.8 0.7
Glucose 146 H 160 H
Calcium 9.0 8.7
09/15/24
05:38
WBC
Hgb
Hct
Plt Count
PT
INR
APTT
HCO3 40.1 H*
Sodium
Potassium
Chloride
Carbon Dioxide
BUN
Creatinine
Glucose
Calcium
Vital Signs:
Vital Signs
Temp Pulse Resp BP Pulse Ox
97.6 F 60 16 158/65 100
09/15/24 07:00 09/15/24 07:20 09/15/24 07:20 09/15/24 06:00 09/15/24 07:20
I&O
09/14/24 09/15/24 09/16/24
06:59 06:59 06:59
Intake Total 1454.2 / 1454.2
Balance 1454.2 / 1454.2
Review of Systems
-
Unable to obtain full review of systems at this time due to: Acuity and Patient Intubation
--- NOTE | 2024-09-15 08:00 | PTCARENOTE ---
Received pt with eyes closed.Eyes open to verbal stimulation.Occasionally follows commands.+LYN noted.SR noted with occasional self limiting bursts of tachycardia.IVF,Propofol and Fentanyl gtts infusing.# 7.5 ETT to vent.Scattered coarse rhonchi
with inspiratory wheezing noted.Suctioned for moderate thick [place] secretions.POX98%SBT attempted with tachypnea and tachycardia noted.No BM.No urine output noted.Bladder scanned 547 ml.Awaiting urology for Hoskins insertion.Skin integrity as documented.
--- NOTE | 2024-09-15 08:17 | W.PN.CD ---
Today's Communication / Plan
-
Monitor tele
ECG stable no need for more troponins
Wean vent as able
Cont metop when able
No new cardiac recommendations; we will sign off pls call with questions.
Impression / Plan
-
Acute on chronic hypoxic/hypercapnic respiratory failure:
-this diagnosis is threat to life
-currently intubated and sedated
-hx COPD on O2
-ICU management
Abnormal EKG: known prior likely early repolarization
-stable similar to priors
- echo no new wall motion abnormality report below
Abnormal troponin: nonischemic myocardial injury
-suspect acute, non-ischemic myocardial injury in setting of respiratory failure/hypoxemia
HTN:
-some low BP's in ER
-improved s/p IVF
-monitor closely
Hyperkalemia:
-in for repeat lab
-management per primary team
SVT
- monitor cont metoprolol
Subjective: Intubated but awake this AM
Echo Sep 14 2024: CONCLUSIONS
Small LV with hyperdynamic systolic function and no regional wall motion
abnormalities.
LVEF is greater than 70% by visual estimation.
Normal right ventricular size and function.
No significant valvular disease.
Estimated pulmonary artery pressure of 41 mmHg assuming a right atrial pressure
of 8 mmHg.
Compared to prior from November 09, 2021, no significant change.
Physical Exam
Vital Signs/Labs
Vital Signs
Temp Pulse Resp BP Pulse Ox
97.6 F 60 16 158/65 100
09/15/24 07:00 09/15/24 07:20 09/15/24 07:20 09/15/24 06:00 09/15/24 07:20
09/14/24 09/15/24 09/16/24
06:59 06:59 06:59
Actual Weight 92 lb 2.452 oz
09/15/24 02:32
09/15/24 02:32
PT 12.9 Sec (11.4-14.6) 09/15/24 02:32
INR 0.93 09/15/24 02:32
APTT 27.2 Sec (23.4-35.0) 09/15/24 02:32
Magnesium 1.9 mg/dl (1.6-2.3) 09/15/24 02:32
09/14/24
12:36
Kdl-J-Qewgezkpknd Pept 1070
LAB Results
09/14/24 09/14/24 09/15/24
15:59 22:08 02:32
Troponin I 0.052 H* 0.059 H* 0.060 H*
Physical Exam
Constitutional: Other (intubated but awake)
EENT: Anicteric
Cardiovascular: Rhythm & rate is regular and Pedal edema present
Respiratory: Other (coarse breath sounds )
GI: Soft
Neuro/Psych: Alert (responds to name but intubated )
Data Reviewed
-
Date of Service: September 15, 2024
Medical Decision Making: Reviewed Test Results
EKG: Tracing Personally Visualized and interpreted (sr)
Echo: Tracing Personally Visualized and interpreted
Labs: Labs Reviewed by me
--- NOTE | 2024-09-15 08:31 | W.PN.INTV ---
Today's Communication / Plan
Recommendations
trend trops
start tube feeds w/ 6U AC and MDISS
c/t wean vent settings as able
Assessment
-
ASSESSMENT
84-year-old female with altered mental status and respiratory distress x 24 hours
Acute hypoxic/hypercapnic respiratory failure requiring intubation
Acute hypercapnic encephalopathy
NORIS
Acute hyperkalemia
Nonspecific ST segment changes
COPD with baseline O2 requirements
Pulmonary fibrosis
Pulmonary cachexia
Chronic bronchiectasis
Anemia, multifactorial
Essential hypertension
Osteoarthritis
History of non-Hodgkin lymphoma (chemo, radiation 2007)
History of breast cancer (lumpectomy, radiation in 2014)
PLAN
Acute on chronic hypoxic/hypercapnic respiratory failure with resultant encephalopathy
- Patient intubated for airway protection with initial vent settings as follows: RR 18, TV 400, PEEP 5, FiO2 40%
- Light sedation with Fentanyl/propofol ggt
- Initial ABG showing acidosis with pH 7.23, [id number], PO2 153, bicarb 40; baseline CO2 75-90
- failed SBT today, ABGs showing respiratory alkalosis with pH 7.53 and PCO2 of 48; will continue to wean as able
- Spoke with Esteban over the phone, GOC at this time is to continue to wean vent, though the patient does not wish to have tracheostomy
NORIS with hyperkalemia
- Potassium on admission 5.6, creatinine 1.0 from baseline of 0.5
- Ca gluconate, D5, Insulin, target K 4.0 - 5.3
- Hoskins catheter placed today
- IV fluid NS 75 cc/h
- art studio teacher downtrending, c/w IOs
Nonischemic Myocardial Injury
- ECG showing nonspecific ST changes in the lateral leads
- Prior echo from November 2021 shows LVEF of greater than 70%, stage I diastolic dysfunction, positive MacDonnell sign, moderate pulmonary hypertension PASP estimated at 58
- Repeat Echo pending
- Troponins remain elevated 0.06, c/t trend
COPD with Acute exacerbation
Pulmonary fibrosis
Pulmonary cachexia
Chronic Bronchitis
- Chronic home O2 requirements 2-4L, wheezing on exam, on chronic prednisone 10 mg daily
- C/w Solu-Medrol 40 mg IV Q8
- Continue with DuoNeb twice daily, budesonide twice daily
- O2 saturation target of 88-92%
Nutrition
- Will place Dobhoff and initiate tube feeding
- Add 6U short acting insulin AC
- Increased to MDISS and target blood glucose 140-180
Anemia, multifactorial (SHIRIN vs. ACD)
- Takes ferrous sulfate 325 mg daily, hemoglobin on admission 11.6
- No signs of active bleeding
- Monitor CBC, transfuse if hemoglobin <7
Essential hypertension
- On Lopressor CAREER GUIDANCE TECHNICIAN 25 mg twice daily
- start back on Lopressor 5mg IV BID w/ holding parameters for SBP <120, HR <65
DVT PPx: Heparin SC Q8
GI PPx: IV Protonix QD
Code Status: Limited DNR (Intubation, but no CPR)
Subjective Dataa
Subjective Data
Date of Service:
Date of Service: September 15, 2024
Chief Complaint: Assistant Toddler Teacher Follow Up
Subjective:
No acute events overnight. Patient failed spontaneous breathing trial this morning and remains intubated at vent settings 16 RR, 350, 5 PEEP, 40% FiO2, sedated on 25mcg Fentanyl and 10 of propofol.
Review of Systems
General: Unobtainable - Sedation
Genitourinary: Hoskins
Objective Data
Data Reviewed
Vital Signs / I&O / Oxygen:
Vital Signs
Temp Pulse Resp BP Pulse Ox
97.6 F 60 16 158/65 100
09/15/24 07:00 09/15/24 07:20 09/15/24 07:20 09/15/24 06:00 09/15/24 07:20
Intake and Output
09/14/24 09/15/24 09/16/24
06:59 06:59 06:59
Intake Total 1454.2 / 1454.2
Balance 1454.2 / 1454.2
SaO2 [A/C] 99
SaO2 100
Nasal Cannula flow liters per 4
minute
Physical Exam
General: Other (Sedated)
HEENT: Normocephalic, Anicteric and Moist Mucous Membranes
Cardiovascular: S1-S2 and Regular Rhythm
Respiratory: Other (Mechanical breath sounds with intermittent expiratory wheezing)
GI: Soft, Non Distended, Non Tender and Normal Bowel Sounds
Neurology: Other (Sedated, Intubated)
Skin: Warm and Dry
Labs/Micro/Reports
Lab Data
09/15/24 02:32
09/15/24 02:32
Laboratory Results
09/14/24 09/14/24 09/14/24
13:03 15:59 16:38
PT
INR
APTT 25.3
pH 7.23 L 7.49 H
pCO2 108 H* 49 H
pO2 153 H 172 H
HCO3 45.2 H* 37.3 H
O2 Delivery Level Not Reportable
09/15/24 09/15/24
02:32 05:38
PT 12.9
INR 0.93
APTT 27.2
pH 7.53 H
pCO2 48 H
pO2 129 H
HCO3 40.1 H*
O2 Delivery Level
[2024-09-15] MEDS: PROTONIX IV 40 MG IV (08:43)
[2024-09-15] MEDS: HEPARIN 5000 UNITS SC (08:43)
[2024-09-15] MEDS: NSS (PRESERVATIVE FREE) 10 ML IV (08:44)
[2024-09-15] MEDS: MIRALAX TUBE (08:44)
--- NOTE | 2024-09-15 09:23 | W.PN.UPDATE ---
Update Note
Progress Note Update
Urology asked to place dash due to difficult anatomy
Patient has significant vaginal atrophy with some difficulty visualizing urethra
A 16Fr coude catheter was placed without difficulty with clear yellow urine output
Okay to remove dash when no longer needed for critical care and accurate I/O monitoring
[2024-09-15] MEDS: SOLU-MEDROL PF 20 MG IV ×3 (10:00→23:15)
--- NOTE | 2024-09-15 10:00 | PTCARENOTE ---
Urology placed # 16 coude catheter with immediate yellow urine drainage 550 ml.Pt's friend Ronda Rowan at bedside.She will contact pt's so that he can speak to MD.Dr Avitia made aware.
[2024-09-15] MEDS: LOPRESSOR IV (11:32)
[2024-09-15 11:44] LABS: Glucose - Point of Care 165 mg/dl (70-99)
--- NOTE | 2024-09-15 12:00 | PTCARENOTE ---
Pt assessed.Pt occasionally will sit up spontaneously.Eyes open and she is attempting to communicate with her friend Ronda.Plan of care discussed with the patient and her friend.
[2024-09-15] MEDS: NOVOLOG FLEXPEN-MODERATE RESISTANCE 3 UNITS SC ×2 (12:31→19:01)
[2024-09-15] MEDS: NOVOLOG FLEXPEN-MODERATE RESISTANCE 1 UNITS SC ×2 (12:35→19:02)
[2024-09-15] MEDS: DIPRIVAN 100 IV (12:56)
[2024-09-15] MEDS: SUBLIMAZE 100 IV (12:57)
--- NOTE | 2024-09-15 13:32 | CM ---
Patient is currently intubated with Dobhoff, IV/Steroids, failed SBT this AM.
Initial assessment completed with good friend, Ronda Rowan and phone conversation between MD and . Patient lives with in a 2 story home plus basement with 1 step to enter. Bedroom and full bath are on the 2nd floor. Patient has and
uses a RW at all times. She does not drive. is her caregiver. She is on continuous O2 and Bipap @ HS for approximately 10 hours. No in-home services. No psychiatric hospitalizations. No service. is receiving treatment for
brain, lung and bone cancer. Discharge POC TBD based on medical progression.
[2024-09-15 13:42] LABS: Troponin I 0.052 ng/ml
[2024-09-15] MEDS: LOVENOX 30 MG SC (17:28)
[2024-09-15 19:11] LABS: Glucose - Point of Care 160 mg/dl (70-99)
--- NOTE | 2024-09-15 20:00 | PTCARENOTE ---
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 SR HR 80s. B/L IV x 3 WNL- Fent/Prop infusing per work list. Sat 100% on MV Fi02 40%, tolerating. care ongoing.
[2024-09-15] MEDS: SUBLIMAZE 50 MCG IV (23:07)
[2024-09-16] VITALS (26 sets, daily range): BP systolic 118–174; BP diastolic 56–106; BMI 15.4
--- NOTE | 2024-09-16 00:58 | PTCARENOTE ---
UO borderline- KFlahertyNP aware, maintenance IVF ordered, no further changes in assessment.
[2024-09-16] MEDS: NOVOLOG FLEXPEN-MODERATE RESISTANCE SC ×2 (01:04→06:07)
[2024-09-16] MEDS: NOVOLOG FLEXPEN 3 UNITS SC ×3 (01:04→12:08)
[2024-09-16] MEDS: NSS 1000 IV (01:05)
[2024-09-16 01:13] LABS: Glucose - Point of Care 141 mg/dl (70-99)
[2024-09-16] MEDS: DIPRIVAN 100 IV (04:27)
--- NOTE | 2024-09-16 04:30 | PTCARENOTE ---
no changes in assessment, CHG bath.
[2024-09-16 04:34] LABS: % Basophils 0.2 % (0-2); % Immature Granulocytes 0.4 % (0-0.5); % Lymphocytes 2.1 % (20.5-51.1); % Monocytes 4.2 % (1.7-9.3); % Neutrophils 93.1 % (42.2-75.2); Absolute Immature Granulocytes 0.1 10^3/uL (0-0.05); Absolute Lymphocytes 0.2 10^3/uL (1.2-3.4); Absolute Monocytes 0.5 10^3/uL (0.1-0.6); Absolute Neutrophils 10.9 10^3/uL (1.4-6.5); Hematocrit 29.3 % (37.0-47.0); Hemoglobin 9.5 g/dL (12.0-16.0); Mean Corp Hgb Conc. 32.4 g/dL (33.0-37.0); Mean Corpuscular Hgb 31.8 pg (27.0-31.0); Mean Platelet Volume 9.8 fL (7.4-10.4); Nucleated Red Blood Cells % 0 %; Platelet Count 170 10^3/uL (130-400); Red Blood Cell Count 2.99 10^6/uL (4.20-5.40); Red Cell Dist. Width 13.6 % (11.5-14.5); White Blood Cell Count 11.7 10^3/uL (4.8-10.8)
[2024-09-16 05:08] LABS: ALT (SGPT) 13 U/L (0-35); AST (SGOT) 28 U/L (14-36); Albumin 2.8 g/dl (3.5-5.0); Alkaline Phosphatase 49 U/L (38-126); Blood Urea Nitrogen 34 mg/dl (7-17); Calcium 8.2 mg/dl (8.4-10.2); Carbon Dioxide 35 mmol/L (22-30); Chloride 103 mmol/L (98-107); Direct Bilirubin 0.2 mg/dl (0.0-0.4); Estimated Creatinine Clearance 48 ml/min; Glucose 129 mg/dl (70-99); Magnesium 1.9 mg/dl (1.6-2.3); Phosphorus 2.7 mg/dl (2.5-4.5); Potassium 3.5 mmol/L (3.5-5.1); Sodium 140 mmol/L (135-145); Total Bilirubin 0.6 mg/dl (0.2-1.3); Total Protein 5.2 g/dl (6.3-8.2); eGFR > 60.00
[2024-09-16] MEDS: LOPRESSOR IV (06:05)
--- NOTE | 2024-09-16 07:00 | PTCARENOTE ---
report received from previous RN at change of shift. pt intubated and sedated on propofol and fentanyl. pt arouses to voice, follows some commands. SR on telemetry at rest heart rate 60-70s. pt tachycardic when aroused. pulses weakly palpable. +2
edema in lower extremities. pt tolerating ventilator AC 40%, TV 350, peep 5, rate 14. lung sounds coarse, rhonchi throughout. active bowel sounds. left nare hof at 60 cm, osmalite infusing at 20 ml/hr with 10 water flushes. dash draining clear
yellow urine. see worklist for full nursing assessment and interventions.
[2024-09-16] MEDS: DUONEB 3 ML INH ×4 (07:21→19:16)
[2024-09-16] MEDS: FLOVENT 110 MCG INHALER 4 PUFF INH (07:21)
[2024-09-16] MEDS: MIRALAX 17 GRAMS TUBE (07:27)
[2024-09-16] MEDS: SOLU-MEDROL PF 20 MG IV ×2 (07:27→16:20)
[2024-09-16] MEDS: PROTONIX IV 40 MG IV (07:28)
[2024-09-16] MEDS: NSS (PRESERVATIVE FREE) 10 ML IV (07:28)
[2024-09-16] MEDS: LOPRESSOR 5 MG IV ×2 (07:54→15:16)
--- NOTE | 2024-09-16 07:54 | PTCARENOTE ---
sedation off for spontaneous breathing trial- pt woke, able to follow commands appropriately. shortly after being off sedation pt became anxious with tachypnea and tachycardia heart rate 180-200s. resp at bedside, decision to hold of breathing trial
and placed back on sedation.
--- NOTE | 2024-09-16 08:32 | W.PN.INTV ---
Today's Communication / Plan
Recommendations
wean sedation from prop -- Precedex
repeat BMP/Mg at 4pm
Increase tube feeds to 30 cc/h
B12 level
Thiamine/folate supplementation
IV metoprolol to home dose p.o.
Assessment
-
ASSESSMENT
84-year-old female with altered mental status and respiratory distress x 24 hours
Acute hypoxic/hypercapnic respiratory failure requiring intubation
Acute hypercapnic encephalopathy
NORIS
Acute hyperkalemia
Nonspecific ST segment changes
COPD with baseline O2 requirements
Pulmonary fibrosis
Pulmonary cachexia
Chronic bronchiectasis
Anemia, multifactorial
Essential hypertension
Osteoarthritis
History of non-Hodgkin lymphoma (chemo, radiation 2007)
History of breast cancer (lumpectomy, radiation in 2014)
PLAN
Acute on chronic hypoxic/hypercapnic respiratory failure with resultant encephalopathy
- Patient intubated for airway protection with initial vent settings as follows: RR 18, TV 400, PEEP 5, FiO2 40%
- Light sedation with Fentanyl/propofol ggt
- Initial ABG showing acidosis with pH 7.23, [id number], PO2 153, bicarb 40; baseline CO2 75-90
- Current vent settings 14 RR, 350 TV, 5 PEEP, FiO2 40% -- wean to 300 TV, saturating 97%
- will transition to precedex from propofol and plan for vent wean with extubation to BiPAP
- Spoke with Esteban over the phone, GOC at this time is to continue to wean vent, though the patient does not wish to have tracheostomy
NORIS with hyperkalemia
- Potassium on admission 5.6, creatinine 1.0 from baseline of 0.5
- Ca gluconate, D5, Insulin, target K 4.0 - 5.3
- Hoskins catheter placed today
- IV fluid NS 80 cc/h -- stop IVF this afternoon, repeat q4pm BMP
- bottom sander back to baseline
- c/w IOs
Nonischemic Myocardial Injury
- ECG showing nonspecific ST changes in the lateral leads
- Prior echo from November 2021 shows LVEF of greater than 70%, stage I diastolic dysfunction, positive MacDonnell sign, moderate pulmonary hypertension PASP estimated at 58
- Troponins peaked
- Repeat echo showing left ventricular hyperdynamic systolic dysfunction with no regional wall motion abnormalities, LVEF >70%, elevated PASP of 41 mmHg
COPD with Acute exacerbation
Pulmonary fibrosis
Chronic Bronchitis
- Chronic home O2 requirements 2-4L, wheezing on exam, on chronic prednisone 10 mg daily
- Repeat CXR today -- no acute changes
- C/w Solu-Medrol 40 mg IV Q8 for today, then wean steroid starting tomorrow
- Continue with DuoNeb twice daily, budesonide twice daily
- O2 saturation target of 88-92%
Nutrition
Pulmonary Cachexia
- Dobhoff, on tube feeds -- increase tube feeds to 30cc/hr
- Begin PO thiamine/folate supplementation, check B12 level, monitor Phos/K for signs of refeeding syndrome
- Add 6U short acting insulin AC
- Increased to MDISS and target blood glucose 140-180
Anemia, multifactorial (SHIRIN vs. ACD)
- Takes ferrous sulfate 325 mg daily, hemoglobin on admission 11.6
- No signs of active bleeding
- Monitor CBC, transfuse if hemoglobin <7
Essential hypertension
- Change from 5mg Q6 IV Lopressor to home dose 25mg PO BID w/ holding parameters for SBP <120, HR <65
DVT PPx: Heparin SC Q8
GI PPx: IV Protonix QD
Code Status: Limited DNR (Intubation, but no CPR)
Subjective Dataa
Subjective Data
Date of Service:
Date of Service: September 16, 2024
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
Subjective:
Output via Hoskins 1100cc, net positive 530cc. She was weaned off sedation, awake, however she became tachycardic into the 200s and tachypneic. She was restarted on 50/30 of fentanyl and propofol. Vent settings are 14 RR, 350 TV, 5 PEEP, 40% FiO2 and
she is saturating 97%. She is on tube feeds at 20 cc/h.
Sedation had just been restarted when I saw her and she was able to answer some of my questions. I asked her if she felt comfortable taking her BiPAP at home without assistance, she said yes. I asked her if she had felt sick a couple days ago
prior to being in the hospital, she said no. I asked her if she is aware of any issues with her BiPAP machine, she said no.
Review of Systems
General: Other (No fevers, chills, bodily pain.)
HEENT: Other (No symptoms.)
Cardiopulmonary: Other (No chest pain. pleurisy, palpitations. )
GI: Other (No nausea, abdominal pain, bloating.)
Neuro: Other (No symptom)
Genitourinary: Hoskins
Objective Data
Data Reviewed
Vital Signs / I&O / Oxygen:
Vital Signs
Temp Pulse Resp BP Pulse Ox
98.5 F 86 18 143/70 98
09/16/24 07:41 09/16/24 08:00 09/16/24 08:00 09/16/24 08:00 09/16/24 08:00
Intake and Output
09/15/24 09/16/24 09/17/24
06:59 06:59 06:59
Intake Total 1454.2 / 1539.0 1765.4 / 1765.4
Output Total 1075 / 1075
Balance 1454.2 / 1539.0 690.4 / 690.4
SaO2 [A/C] 99
SaO2 98
Nasal Cannula flow liters per 4
minute
Physical Exam
General: Comfortable, Pain (None), T Max (100F) and Chills (None)
HEENT: Normocephalic, Anicteric and Moist Mucous Membranes
Cardiovascular: S1-S2, Regular Rhythm and Other (Tachycardic)
Respiratory: Other (Mechanical breath sounds. Bibasilar crackles.)
GI: Soft, Non Distended, Non Tender and Normal Bowel Sounds
Neurology: Awake, Alert and Tremors (None)
Skin: Warm and Dry
Labs/Micro/Reports
Lab Data
09/16/24 04:23
09/16/24 04:23
[2024-09-16] MEDS: SUBLIMAZE 50 MCG IV (09:12)
[2024-09-16] MEDS: LOPRESSOR 25 MG TUBE (10:47)
[2024-09-16] MEDS: KCL ELIXIR 20 MEQ TUBE (10:47)
[2024-09-16] MEDS: VITAMIN B1 100 MG TUBE (10:48)
[2024-09-16] MEDS: PRECEDEX 100 IV (10:48)
[2024-09-16] MEDS: NOVOLOG FLEXPEN-MODERATE RESISTANCE 1 UNITS SC (12:08)
[2024-09-16 12:19] LABS: Glucose - Point of Care 189 mg/dl (70-99)
--- NOTE | 2024-09-16 12:30 | PTCARENOTE ---
sedation weaned off- placed on SBT by resp therapist. tolerating well. SR heart rate in 70s. sat 98%. pt calm, resp rate 20s. ABG to be drawn in 20-30 minutes.
--- NOTE | 2024-09-16 12:32 | W.PN.HOSP.TC ---
Today's Communication/Plan
-
Ventilator weaning per installation technician
Assessment / Plan
Assessment / Plan
Gen-awake, intubated
HEENT-NC, AT, anicteric
Neck-supple
CV-reg, no M, +S1/S2
Lungs-clear B/L
Abd-soft, NT, ND
Ext-no edema
Musculoskeletal-no cyanosis, clubbing
Skin-warm and dry, bruising on both shins
Acute hypercapnic encephalopathy -presentation with decreased level of consciousness and now unresponsive. Etiology of hypercapnic encephalopathy likely due to COPD exacerbation. Unclear how compliant she was at home with nightly BiPAP.
Acute on chronic hypoxic/hypercapnic respiratory failure -intubated in the emergency room. Currently in ICU on the ventilator. Commercial Announcer following.
2 view chest x-ray shows no significant change compared to prior. Possible chronic loculated right-sided pleural effusion or pleural thickening. Likely left apical pleural thickening.
Previously intubated twice in 2021, successfully extubated.
Spontaneous breathing trials per intensive care service.
Tube feeds started by intensive care service.
Hyperkalemia -resolved.
COPD Gold stage IV -no wheezing for me in the emergency room but subsequently had wheezing for the pulmonary service and now on treatment for acute COPD exacerbation. Continue steroids per pulmonary.
She uses chronic prednisone 10 mg daily at home. The above dose of steroids is adequate for stress dosing as well.
Troponin elevation -suspect acute nonischemic myocardial injury due to critical illness, acute respiratory failure. No wall motion abnormalities on echocardiogram. Cardiology consulted.
Essential hypertension -stable.
Chronic anemia -hemoglobin at baseline.
History of right breast cancer -treated with lumpectomy, radiation 2014. Had recurrence with bleeding, status post hormonal therapy.
History of NHL -treated with radiation, chemo, completed 2007.
Radiation pneumonitis -chronic pleural thickening.
Chronic bronchiectasis
History of legionnaires pneumonia 1974 complicated by right pneumothorax requiring bilateral chest tube placement.
Chronic low back pain/vertebral fracture/osteoporosis
Pulmonary cachexia -BMI 14.
Limited DNR -no CPR but patient agreeable to intubation. Confirmed with .
Anticipated Discharge: > 48 hours
Subjective/Interval History
-
Date of Service: September 16, 2024
Patient seen and examined. Remains intubated but awake, following commands.
Objective Data
-
Labs:
Laboratory Results
09/16/24 09/16/24
04:23 16:00
WBC 11.7 H
Hgb 9.5 L
Hct 29.3 L
Plt Count 170
Sodium 140 Pending
Potassium 3.5 Pending
Chloride 103 Pending
Carbon Dioxide 35 H Pending
BUN 34 H Pending
Creatinine 0.5 L Pending
Glucose 129 H Pending
Calcium 8.2 L Pending
Total Bilirubin 0.6
AST 28
ALT 13
Alkaline Phosphatase 49
Vital Signs:
Vital Signs
Temp Pulse Resp BP Pulse Ox
98.5 F 65 14 140/63 98
09/16/24 07:41 09/16/24 12:11 09/16/24 12:11 09/16/24 12:00 09/16/24 12:13
I&O
09/15/24 09/16/24 09/17/24
06:59 06:59 06:59
Intake Total 1454.2 / 1539.0 1765.4 / 1886.4 727.5 / 727.5
Output Total 1075 / 1125 160 / 160
Balance 1454.2 / 1539.0 690.4 / 761.4 567.5 / 567.5
Review of Systems
-
Unable to obtain full review of systems at this time due to: Acuity and Patient Intubation
[2024-09-16 13:21] LABS: B.E. 10.5 mmol/L; HCO3 37.2 mmol/L (21-28); O2 Saturation % 68.8 % (94-98); PCO2 60 mmHg (32-35)
[2024-09-16 13:24] LABS: PO2 43 mmHg (83-108)
--- NOTE | 2024-09-16 14:00 | PTCARENOTE ---
pt extubated to bipap 10/5 with 6L oxygen. sat 96%. pt able to state name and answer questions appropriately prior to being placed on bipap.
--- NOTE | 2024-09-16 14:54 | CM ---
Addendum entered by Rafat Hastings 09/16/24 14:57:
IV Metoprolol, feeds increased, extubated to bipap w 6L O2.
Original Note:
Discharge POC: TBD based on medical progression.
--- NOTE | 2024-09-16 15:00 | PTCARENOTE ---
pt became anxious, tachycardic heart rate 180s, pt denies palpitations. dr notified, order received for dose of ativan, lopressor. restarted on low dose precedex at 0.2
[2024-09-16] MEDS: ATIVAN 0.5 MG IV (15:02)
[2024-09-16] MEDS: NSS (PRESERVATIVE FREE) 0.25 ML IV (15:03)
--- NOTE | 2024-09-16 15:30 | PTCARENOTE ---
pt now comfortable, HR 80s. sleeping but arouses easily to voice. taken off bipap and placed on 6L
--- NOTE | 2024-09-16 16:00 | PTCARENOTE ---
pt titrated down to 3L nasal cannula, sat 98%. pt AAOx2- slightly disoriented to time. pt tolerating ice chips and sips of water.
[2024-09-16 16:35] LABS: Blood Urea Nitrogen 31 mg/dl (7-17); Calcium 8.1 mg/dl (8.4-10.2); Carbon Dioxide 39 mmol/L (22-30); Chloride 103 mmol/L (98-107); Estimated Creatinine Clearance 41 ml/min; Glucose 127 mg/dl (70-99); Magnesium 1.9 mg/dl (1.6-2.3); Phosphorus 3.1 mg/dl (2.5-4.5); Potassium 4.1 mmol/L (3.5-5.1); Sodium 140 mmol/L (135-145); eGFR > 60.00
[2024-09-16] MEDS: LOVENOX 30 MG SC (17:44)
[2024-09-16 17:55] LABS: Glucose - Point of Care 129 mg/dl (70-99)
[2024-09-16] MEDS: MAG-TAB SR 84 MG PO (18:21)
[2024-09-16] MEDS: FLOVENT 110 MCG INHALER 2 PUFF INH (19:17)
[2024-09-16] MEDS: LOPRESSOR 25 MG PO (20:13)
--- NOTE | 2024-09-16 21:34 | PTCARENOTE ---
Handoff report received from off going RN. Patient received in bed AAOx3, confused, but able to make her needs known. disoriented to place. Patient believes that she is at [facility]. Occasionally removes her oxygen and pulse ox. SpO2 drops
from 96% to 77%. Reorientation provided. Plan of care for the shift reviewed with the patient. Bilateral hand tremors - baseline per the patient. NSR on the monitor. Tachypneic with RR 25-28. Audible BS. Pt at 25% of her jell-o. Small amount of
yellow urine noted on her dash catheter. Repositioned and turned the patient. Bed alarm in use. Call ochoa is within patient's reach.
[2024-09-17] VITALS (27 sets, daily range): BP systolic 94–171; BP diastolic 56–91; PULSE 2–98; O2SAT 96; BMI 15.6
[2024-09-17] MEDS: SOLU-MEDROL PF 20 MG IV ×4 (00:04→23:58)
[2024-09-17 00:19] LABS: Glucose - Point of Care 127 mg/dl (70-99)
--- NOTE | 2024-09-17 00:57 | PTCARENOTE ---
Patient reassessed. Remains with intermittent confusion. Redirection/orientation provided. CHG bath provided. Linens changed. Safety measures remain in place. Bed alarm in use. Call ochoa is within reach.
[2024-09-17] MEDS: LOPRESSOR 5 MG IV ×2 (02:13→06:05)
--- NOTE | 2024-09-17 02:15 | PTCARENOTE ---
Lopressor 5 mg IV administered for BP of 171/90.
[2024-09-17 04:32] LABS: Venous Blood Gas B.E. 15.5 mmol/L (-4 to +4); Venous Blood Gas HCO3 41.5 mmol/L (22-27); Venous Blood Gas O2 Sat % 99.9 %; Venous Blood Gas pCO2 57 mmHg (35-48); Venous Blood Gas pH 7.47 (7.32-7.43); Venous Blood Gas pO2 152 mmHg (30-50)
[2024-09-17 04:35] LABS: Hematocrit 33.5 % (37.0-47.0); Hemoglobin 10.6 g/dL (12.0-16.0); Mean Corp Hgb Conc. 31.6 g/dL (33.0-37.0); Mean Corpuscular Hgb 31.5 pg (27.0-31.0); Mean Corpuscular Volume 99.7 fL (81.0-99.0); Mean Platelet Volume 9.9 fL (7.4-10.4); Platelet Count 213 10^3/uL (130-400); Red Blood Cell Count 3.36 10^6/uL (4.20-5.40); Red Cell Dist. Width 13.6 % (11.5-14.5)
[2024-09-17 04:50] LABS: Blood Urea Nitrogen 26 mg/dl (7-17); Calcium 8.8 mg/dl (8.4-10.2); Carbon Dioxide 38 mmol/L (22-30); Chloride 101 mmol/L (98-107); Estimated Creatinine Clearance 48 ml/min; Glucose 119 mg/dl (70-99); Magnesium 2.1 mg/dl (1.6-2.3); Phosphorus 3.1 mg/dl (2.5-4.5); Potassium 4.3 mmol/L (3.5-5.1); Sodium 141 mmol/L (135-145); eGFR > 60.00
[2024-09-17] MEDS: APRESOLINE 10 MG IV (05:04)
--- NOTE | 2024-09-17 05:07 | PTCARENOTE ---
No changes from the previous assessment. Pt's awake.. Hydralazine 10 mg for SBP 162.
[2024-09-17] MEDS: ATIVAN 0.5 MG IV (05:44)
[2024-09-17 05:56] LABS: Folate 7.3 ng/ml (2.76-20); Vitamin B12 805 pg/ml (239-931)
[2024-09-17] MEDS: NSS (PRESERVATIVE FREE) 0.25 ML IV (06:03)
--- NOTE | 2024-09-17 06:23 | W.PN.UPDATE ---
Update Note
Progress Note Update
Patient in SVT HR 180s, EKG obtained, ativan 0.5mg IV and lopressor 5mg IV given. (patient did have SVT episode earlier in the evening responded to lopressor IV). HR broke to sinus 90s. Called Dr. Glynn, division human resources manager, continue lopressor PO dosing
and he will evaluate rhythm and medication dosages, if occurs again lopressor IV prn.
[2024-09-17 06:24] LABS: Glucose - Point of Care 142 mg/dl (70-99)
--- NOTE | 2024-09-17 06:36 | PTCARENOTE ---
[id number]: Patient is SVT on the monitor with HR in the 180s. Pt asked for bipap to be removed as it's 'making me not breathing. I'm anxious.' Patient denies Chest pain or any other pain.ATMOSPHERIC PHYSICS PROFESSOR aware. EKG completed.. Patient converse with staff and
states that her heart races when she thinks about the 'big tube that was in my mouth.' The patient also states that her heart races when she gets anxious. Ativan 0.5 mg IV and Lopressor 5 mg IV administered.he patienttolerated well. HR is now
100-105. Pt remains otherwise awake and alert.
[2024-09-17] MEDS: DUONEB 3 ML INH ×4 (07:18→19:22)
[2024-09-17] MEDS: FLOVENT 110 MCG INHALER 2 PUFF INH (07:19)
--- NOTE | 2024-09-17 07:24 | W.PN.HOSP.TC ---
Today's Communication/Plan
-
Cardiology follow-up
Metoprolol
PT/OT
Transition to nasal cannula
Assessment / Plan
Assessment / Plan
Gen-awake, alert, NAD
HEENT-NC, AT, anicteric, BiPAP mask on
Neck-supple
CV-reg, no M, +S1/S2
Lungs-clear B/L
Abd-soft, NT, ND
Ext-no edema
Musculoskeletal-no cyanosis, clubbing
Skin-warm and dry, bruising on both shins
Acute hypercapnic encephalopathy -presentation with decreased level of consciousness and now unresponsive. Etiology of hypercapnic encephalopathy likely due to COPD exacerbation. Unclear how compliant she was at home with nightly BiPAP.
Acute on chronic hypoxic/hypercapnic respiratory failure -intubated in the emergency room. Extubated 09/16 and transitioned to BiPAP. Transition to nasal cannula today.
2 view chest x-ray shows no significant change compared to prior. Possible chronic loculated right-sided pleural effusion or pleural thickening. Likely left apical pleural thickening.
Previously intubated twice in 2021, successfully extubated.
ABG yesterday during spontaneous breathing trial showed pCO2 of 60 which is close to her baseline. pO2 only 43.
SVT -treated with IV Lopressor. Continue oral Lopressor. Cardiology asked to revisit today.
Hyperkalemia -resolved.
COPD Gold stage IV -no wheezing for me in the emergency room but subsequently had wheezing for the pulmonary service and now on treatment for acute COPD exacerbation. Continue steroids per pulmonary.
She uses chronic prednisone 10 mg daily at home. The above dose of steroids is adequate for stress dosing as well.
Troponin elevation -suspect acute nonischemic myocardial injury due to critical illness, acute respiratory failure. No wall motion abnormalities on echocardiogram. Cardiology consulted.
Leukocytosis -suspect due to steroids. Afebrile. Looks nontoxic. Monitor for now.
Essential hypertension -stable.
Chronic anemia -hemoglobin at baseline.
History of right breast cancer -treated with lumpectomy, radiation 2014. Had recurrence with bleeding, status post hormonal therapy.
History of NHL -treated with radiation, chemo, completed 2007.
Radiation pneumonitis -chronic pleural thickening.
Chronic bronchiectasis
History of legionnaires pneumonia 1974 complicated by right pneumothorax requiring bilateral chest tube placement.
Chronic low back pain/vertebral fracture/osteoporosis
Pulmonary cachexia -BMI 14.
Limited DNR -no CPR but patient agreeable to intubation. Confirmed with .
PT/OT
Anticipated Discharge: > 48 hours
Subjective/Interval History
-
Date of Service: September 17, 2024
Patient seen and examined. No complaints.
Objective Data
-
Labs:
Laboratory Results
09/17/24
04:08
WBC 17.0 H
Hgb 10.6 L
Hct 33.5 L
Plt Count 213 D
Sodium 141
Potassium 4.3
Chloride 101
Carbon Dioxide 38 H
BUN 26 H
Creatinine 0.6
Glucose 119 H
Calcium 8.8
Vital Signs:
Vital Signs
Temp Pulse Resp BP Pulse Ox
97.9 F 104 22 94/56 92
09/17/24 00:11 09/17/24 07:22 09/17/24 07:22 09/17/24 06:05 09/17/24 07:22
I&O
09/16/24 09/17/24 09/18/24
06:59 06:59 06:59
Intake Total 1765.4 / 1886.4 1161.7 / 1161.7
Output Total 1075 / 1125 1100 / 1100
Balance 690.4 / 761.4 61.7 / 61.7
Review of Systems
-
History Source: Patient
All other systems: Reviewed and negative
[2024-09-17] MEDS: NSS (PRESERVATIVE FREE) 10 ML IV (07:34)
[2024-09-17] MEDS: PROTONIX IV 40 MG IV (07:34)
[2024-09-17] MEDS: VITAMIN B1 100 MG PO (07:35)
[2024-09-17] MEDS: LOPRESSOR 25 MG PO (07:35)
[2024-09-17] MEDS: MIRALAX 17 GRAMS PO (07:35)
--- NOTE | 2024-09-17 08:15 | W.PN.INTV ---
Today's Communication / Plan
Recommendations
Change Flovent to budesonide and continue DuoNebs
Start slow prednisone taper tomorrow with eventual transition back to her home dose of 5 mg BID
Up OOB as tolerated
PT/OT
Given that she is drowsy, cautiously continue with regular diet and ELEMENTARY EDUCATION TUTOR consulted today
Beta-martha increased by cardiology given episodes of SVT overnight
Continue to trend blood gas to assure pH + pCO2 remained stable
Continue supplemental oxygen maintaining SpO2 88-95%; check ambulatory pulse oximetry prior to discharge
Patient is stable for downgrade out of ICU to IMU. Needs to continue with BiPAP during the day during naps as well as with sleep. Encouraged to bring in the patient's machine from home. Until then, continue with hospital machine on 10
cmH2O (of note, patient's home settings are 15/5 cmH2O). Pulmonary service will continue to follow along.
Assessment
-
Impression:
#Acute on chronic hypoxic/hypercapnic now requiring mechanical ventilation (intubated 09/14/2024, extubated 09/16/2024)
#AMS due to CO2 narcosis - AMS now resolved
#NORIS (baseline Cr 0.4)
#Hyperglycemia (HbA1C: 6.2 on 06/12/2024) - now euglycemic
#Elevated troponin - suspect type II NH as echo done in ER showed no WMA; EKG changes with ST-elevations in infero-lateral leads seen in ER
#Chronic macrocytic anemia
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
#Pulmonary fibrosis with chronic right-sided pleural thickening most prominent on RUL with Hx of XRT (2007 for NHL, 2017 for breast cancer)
#Severe restrictive lung defect (spirometry from 09/2022 showed a post-BD FVC of 0.83L/30% predicted)
#Physical deconditioning (mainly wheelchair bound)
Plan:
- Patient p/w unresponsiveness with SOB and found to be acutely hypercapnic - of note, her baseline pCO2 is 70-80
- Patient was extubated to BiPAP yesterday and is doing well on 4 L/min nasal cannula, saturating 93% and breathing comfortable
- Of note, she wears BiPAP 15/5cmH2O at home and is compliant, which was confirmed by the
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
- Continue systemic steroids with Solumedrol - she is on prednisone 5mg BID at home per Dr. Vitale
- Solu-Medrol lowered to 20 mg IV q8hr on 09/15 from 40mg IV q8hr per hospitalist --> tomorrow will start prednisone taper, starting at 40 mg and reduce by 10 mg every third day until back to her home dose
- Maintain euglycemia while on high dose steroids; goal BG 140-180mg/dL
- Keep SpO2 88-95%
- Cardiology consulted due to ST changes seen on EKG done in ER
- Reportedly these changes are not new
- No need for heparin gtt as per Dr. Moran
- Echo showed LVEF >70% with normal RV size/function with no significant valvular disease and PASP 41 mmHg; no significant changes compared to prior echo from November 2021
- Cardiology raised metoprolol to 50mg BID as she continues to have episodes of SVT
- Despite her leukocytosis, she remains afebrile and is nontoxic-appearing. Continue to trend WBC + temperature curve; monitor off on antibiotics for now
- Maintain MAP>65
- Renally dose all meds; trend UOP and sCr
- Trend H/H and transfuse if needed to keep Hb>7g/dL; keep plt>20k, unless there is concern for bleeding then keep plt>50k
- Regular diet; given her drowsiness, I will consult ELEMENTARY EDUCATION TUTOR to evaluate her risk of aspiration
- Monitor for refeeding syndrome --> trend BMP, magnesium and phosphorus levels; continue thiamine; folate + vitamin B12 levels are WNL
- PT/OT - she is mainly wheelchair bound and physically deconditioned
- DVT ppx: Lovenox
Code status: No CPR, ok for intubation --> this was confirmed again on 09/15 via the who I spoke to over the phone along with the family friend and the resident, Dr. Galaviz. Confirmed again with the on 09/16, whom I spoke to at
bedside.
Guarded prognosis. Last hospitalized for acute hypoxic/hypercapnic respiratory failure from 06/10 - 06/14/2024.
Of note, pt follows with us in the office. She has follow up with Dr. Vitale on 12/13/2024. Depending if she survives this hospitalization, we will need to move this appt up.
Patient is stable for downgrade out of ICU to IMU. Needs to continue with BiPAP during the day during naps as well as with sleep. Encouraged to bring in the patient's machine from home. Until then, continue with hospital machine on 02/05
cmH2O (of note, patient's home settings are 15/5 cmH2O).
Pulmonary service will continue following along.
Total time spent today was 58 minutes for this encounter. Time includes reviewing laboratory test/imaging results, reviewing pertinent medical records, obtaining and reviewing medical history, performing an appropriate exam, ordering medications,
tests and procedures. Time also includes documentation of this encounter, coordinating patient care and communicating with other healthcare professionals. Total time does not include separately billed tests performed on this date of service.
Subjective Dataa
Subjective Data
Date of Service:
Date of Service: September 17, 2024
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
Subjective:
Patient seen and evaluated today at bedside. Went into SVT overnight. Currently heart rate 95, BP 131/91 and saturating 93% on 4 L/min nasal cannula. She is sleepy initially refused BiPAP overnight, then was okay wearing it at 10/5, which was
bled with 7 L/min. She says at home she wears her BiPAP throughout the day, usually 12 hours total per day, as she takes naps during the day. She currently denies chest pain, SOB, JASON, nausea, fevers or chills.
Review of Systems
General: Other (Negative unless mentioned above)
Objective Data
Data Reviewed
Vital Signs / I&O / Oxygen:
Vital Signs
Temp Pulse Resp BP Pulse Ox
98.1 F 108 32 130/69 96
09/17/24 08:00 09/17/24 08:00 09/17/24 08:00 09/17/24 08:00 09/17/24 08:00
Intake and Output
09/16/24 09/17/24 09/18/24
06:59 06:59 06:59
Intake Total 1765.4 / 1886.4 1161.7 / 1161.7
Output Total 1075 / 1125 1100 / 1100
Balance 690.4 / 761.4 61.7 / 61.7
SaO2 [A/C] 99
SaO2 96
Nasal Cannula flow liters per 3
minute
Physical Exam
General: Respiratory Distress (negative), Comfortable, Pain (None), Chills (None) and Sweats (negative)
HEENT: Normocephalic, Anicteric and Moist Mucous Membranes
Cardiovascular: S1-S2, Regular Rhythm and Other (Tachycardic)
Respiratory: Wheeze (negative), Crackles (Custer bilaterally in the posterior lung dc and right side on anterior lung field), Rhonchi (Bilaterally on posterior lung dc), Non-Labored Respirations and Stridor (negative)
GI: Soft, Non Distended, Non Tender and Normal Bowel Sounds
Neurology: AO x 3, Tremors (None) and Other (Sleepy but easily arousable and answering questions appropriately)
Skin: Warm and Dry
Labs/Micro/Reports
Lab Data
09/17/24 04:08
09/17/24 04:08
Laboratory Results
09/16/24
13:07
pH 7.40
pCO2 60 H
pO2 43 L*
HCO3 37.2 H
O2 Delivery Level
--- NOTE | 2024-09-17 11:21 | W.PN.CD ---
Addendum entered and electronically signed by Madeleine Glynn MD 09/17/24 12:14:
Patient was seen and evaluated personally. I agree with the documentation and plan as noted by resident's note below.
Briefly, 84-year-old woman with acute on chronic hypoxic respiratory failure, with history of hypertension hypokalemia and non-MT troponin leak was noted to have repeated episodes of sustained tachycardia. The tachycardia responded to IV
metoprolol. Patient is started on 25 mg of metoprolol twice a day. Patient had at least 2 sustained episodes of tachycardia. The tachycardia was reviewed personally. EKG and telemetry was reviewed. Tachycardia is consistent with atrial
tachycardia with 2-1 AV conduction versus atypical atrial flutter.
A. tach response to beta-blockers and would increase metoprolol to 50 mg twice a day. Continue using as needed IV metoprolol in case there is recurrence of atrial tachycardia.
No need for chronic anticoagulation therapy just yet.
Original Note:
Documented by User: Ju Jurado MD, Resident 09/17/24 11:50
Today's Communication / Plan
-
Increase metoprolol tartrate to 50mg BID.
PRN IV lopressor
Impression / Plan
-
Acute on chronic hypoxic/hypercapnic respiratory failure:
-hx COPD on chronic home O2, and nightly bipap
-successfully weaned off ventilatory, currently on 3L NC
Abnormal EKG: known prior likely early repolarization
-stable similar to priors
-echo with no new wall motion abnormality
Abnormal troponin: nonischemic myocardial injury
-Trop peak 0.06. 2/2acute respiratory failure
SVT
-Telemetry reviewed. Runs of narrow complex SVT noted on telemetry. Likely AVNRT. Resolved with 5mg Lopressor IV
- Will increase metoprolol tartrate to 50mg BID
- PRN IV lopressor
- Monitor closely
HTN:
-Stable. Monitor with increased metoprolol dosing
Hyperkalemia:
-Resolved
Subjective: reports usual baseline SOB. No chest pain
Echo Sep 14 2024: CONCLUSIONS
Small LV with hyperdynamic systolic function and no regional wall motion
abnormalities.
LVEF is greater than 70% by visual estimation.
Normal right ventricular size and function.
No significant valvular disease.
Estimated pulmonary artery pressure of 41 mmHg assuming a right atrial pressure
of 8 mmHg.
Compared to prior from November 09, 2021, no significant change.
Physical Exam
Vital Signs/Labs
Vital Signs
Temp Pulse Resp BP Pulse Ox
98.1 F 79 26 130/69 95
09/17/24 08:00 09/17/24 11:20 09/17/24 11:20 09/17/24 08:00 09/17/24 11:20
09/16/24 09/17/24 09/18/24
06:59 06:59 06:59
Actual Weight 41.9 kg 42.5 kg
09/17/24 04:08
09/17/24 04:08
PT 12.9 Sec (11.4-14.6) 09/15/24 02:32
INR 0.93 09/15/24 02:32
APTT 27.2 Sec (23.4-35.0) 09/15/24 02:32
Magnesium 2.1 mg/dl (1.6-2.3) 09/17/24 04:08
09/14/24
12:36
Qud-W-Knmhkzhigni Pept 1070
LAB Results
09/14/24 09/14/24 09/15/24
15:59 22:08 02:32
Troponin I 0.052 H* 0.059 H* 0.060 H*
09/15/24 09/15/24
13:13 18:15
Troponin I 0.052 H* Cancelled
Physical Exam
Constitutional: Other (appears in some respiratory distress)
EENT: Anicteric and Moist mucous membranes
Cardiovascular: Rhythm & rate is regular, Systolic murmur absent, Diastolic murmur absent, Pedal edema present (1+) and Other (split S2)
Respiratory: Wheeze Absent, Crackles Absent, Labored respirations and Rhonchi Present (diffuse)
GI: Soft, Distention absent and Non tender
Neuro/Psych: Alert and Oriented
Data Reviewed
-
Date of Service: September 17, 2024

Documented by User: Madeleine Glynn MD 09/17/24 12:11
Impression / Plan
-
Acute on chronic hypoxic/hypercapnic respiratory failure:
-hx COPD on chronic home O2, and nightly bipap
-successfully weaned off ventilatory, currently on 3L NC
Abnormal EKG: known prior likely early repolarization
-stable similar to priors
-echo with no new wall motion abnormality
Abnormal troponin: nonischemic myocardial injury
-Trop peak 0.06. 2/2acute respiratory failure
SVT
-Telemetry reviewed. Runs of narrow complex SVT noted on telemetry. Likely AT with possibility of AVNRT. Resolved with 5mg Lopressor IV
- Will increase metoprolol tartrate to 50mg BID
- PRN IV lopressor
- Monitor closely
HTN:
-Stable. Monitor with increased metoprolol dosing
Hyperkalemia:
-Resolved
Subjective: reports usual baseline SOB. No chest pain
Echo Sep 14 2024: CONCLUSIONS
Small LV with hyperdynamic systolic function and no regional wall motion
abnormalities.
LVEF is greater than 70% by visual estimation.
Normal right ventricular size and function.
No significant valvular disease.
Estimated pulmonary artery pressure of 41 mmHg assuming a right atrial pressure
of 8 mmHg.
Compared to prior from November 09, 2021, no significant change.
--- NOTE | 2024-09-17 12:39 | PTCARENOTE ---
Pt OOB in chair for 2hrs. NELSON. SpO2 97% on 3L. Max assist back to bed. Unable to stand up straight on her own. Now resting in bed. BiPAP on. tachypneic at rest. Lungs course throughout. Poor appetite. Clear yellow urine via dash. All
other assessments unchanged.
[2024-09-17 14:01] LABS: Glucose - Point of Care 111 mg/dl (70-99)
--- NOTE | 2024-09-17 14:39 | CM ---
CM following re: discharge planning.
Reviewed pt's chart, met with pt.
PT and OT evaluation noted - SNF level of care recommended. Per RN pt's visitor came earlier and stated that family put money down at [facility] for further move with and they requested pt goes to [facility] for a short term rehab.
A referral to [facility] made.
D/C plan: [facility]
CM will follow to assist pt with discharge to [facility].
--- NOTE | 2024-09-17 15:01 | PTOTSP ---
Speech Pathology
Clinical Swallow Evaluation
84F with admission for acute respiratory failure, intubated from 09/14-09/16, p/w s/s concerning for a mild oropharyngeal dysphagia. Hoarse vocal quality. Some throat clearing with thin liquids this date. Aspiration risk is increased 2/2 current
changes in vocal quality post intubation and PMH significant for COPD, Radiation pneumonitis, Bronchiectasis, and chronic respiratory failure (uses BiPAP 11 hours at night to sleep).
Recommend:
1. Continue with regular textures, thin liquids
2. Meds as best tolerated
3. Strategies: small bites, SINGLE sips, slow rate, PARTIAL feeding assistance as needed
4. TRIGONOMETRY TEACHER service to follow up to assess diet level tolerance
[2024-09-17 18:00] LABS: Glucose - Point of Care 191 mg/dl (70-99)
[2024-09-17] MEDS: LOVENOX 30 MG SC (18:07)
[2024-09-17] MEDS: NOVOLOG FLEXPEN-LOW RESISTANCE 1 UNITS SC (18:07)
[2024-09-17] MEDS: PULMICORT 0.5 MG INH (19:22)
[2024-09-17] MEDS: LOPRESSOR 50 MG PO (20:05)
--- NOTE | 2024-09-17 20:33 | PTCARENOTE ---
Received patient in bed AAOx3 and forgetful. MAEx4. NSR-Sinus tachy on the monitor with HR fluctuating between 90-105. Palpable pulses throughout. The patient's feet are cool and red/ purple. Bounding pulses to DP. SpO2 at 97% on 4L/o2 nc. +BS.
Medication administered with applesauce. Bed alarm in use. Call ochoa is within reach. Safety measures maintained.
[2024-09-17 21:37] LABS: Glucose - Point of Care 245 mg/dl (70-99)
[2024-09-17] MEDS: NOVOLOG FLEXPEN 4 UNITS SC (21:56)
[2024-09-18] VITALS (30 sets, daily range): BP systolic 123–163; BP diastolic 64–84; PULSE 2–110; O2SAT 96; BMI 15.2
--- NOTE | 2024-09-18 00:01 | PTCARENOTE ---
Reassessed patient. On bipap 10/5 on 5L O2. NSR on the monitor. arouses to verbal commands.. tachypneic with RR 33. Safety measures remain.
[2024-09-18] MEDS: APRESOLINE 10 MG IV (04:17)
[2024-09-18 04:20] LABS: Blood Urea Nitrogen 31 mg/dl (7-17); Carbon Dioxide 38 mmol/L (22-30); Chloride 101 mmol/L (98-107); Estimated Creatinine Clearance 49 ml/min; Glucose 100 mg/dl (70-99); Magnesium 2.2 mg/dl (1.6-2.3); Phosphorus 3.3 mg/dl (2.5-4.5); Potassium 4.5 mmol/L (3.5-5.1); Sodium 139 mmol/L (135-145); eGFR > 60.00
[2024-09-18] MEDS: LOPRESSOR 5 MG IV (05:36)
--- NOTE | 2024-09-18 05:38 | PTCARENOTE ---
Lopressor 5 mg Iv administered for HR 148-160s.
--- NOTE | 2024-09-18 07:18 | PTCARENOTE ---
Girish Slaughter MD made aware regarding patient declining PrBc.
[2024-09-18] MEDS: PULMICORT 0.5 MG INH ×2 (07:45→19:26)
[2024-09-18] MEDS: DUONEB 3 ML INH ×4 (07:45→19:26)
[2024-09-18] MEDS: NOVOLOG FLEXPEN-LOW RESISTANCE SC ×2 (08:09→18:09)
[2024-09-18] MEDS: VITAMIN B1 100 MG PO (08:23)
[2024-09-18] MEDS: LOPRESSOR 50 MG PO ×2 (08:23→20:16)
[2024-09-18] MEDS: DELTASONE 40 MG PO (08:24)
[2024-09-18] MEDS: MIRALAX PO (08:24)
[2024-09-18 08:30] LABS: Venous Blood Gas B.E. 14.7 mmol/L (-4 to +4); Venous Blood Gas O2 Sat % 99.4 %; Venous Blood Gas pCO2 36 mmHg (35-48); Venous Blood Gas pO2 193 mmHg (30-50)
--- NOTE | 2024-09-18 08:32 | W.PN.HOSP.TC ---
Today's Communication/Plan
-
Add azithromycin
Continue PT/OT
Assessment / Plan
Assessment / Plan
Gen-awake, alert, NAD
HEENT-NC, AT, anicteric, BiPAP mask on
Neck-supple
CV-reg, no M, +S1/S2
Lungs-Rales and rhonchi bilaterally
Abd-soft, NT, ND
Ext-no edema
Musculoskeletal-no cyanosis, clubbing
Skin-warm and dry, bruising on both shins
Acute hypercapnic encephalopathy -presentation with decreased level of consciousness and now unresponsive. Etiology of hypercapnic encephalopathy likely due to COPD exacerbation. Unclear how compliant she was at home with nightly BiPAP.
Acute on chronic hypoxic/hypercapnic respiratory failure -intubated in the emergency room. Extubated 09/16. Currently stable on 5 L nasal cannula. Continue BiPAP at nighttime and when napping. This is her baseline.
2 view chest x-ray shows no significant change compared to prior. Possible chronic loculated right-sided pleural effusion or pleural thickening. Likely left apical pleural thickening.
Previously intubated twice in 2021, successfully extubated.
ABG yesterday during spontaneous breathing trial showed pCO2 of 60 which is close to her baseline. pO2 only 43.
Atrial tachycardia -treated with IV Lopressor. Continue oral Lopressor. Cardiology following.
Hyperkalemia -resolved.
Acute COPD exacerbation -baseline Gold stage IV COPD. Continue inhalers, steroids. Add azithromycin. Does have a productive cough now.
Troponin elevation -suspect acute nonischemic myocardial injury due to critical illness, acute respiratory failure. No wall motion abnormalities on echocardiogram.
Leukocytosis -suspect due to steroids. Afebrile. Looks nontoxic. Monitor for now.
Essential hypertension -stable.
Chronic anemia -hemoglobin at baseline.
History of right breast cancer -treated with lumpectomy, radiation 2014. Had recurrence with bleeding, status post hormonal therapy.
History of NHL -treated with radiation, chemo, completed 2007.
Radiation pneumonitis -chronic pleural thickening.
Chronic bronchiectasis
History of legionnaires pneumonia 1975 complicated by right pneumothorax requiring bilateral chest tube placement.
Chronic low back pain/vertebral fracture/osteoporosis
Pulmonary cachexia -BMI 14.
Limited DNR -no CPR but patient agreeable to intubation. Confirmed with .
Dispo -anticipate discharge to SNF.
Anticipated Discharge: 24 - 48 hours
Subjective/Interval History
-
Date of Service: September 18, 2024
Patient seen and examined. Shortness of breath is stable, at her baseline. Started with a mildly productive cough today. Denies coughing or wheezing prior to admission.
Objective Data
-
Labs:
Laboratory Results
09/18/24 09/18/24
03:41 06:00
WBC Pending
Hgb Pending
Hct Pending
Plt Count Pending
Sodium 139
Potassium 4.5
Chloride 101
Carbon Dioxide 38 H
BUN 31 H
Creatinine 0.6
Glucose 100 H
Calcium 9.0
Vital Signs:
Vital Signs
Temp Pulse Resp BP Pulse Ox
98.4 F 104 28 140/69 97
09/18/24 07:42 09/18/24 08:23 09/18/24 07:46 09/18/24 08:23 09/18/24 07:46
I&O
09/17/24 09/18/24 09/19/24
06:59 06:59 06:59
Intake Total 1161.7 / 1161.7 630 / 630
Output Total 1100 / 1100 610 / 610
Balance 61.7 / 61.7
Review of Systems
-
History Source: Patient
All other systems: Reviewed and negative
[2024-09-18 08:33] LABS: Glucose - Point of Care 113 mg/dl (70-99)
--- NOTE | 2024-09-18 08:33 | W.PN.CD ---
Today's Communication / Plan
-
- Continue metoprolol tartrate to 50mg BID
- PRN IV lopressor if tachycardia reoccurs.
Impression / Plan
-
Acute on chronic hypoxic/hypercapnic respiratory failure:
-hx COPD on chronic home O2, and nightly bipap
-successfully weaned off ventilatory, currently on 3L NC
Abnormal EKG: known prior likely early repolarization
-stable similar to priors
-echo with no new wall motion abnormality
Abnormal troponin: nonischemic myocardial injury
-Trop peak 0.06. 2/2acute respiratory failure
SVT
- Runs of A. tach x 2 overnight again. Telemetry shows 2-1 AV conduction with A. tach.
-Telemetry reviewed. Runs of narrow complex SVT noted on telemetry. Likely AT with possibility of AVNRT. Resolved with 5mg Lopressor IV
- Continue metoprolol tartrate to 50mg BID
- PRN IV lopressor if tachycardia reoccurs.
- Monitor closely
HTN:
-Stable. Monitor with increased metoprolol dosing
Hyperkalemia:
-Resolved
Subjective: No active complaints. Out of the bed to chair. With exertion, no tachyarrhythmia noted.
Echo Sep 14 2024: CONCLUSIONS
Small LV with hyperdynamic systolic function and no regional wall motion
abnormalities.
LVEF is greater than 70% by visual estimation.
Normal right ventricular size and function.
No significant valvular disease.
Estimated pulmonary artery pressure of 41 mmHg assuming a right atrial pressure
of 8 mmHg.
Compared to prior from November 09, 2021, no significant change.
Physical Exam
Vital Signs/Labs
Vital Signs
Temp Pulse Resp BP Pulse Ox
98.4 F 104 28 140/69 97
09/18/24 07:42 09/18/24 08:23 09/18/24 07:46 09/18/24 08:23 09/18/24 07:46
09/17/24 09/18/24 09/19/24
06:59 06:59 06:59
Actual Weight 42.5 kg 41.5 kg
09/18/24 03:41
PT 12.9 Sec (11.4-14.6) 09/15/24 02:32
INR 0.93 09/15/24 02:32
APTT 27.2 Sec (23.4-35.0) 09/15/24 02:32
Magnesium 2.2 mg/dl (1.6-2.3) 09/18/24 03:41
09/14/24
12:36
Kpr-E-Vrdnryhmjnt Pept 1070
LAB Results
09/15/24 09/15/24 09/17/24
13:13 18:15 22:17
Troponin I 0.052 H* Cancelled Cancelled
Physical Exam
Constitutional: No acute distress and Comfortable
EENT: Anicteric and Moist mucous membranes
Cardiovascular: Rhythm & rate is regular, Pedal edema is absent and JVD pressure is normal
Respiratory: Respiratory effort normal and Rhonchi Present
GI: Soft and Normal bowel sounds
Neuro/Psych: Alert, Oriented, AO x 3 and Motor deficits absent
Data Reviewed
-
Date of Service: September 18, 2024
Medical Decision Making: Reviewed Test Results, Test Interpretation and Review of Case with other Provider
EKG: Tracing Personally Visualized and interpreted
Echo: Report Reviewed by me
Labs: Labs Reviewed by me
Old Records: Reviewed
Critical Care Time (in minutes): 35
[2024-09-18 08:34] LABS: Venous Blood Gas pH 7.62 (7.32-7.43)
[2024-09-18 08:54] LABS: Hematocrit 36.3 % (37.0-47.0); Hemoglobin 11.5 g/dL (12.0-16.0); Mean Corp Hgb Conc. 31.7 g/dL (33.0-37.0); Mean Corpuscular Hgb 31.6 pg (27.0-31.0); Mean Corpuscular Volume 99.7 fL (81.0-99.0); Mean Platelet Volume 9.6 fL (7.4-10.4); Platelet Count 236 10^3/uL (130-400); Red Blood Cell Count 3.64 10^6/uL (4.20-5.40); Red Cell Dist. Width 13.9 % (11.5-14.5); White Blood Cell Count 14.9 10^3/uL (4.8-10.8)
[2024-09-18 09:16] LABS: Troponin I 0.033 ng/ml
[2024-09-18] MEDS: ZITHROMAX 500 MG PO (09:37)
--- NOTE | 2024-09-18 10:55 | PTCARENOTE ---
0700 patient received this am in bed on SpO2 5L
AAO x3 BP via Rt upper arm 140;s ST 104 to SR80's RR 22-32 oxygen decreased to 3L
Lungs diminished, some wheezing.
Incontinent of urine. +BM Appetite good Tolerating with no N/V
Transfer to chair x 1 person maximum assist . OOB for about 30 mints. Requesting to go back in bed.
Critical results VBG: PH 7.62 physician aware.
while in bed + Tachypnea RR irregular POx 93%/while on 3L of oxygen Refusing hospital BIPAP pt's massage left with request to bring BIPAP back
[2024-09-18] MEDS: MORPHINE SULFATE 2 MG IV (11:07)
[2024-09-18] MEDS: DIAMOX 2.5 MG IV (11:32)
[2024-09-18 12:07] LABS: Venous Blood Gas B.E. 12.7 mmol/L (-4 to +4); Venous Blood Gas HCO3 41.4 mmol/L (22-27); Venous Blood Gas O2 Sat % 99.8 %; Venous Blood Gas pH 7.35 (7.32-7.43); Venous Blood Gas pO2 177 mmHg (30-50)
--- NOTE | 2024-09-18 12:10 | W.PN.PUL3 ---
Today's Communication / Plan
-
Continue budesonide and DuoNebs
Start prednisone taper today with eventual transition back to her home dose of 5 mg BID
Up OOB as tolerated
PT/OT
Given that she is drowsy, defer diet to [employer]YOR [employer]
Beta-martha increased on 09/17 by cardiology given episodes of SVT
Continue to trend blood gas to assure pH + pCO2 remained stable
Give dose of Lasix today given development of pleural effusions on CXR
Give dose of Diamox today given significant respiratory + metabolic alkalosis
Continue supplemental oxygen maintaining SpO2 88-95%; check ambulatory pulse oximetry prior to discharge
Pulmonary service will continue to follow along
Assessment
-
Impression:
#Acute on chronic hypoxic/hypercapnic requiring mechanical ventilation (intubated 09/14/2024, extubated 09/16/2024)
#AMS due to CO2 narcosis - AMS waxing and waning
#NORIS (baseline Cr 0.4)
#Hyperglycemia (HbA1C: 6.2 on 06/12/2024)
#Elevated troponin - suspect type II AK as echo done in ER showed no WMA; EKG changes with ST-elevations in infero-lateral leads seen in ER
#Chronic macrocytic anemia
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
#Pulmonary fibrosis with chronic right-sided pleural thickening most prominent on RUL with Hx of XRT (2007 for NHL, 2017 for breast cancer)
#Severe restrictive lung defect (spirometry from 09/2022 showed a post-BD FVC of 0.83L/30% predicted)
#Physical deconditioning (mainly wheelchair bound)
Plan:
- Patient p/w unresponsiveness with SOB and found to be acutely hypercapnic - of note, her baseline pCO2 is 70-80
- Patient was extubated to BiPAP on 09/16 and has been doing well on 4 L/min nasal cannula, saturating 93% and breathing comfortable --> on 09/18 she was more hypoxic and confused
- CXR shows small bilateral pleural effusions - gave a dose of Lasix now
- Blood gas this morning (09/18) showed significant respiratory alkalosis � give a dose of Diamox and continue to closely monitor blood gas as she could become acidemic
- Of note, she wears BiPAP 15/5cmH2O at home and is compliant, which was confirmed by the
- The nurse and I advised the to bring in the patient's home BiPAP machine as she does not like the hospital mask/machine and wants to use her own equipment
- She was wheezing on exam on admission so a COPD exacerbation is likely explanation of her acute respiratory failure; the does not say she was sick over the last several days [employer], no recent sick contacts, no recent travel
- Continue systemic steroids, now with prednisone taper s/p Solumedrol - she is on prednisone 5mg BID at home per Dr. Vitale
- Solu-Medrol lowered to 20 mg IV q8hr on 09/15 from 40mg IV q8hr per hospitalist --> on 09/18 we started a prednisone taper, starting at 40 mg and reduce by 10 mg every third day until back to her home dose; may need to adjust steroids depending on
her rate of improvement
- Maintain euglycemia while on high dose steroids; goal BG 140-180mg/dL
- Keep SpO2 88-95%
- Cardiology consulted due to ST changes seen on EKG done in ER
- Reportedly these changes are not new
- No need for heparin gtt as per Dr. Moran
- Echo showed LVEF >70% with normal RV size/function with no significant valvular disease and PASP 41 mmHg; no significant changes compared to prior echo from November 2021
- Cardiology raised metoprolol to 50mg BID on 09/17 as she continues to have episodes of SVT
- Despite her leukocytosis, she remains afebrile and is nontoxic-appearing. Continue to trend WBC + temperature curve; zithromax started today by hospitalist, which I am okay with especially with its anti-inflammatory effect; continue x 3 days
- Maintain MAP>65
- Renally dose all meds; trend UOP and sCr
- Trend H/H and transfuse if needed to keep Hb>7g/dL; keep plt>20k, unless there is concern for bleeding then keep plt>50k
- Regular diet; given her drowsiness, CONVEYOR MAN consulted on 09/17 who recommended regular textures with thin liquids
- Monitor for refeeding syndrome --> trend BMP, magnesium and phosphorus levels; continue thiamine; folate + vitamin B12 levels are WNL
- PT/OT - she is mainly wheelchair bound and physically deconditioned
- DVT ppx: Lovenox
Code status: No CPR, ok for intubation --> this was confirmed again on 09/15 via the who I spoke to over the phone along with the family friend and the resident, Dr. Galaviz. Confirmed again with the on 09/16, whom I spoke to at
bedside.
Guarded prognosis. Last hospitalized for acute hypoxic/hypercapnic respiratory failure from 06/10 - 06/14/2024.
Of note, pt follows with us in the office. She has follow up with Dr. Vitale on 12/13/2024. Depending if she survives this hospitalization, we will need to move this appt up.
Needs to continue with BiPAP during the day during naps as well as with sleep. Encouraged to bring in the patient's machine from home. Until then, continue with hospital machine on 10/5 cmH2O (of note, patient's home settings are 15/5
cmH2O).
Pulmonary service will continue following along.
Total time spent today was 51 minutes for this encounter. Time includes reviewing laboratory test/imaging results, reviewing pertinent medical records, obtaining and reviewing medical history, performing an appropriate exam, ordering medications,
tests and procedures. Time also includes documentation of this encounter, coordinating patient care and communicating with other healthcare professionals. Total time does not include separately billed tests performed on this date of service.
Subjective Data
-
Date of Service:
Date of Service: September 18, 2024
Chief Complaint: Pulmonary Follow Up
Subjective:
Patient seen and evaluated today at bedside. Currently more short of breath and slightly confused/agitated. Wore BiPAP overnight on 10/5 cmH2O bled with 5 L/min. She is currently saturating 90% on 4 L/min, heart rate 95 and BP 123/74. at
bedside and all questions were answered.
Review of Systems
General: Other (Unobtainable due to patient's acute clinical change in mental status)
Objective Data
Data Reviewed
Vital Signs / I&O / Oxygen:
Vital Signs
Temp Pulse Resp BP Pulse Ox
98.4 F 104 28 140/69 97
09/18/24 07:42 09/18/24 08:23 09/18/24 07:46 09/18/24 08:23 09/18/24 07:46
Intake and Output
09/17/24 09/18/24 09/19/24
06:59 06:59 06:59
Intake Total 1161.7 / 1161.7 630 / 630 100 / 100
Output Total 1100 / 1100 610 / 610
Balance 61.7 / 61.7 20 / 20 100 / 100
SaO2 [A/C] 99
SaO2 97
Nasal Cannula flow liters per 3
minute
Physical Exam
General: Respiratory Distress (Minimal; pursed lips breathing (she chronically breathes like this)), Chills (negative), Sweats (negative) and Other (Elderly, cachectic female; anxious appearing)
HEENT: Normocephalic and Anicteric
Cardiovascular: S1-S2 and Peripheral Edema (+1 lower extremity pitting edema)
Respiratory: Wheeze (negative), Crackles (Bibasal), Rhonchi (negative), Accessory Resp Muscle Use (Mild) and Stridor (negative)
GI: Soft, Non Distended, Non Tender and Normal Bowel Sounds
Neurology: Awake, Tremors (negative), Other (Confused/agitated) and Other (Drowsy at times)
Skin: Warm, Dry, Jaundice (negative) and Rash (negative)
Labs/Micro/Reports
Lab Data
09/18/24 08:43
09/18/24 03:41
[2024-09-18 12:14] LABS: Venous Blood Gas pCO2 75 mmHg (35-48)
[2024-09-18 12:26] LABS: Glucose - Point of Care 201 mg/dl (70-99)
--- NOTE | 2024-09-18 13:29 | PTCARENOTE ---
Repeat VBG alvaroe pt off BIPAP since am on 4L of oxygen resulted: 7.35/75/177/41.4 Patient placed on BIPAP
[2024-09-18] MEDS: NOVOLOG FLEXPEN-LOW RESISTANCE 2 UNITS SC (13:42)
[2024-09-18] MEDS: LASIX 40 MG IV (13:56)
--- NOTE | 2024-09-18 13:59 | PTCARENOTE ---
Lasix 40 mg IV give per order Patient incontinent of urine. Purwick placed to monitor patient urinal output . BP 152/72 SR 92; RR 35; POX 91% BIPAP 12/5/5L patient confused and disoriented . Attempting to get out of bed bed alarm activated
[2024-09-18 15:01] LABS: Venous Blood Gas B.E. 13.3 mmol/L (-4 to +4); Venous Blood Gas HCO3 43.2 mmol/L (22-27); Venous Blood Gas O2 Sat % 88.9 %; Venous Blood Gas pH 7.33 (7.32-7.43); Venous Blood Gas pO2 55 mmHg (30-50)
[2024-09-18 15:09] LABS: Venous Blood Gas pCO2 82 mmHg (35-48)
[2024-09-18 17:15] LABS: Glucose - Point of Care 141 mg/dl (70-99)
[2024-09-18] MEDS: LOVENOX 30 MG SC (19:10)
--- NOTE | 2024-09-18 20:00 | PTCARENOTE ---
Resumed care of pt laying in bed AAOx2, forgetful to time and confused at times. HR in the low 100's ST on the monitor. POX 95% on Bipap 12/ with 5 LO2. Pt tachypneic, NELSON, Orthopneic. POX drops to 84% with repositioning. Lungs dec, course,
Scattered crackles on right side. Occasional cough. Hyper bowel. Pure wick in place due to tenuous resp status. +1 LE edema. Weak pedal pulses. Red warm discoloration of B/L feet. Heels elevated on pillow. Right wrist int capped. Sacral foam applied
to non blanchable red sacrum. Pt repositioned. Pt able to make needs known. Call ochoa in reach. Will continue to monitor.
[2024-09-18 21:26] LABS: Venous Blood Gas B.E. 19.7 mmol/L (-4 to +4); Venous Blood Gas HCO3 46.6 mmol/L (22-27); Venous Blood Gas pCO2 64 mmHg (35-48); Venous Blood Gas pH 7.47 (7.32-7.43); Venous Blood Gas pO2 167 mmHg (30-50)
[2024-09-18 21:39] LABS: Glucose - Point of Care 225 mg/dl (70-99)
[2024-09-19] VITALS (28 sets, daily range): BP systolic 105–157; BP diastolic 48–136; PULSE 2–77; BMI 14.3
[2024-09-19 03:47] LABS: Venous Blood Gas B.E. 17.7 mmol/L (-4 to +4); Venous Blood Gas HCO3 47.5 mmol/L (22-27); Venous Blood Gas O2 Sat % 91.9 %; Venous Blood Gas pH 7.35 (7.32-7.43); Venous Blood Gas pO2 61 mmHg (30-50)
[2024-09-19 03:48] LABS: Hematocrit 37.3 % (37.0-47.0); Hemoglobin 11.5 g/dL (12.0-16.0); Mean Corp Hgb Conc. 30.8 g/dL (33.0-37.0); Mean Corpuscular Hgb 31.1 pg (27.0-31.0); Mean Corpuscular Volume 100.8 fL (81.0-99.0); Mean Platelet Volume 9.6 fL (7.4-10.4); Platelet Count 242 10^3/uL (130-400); Red Cell Dist. Width 13.6 % (11.5-14.5); White Blood Cell Count 11.6 10^3/uL (4.8-10.8)
[2024-09-19 03:54] LABS: Venous Blood Gas pCO2 86 mmHg (35-48)
[2024-09-19 04:10] LABS: Blood Urea Nitrogen 26 mg/dl (7-17); Calcium 9.2 mg/dl (8.4-10.2); Chloride 96 mmol/L (98-107); Estimated Creatinine Clearance 33 ml/min; Glucose 87 mg/dl (70-99); Potassium 3.5 mmol/L (3.5-5.1); Sodium 141 mmol/L (135-145); eGFR > 60.00
[2024-09-19 04:34] LABS: Carbon Dioxide 38 mmol/L (22-30)
--- NOTE | 2024-09-19 04:47 | PTCARENOTE ---
Pt sleeping well overnight. Complete bed bath provided. Pure wick removed. Seema care provided, inc pad applied. Heels elevated on pillows. Bipap remains in place. Pt denies any complaints. No other changes in assessment noted at this time. Will
continue to monitor.
--- NOTE | 2024-09-19 07:34 | W.PN.HOSP.TC ---
Today's Communication/Plan
-
See plan
Assessment / Plan
Assessment / Plan
Physical Exam
Gen-awake, alert, NAD
HEENT-NC, AT, anicteric, BiPAP mask on
Neck-supple
CV-reg, no M, +S1/S2
Lungs-Rales and rhonchi bilaterally
Abd-soft, NT, ND
Ext-no edema
Musculoskeletal-no cyanosis, clubbing
Skin-warm and dry, bruising on both shins
Assessment/Plan
84-year-old female admitted with hypercapnic encephalopathy, and acute on chronic respiratory failure. Intubated in the ER and subsequently extubated in the ICU 48 hours later. Extensive history of pulmonary disease. Uses BiPAP at nighttime at home.
Acute hypercapnic encephalopathy -presentation with decreased level of consciousness and unresponsiveness. Etiology of hypercapnic encephalopathy likely due to COPD exacerbation. Unclear how compliant she was at home with nightly BiPAP. Continue
BiPAP at night and when sleeping
Acute on chronic hypoxic/hypercapnic respiratory failure -intubated in the emergency room. Extubated 09/16. Currently stable on 3 L nasal cannula. Continue BiPAP at nighttime and when napping. This is her baseline.
2 view chest x-ray shows no significant change compared to prior. Possible chronic loculated right-sided pleural effusion or pleural thickening. Likely left apical pleural thickening.
Previously intubated twice in 2021, successfully extubated. Continue BiPAP at night and when sleeping
Paroxysmal Supraventricular Tachycardia - treated with IV Lopressor. Continue Metoprolol Tartrate 50mg BID. Cardiology following.
Hyperkalemia -resolved.
Acute COPD exacerbation -baseline Gold stage IV COPD. Continue inhalers, steroids. Add azithromycin. Does have a productive cough now.
Troponin elevation -suspect acute nonischemic myocardial injury due to critical illness, acute respiratory failure. No wall motion abnormalities on echocardiogram.
Leukocytosis -suspect due to steroids. Afebrile. Looks nontoxic. Monitor for now.
Essential hypertension -stable.
Chronic anemia -hemoglobin at baseline.
History of right breast cancer -treated with lumpectomy, radiation 2014. Had recurrence with bleeding, status post hormonal therapy.
History of NHL -treated with radiation, chemo, completed 2007.
Radiation pneumonitis -chronic pleural thickening.
Chronic bronchiectasis
History of legionnaires pneumonia 1974 complicated by right pneumothorax requiring bilateral chest tube placement.
Chronic low back pain/vertebral fracture/osteoporosis
Pulmonary cachexia -BMI 14.
Limited DNR -no CPR but patient agreeable to intubation. Confirmed with .
Dispo -anticipate discharge to SNF.
Anticipated Discharge: > 48 hours
Subjective/Interval History
-
Date of Service: September 19, 2024
Patient was seen and examined. She reported feeling better overall, denied any new significant symptoms or complaints.
Objective Data
-
Labs:
Laboratory Results
09/19/24
03:34
WBC 11.6 H
Hgb 11.5 L
Hct 37.3
Plt Count 242
Sodium 141
Potassium 3.5
Chloride 96 L
Carbon Dioxide 38 H
BUN 26 H
Creatinine 0.8
Glucose 87
Calcium 9.2
Vital Signs:
Vital Signs
Temp Pulse Resp BP Pulse Ox
97.7 F 69 35 139/73 92
09/19/24 03:27 09/19/24 06:00 09/19/24 06:00 09/19/24 06:00 09/19/24 06:00
I&O
09/18/24 09/19/24 09/20/24
06:59 06:59 06:59
Intake Total 630 / 630 370 / 370
Output Total 610 / 610 1900 / 1900
Balance -1530 / -1530
--- NOTE | 2024-09-19 08:00 | PTCARENOTE ---
Patient received from makeup artistry instructor RN; AAOx3 but confused and forgetful at times, responds spontaneously to RN and follows commands; Hand tremors present; VSS; SR with PAC's and PVC's on monitor; +1 LE edema; +2 radial pulses and +1 DP pulses;
Shallow respirations; Tachypnea and orthopnea present; NELSON; SpO2 93-96% on BIPAP 12/5 5L; Lungs diminished and coarse throughout; Poor appetite and cachectic; Frequent urination on bedpan - urinating clear, yellow urine; Sacral dressing intact;
PIVx1 #20 left forearm; See nursing documentation for further details
[2024-09-19] MEDS: DUONEB 3 ML INH ×4 (08:06→19:41)
[2024-09-19] MEDS: PULMICORT 0.5 MG INH ×2 (08:06→19:41)
--- NOTE | 2024-09-19 08:40 | W.PN.CD ---
Today's Communication / Plan
-
minimal SVT on tele
continue metoprolol tartrate 50mg bid
please call us back with additional questions
Impression / Plan
-
Acute on chronic hypoxic/hypercapnic respiratory failure:
-hx COPD on chronic home O2, and nightly bipap
-successfully weaned off ventilatory, currently on 3L NC
Abnormal EKG: known prior likely early repolarization
-stable similar to priors
-echo with no new wall motion abnormality
Abnormal troponin: nonischemic myocardial injury
-Trop peak 0.06. 2/2acute respiratory failure
SVT, paroxysmal
-Telemetry reviewed. Runs of narrow complex SVT noted on telemetry. Likely AT with possibility of AVNRT.
- Continue metoprolol tartrate 50mg BID
HTN:
-Stable. Monitor with increased metoprolol dosing
Echo Sep 14 2024: CONCLUSIONS
Small LV with hyperdynamic systolic function and no regional wall motion
abnormalities.
LVEF is greater than 70% by visual estimation.
Normal right ventricular size and function.
No significant valvular disease.
Estimated pulmonary artery pressure of 41 mmHg assuming a right atrial pressure
of 8 mmHg.
Compared to prior from November 09, 2021, no significant change.
Physical Exam
Vital Signs/Labs
Vital Signs
Temp Pulse Resp BP Pulse Ox
97.6 F 77 34 127/75 93
09/19/24 07:36 09/19/24 08:08 09/19/24 08:08 09/19/24 07:00 09/19/24 08:08
09/18/24 09/19/24 09/20/24
06:59 06:59 06:59
Actual Weight 41.5 kg 38.9 kg
09/19/24 03:34
09/19/24 03:34
PT 12.9 Sec (11.4-14.6) 09/15/24 02:32
INR 0.93 09/15/24 02:32
APTT 27.2 Sec (23.4-35.0) 09/15/24 02:32
Magnesium 2.2 mg/dl (1.6-2.3) 09/18/24 03:41
09/14/24
12:36
[id number] Pept 1070
LAB Results
09/17/24 09/18/24
22:17 08:43
Troponin I Cancelled 0.033
Physical Exam
EENT: Moist mucous membranes
Cardiovascular: Rhythm & rate is regular, Pedal edema is absent, JVD pressure is normal and Systolic murmur absent
Respiratory: Labored respirations
Neuro/Psych: Alert
Data Reviewed
-
Date of Service: September 19, 2024
EKG: Other (Tele: SR 70s, brief SVT)
Labs: Labs Reviewed by me
[2024-09-19] MEDS: NOVOLOG FLEXPEN-LOW RESISTANCE SC ×2 (08:56→12:43)
[2024-09-19] MEDS: ZITHROMAX INFUSION 250 IV (08:57)
[2024-09-19] MEDS: LOPRESSOR 50 MG PO ×2 (08:57→19:49)
[2024-09-19] MEDS: DELTASONE 40 MG PO (08:57)
[2024-09-19] MEDS: VITAMIN B1 100 MG PO (08:58)
[2024-09-19] MEDS: MIRALAX PO (08:59)
[2024-09-19 09:07] LABS: Glucose - Point of Care 85 mg/dl (70-99)
--- NOTE | 2024-09-19 12:00 | PTCARENOTE ---
Patient tolerated 5L NC for a couple hours; Placed back on BiPAP as per patient request and now resting comfortably in bed
[2024-09-19 12:53] LABS: Glucose - Point of Care 116 mg/dl (70-99)
--- NOTE | 2024-09-19 16:33 | CM ---
Discharge POC: Therapy recommendation for SNF. Patient preference is [facility]. Referral previously forwarded. No response as yet.
--- NOTE | 2024-09-19 16:33 | PTCARENOTE ---
Patient ambulated with assist x1 with RW from bed to chair; Urinated in BSC; Patient still with poor appetite but eating about 50% of meals
--- NOTE | 2024-09-19 16:39 | W.PN.PUL3 ---
Today's Communication / Plan
-
- Continue BiPAP at night and when sleeping
- During daytime, keep BiPAP on for 2 hours then give 4 hours break then again back on for 2 hours followed by break
- Recommend palliative care consult
Assessment
-
#1. 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
-S/p intubation 09/14, extubated on 09/16
-Venous blood gas today shows compensated hypercapnia with normal pH of 7.35
-Wheezing improved, continue DuoNeb, budesonide as well as prednisone taper as ordered
-Continue BiPAP 15/09, nightly and when patient naps. In addition continue 2 hours of BiPAP followed by 4 hours of break as tolerated during daytime.
-Overall prognosis is poor, patient at high risk of respiratory failure and requiring intubation and mechanical ventilation
Other pulmonary co-morbidities:
#Pulmonary fibrosis with chronic right-sided pleural thickening most prominent on RUL with Hx of XRT (2007 for NHL, 2017 for breast cancer)
#Severe restrictive lung defect (spirometry from 09/2022 showed a post-BD FVC of 0.83L/30% predicted)
#Physical deconditioning (mainly wheelchair bound), Pulmonary cachexia
- PT/OT - she is mainly wheelchair bound and physically deconditioned
- DVT ppx: Lovenox
Code status: No CPR, ok for intubation
Guarded prognosis. Last hospitalized for acute hypoxic/hypercapnic respiratory failure from 06/10 - 06/14/2024.
Of note, pt follows with us in the office. She has follow up scheduled with Dr. Vitale on 12/13/2024.
Pulmonary service will continue following along.
Total time spent today was 41 minutes for this encounter. Time includes reviewing laboratory test/imaging results, reviewing pertinent medical records, obtaining and reviewing medical history, performing an appropriate exam, ordering medications,
tests and procedures. Time also includes documentation of this encounter, coordinating patient care and communicating with other healthcare professionals. Total time does not include separately billed tests performed on this date of service.
Subjective Data
-
Date of Service:
Date of Service: September 19, 2024
Chief Complaint: Pulmonary Follow Up
Subjective:
Patient comfortably sitting in bed, in no acute distress.
Review of Systems
Genitourinary: Other (No new symptoms reported.)
Objective Data
Data Reviewed
Vital Signs / I&O / Oxygen:
Vital Signs
Temp Pulse Resp BP Pulse Ox
97.9 F 79 28 117/59 100
09/19/24 11:17 09/19/24 16:00 09/19/24 16:36 09/19/24 16:00 09/19/24 16:36
Intake and Output
09/18/24 09/19/24 09/20/24
06:59 06:59 06:59
Intake Total 630 / 630 370 / 370 520 / 520
Output Total 610 / 610 1900 / 1900 475 / 475
Balance 20 / -1530 / -1530 45 / 45
SaO2 [A/C] 99
SaO2 100
Nasal Cannula flow liters per 5
minute
Physical Exam
General: Other (Borderline tachypnea noted while patient was off BiPAP overall appeared comfortable.)
HEENT: Normocephalic and Anicteric
Cardiovascular: S1-S2 and Peripheral Edema (+1 lower extremity pitting edema)
Respiratory: Other (Prolonged expiration, no obvious wheezing on exam. No rhonchi. No stridor.)
GI: Soft, Non Distended, Non Tender and Normal Bowel Sounds
Neurology: Awake and Alert
Skin: Warm and Dry
Labs/Micro/Reports
Lab Data
09/19/24 03:34
09/19/24 03:34
[2024-09-19] MEDS: NOVOLOG FLEXPEN-LOW RESISTANCE 1 UNITS SC (17:39)
[2024-09-19] MEDS: LOVENOX 30 MG SC (17:39)
[2024-09-19 17:40] LABS: Glucose - Point of Care 157 mg/dl (70-99)
--- NOTE | 2024-09-19 20:00 | PTCARENOTE ---
Received pt at shift chair. Pt OOB to the chair, offers no complaints. AAOx3, does intermittently participate in confused conversation. NSR on the monitor. SpO2 94% on 5L O2 NC, lungs sound coarse/diminished throughout with fine scattered crackles
primarily on the R side. Pt requesting BiPAP mask at this time, RT at the bedside for scheduled nebulizer treatment. Hyperactive bowel sounds, round abd. Pt politely declines RN offer to get back in bed, resting comfortably at this time, safe
environment maintained.
[2024-09-19 21:56] LABS: Glucose - Point of Care 319 mg/dl (70-99)
[2024-09-19] MEDS: NOVOLOG FLEXPEN 5 UNITS SC (22:33)
[2024-09-20] VITALS (29 sets, daily range): BP systolic 95–141; BP diastolic 48–82; PULSE 2–69; O2SAT 99; BMI 14.3
--- NOTE | 2024-09-20 03:57 | PTCARENOTE ---
patient having period of confusion and agitation with on phone, keeps taking off her bipap to speak to him, when he tried to explain he was coming in the morining she became more upset and wanted him here now, patients requested i
move the phone so she can not keep calling him and getting upset.
5 units of insulin given for evening BG of 315, patient now in bed resting comfortably, bipap remains on with o2 of 98%, patient not trying to remove mask anymore
no c/o pain or discomfort at this time,
[2024-09-20 06:34] LABS: % Basophils 0.3 % (0-2); % Eosinophils 1.8 % (0-6); % Immature Granulocytes 1.6 % (0-0.5); % Lymphocytes 4.4 % (20.5-51.1); % Monocytes 7.6 % (1.7-9.3); % Neutrophils 84.3 % (42.2-75.2); Absolute Eosinophils 0.2 10^3/uL (0-0.7); Absolute Immature Granulocytes 0.2 10^3/uL (0-0.05); Absolute Lymphocytes 0.5 10^3/uL (1.2-3.4); Absolute Monocytes 0.9 10^3/uL (0.1-0.6); Absolute Neutrophils 10.2 10^3/uL (1.4-6.5); Hematocrit 38.2 % (37.0-47.0); Hemoglobin 11.9 g/dL (12.0-16.0); Mean Corp Hgb Conc. 31.2 g/dL (33.0-37.0); Mean Corpuscular Hgb 31.2 pg (27.0-31.0); Nucleated Red Blood Cells % 0 %; Red Blood Cell Count 3.82 10^6/uL (4.20-5.40); Red Cell Dist. Width 13.5 % (11.5-14.5); White Blood Cell Count 12.1 10^3/uL (4.8-10.8)
[2024-09-20 06:43] LABS: Blood Urea Nitrogen 32 mg/dl (7-17); Calcium 9.2 mg/dl (8.4-10.2); Chloride 98 mmol/L (98-107); Estimated Creatinine Clearance 38 ml/min; Glucose 91 mg/dl (70-99); Potassium 3.8 mmol/L (3.5-5.1); Sodium 142 mmol/L (135-145); eGFR > 60.00
[2024-09-20 06:54] LABS: Carbon Dioxide 41 mmol/L (22-30)
[2024-09-20] MEDS: PULMICORT 0.5 MG INH ×2 (07:53→20:04)
[2024-09-20] MEDS: DUONEB 3 ML INH ×4 (07:53→20:04)
--- NOTE | 2024-09-20 09:05 | PN.CDI ---
CDI
- -
CDI:
Physician Documentation Request
Admit Date: 09/14/24 14:57
Dear Doctor Chandana,
Patient admitted for encephalopathy.
09/19 [employer] Assessment: 'Pt meets criteria for severe protein calorie malnutrition of chronic illness with prolonged inadequate intake, severe loss subcutanous fat (orbital), severe loss muscle (temopral, buccal, clavicle).'
Based on the above information and your assessment, which of the following most accurately represents the patient's nutritional status?
Severe protein calorie malnutrition
Other
Post Criteria ([facility] Hospitalist 2017)
2 or more criteria must be present for either
non severe or severe malnutrition
Note that the criteria differs related to the
presence of an acute or chronic illness
Acute Illness Chronic Illness
Energy Intake Non Severe: <75% for >7 days Non Severe: <75% for >1 month
Severe: <50% for >5 days Severe: <75% for >1 month
Weight Loss Non Severe: 1-2% over 1 week Non Severe: 5% over 1 month
5% over 1 month 7.5% over 3 months
7.5% over 3 months 10% over 6 months
1 year N/A 20% over 1 year
Severe: >2% over 1 week Severe: >5% over 1 month
>5% over 1 month >7.5% over 3 months
>7.5% over 3 months >10% over 6 months
1 year N/A >20% over 1 year
Body Fat Non Severe: Mild Decrease Non Severe: Mild Loss
Severe: Moderate Decrease Severe: Severe Loss
Muscle Mass Non Severe: Mild Decrease Non Severe: Mild Loss
Severe: Moderate Decrease Severe: Severe Loss
Fluid Accumulation Non Severe: Mild Accumulation Non Severe: Mild Accumulation
Severe: Moderate to severe Severe: Moderate to severe
accumulation accumulation
Reduced Pr Internship Strength Non Severe: N/A Non Severe: N/A
Severe: Measurably reduced Severe: Measurably reduced
Additional criteria that can be used to Determine if Mild or Moderate Malnutrition ([employer] Manual 2018)
Mild Moderate Severe
Albumin gm/dl <3.0 gm/dl <2.5 gm/dl <2.0 gm/dl
Pre Albumin mg/dl <15 gm/dl <10 mg/dl <5.0 mg/dl
BMI <18.5 <17 <16
Use of terms such as suspected, likely, concern for, or probable (associated with a specific diagnosis that is being evaluated, monitored, or treated as if it exists) are acceptable and can be coded in the inpatient setting, when documented at the
time of discharge.
Thank you,
Shelby Gonzalez RN, BSN
CDI Specialist
Available via Lee text
Please use your independent medical judgment in providing your response.
[2024-09-20] MEDS: MIRALAX 17 GRAMS PO (09:07)
[2024-09-20] MEDS: DELTASONE 40 MG PO (09:07)
[2024-09-20] MEDS: LOPRESSOR 50 MG PO ×2 (09:08→21:35)
[2024-09-20] MEDS: VITAMIN B1 100 MG PO (09:08)
--- NOTE | 2024-09-20 09:10 | PN.CDI ---
CDI
- -
CDI:
Physician Documentation Request
Admit Date: 09/14/24 14:57
Dear Doctor Chandana,
Patient admitted for encephalopathy.
Clinical panel nursing documentation wound care
09/18/24
21:02 09/19/24
15:30
Is this a pressure-related injury? [Present on admission Sacrum] Yes Yes
Pressure injury appearance (Stage 1) [Present on admission Sacrum] Non blanchable
red Non blanchable
red
Warm
Pressure injury stage [Present on admission Sacrum] Stage 1 Stage 1
Surrounding Skin - [Present on admission Sacrum] Dry and intact Dry and intact
Physician documentation of the type and location of wounds is required for compliant documentation. Based on the above clinical findings and your assessment, please provide the following in your progress note:
1. Location of the ulcer/wound, including laterality.
2. Type (etiology) of ulcer/wound:
- Diabetic ulcer
- Arterial (ischemic) ulcer
- Traumatic wound
- Venous stasis ulcer
- Pressure (decubitus) ulcer
- Non-healing surgical wound
- Other
- Unable to determine
3. For a non-pressure ulcer, please indicate the depth/severity:
- Limited to the breakdown of skin
- With fat layer exposed
- With necrosis of muscle
- With necrosis of bone
- Other
- Unable to determine
4. If a pressure ulcer, please also include the stage* of the ulcer:
- Stage 1 - Skin intact, non-blanchable redness
- Stage 2 - Partial thickness loss of dermis, includes intact or open blister
- Stage 3 - Full thickness tissue not including bone, tendon or muscle
- Stage 4 - Full thickness tissue loss, including exposed bone, tendon or muscle
- Unstageable - Full thickness loss in which the base of the ulcer is covered by slough (yellow, [place], elias, green or brown) and/or eschar ([place], brown or black) in the wound bed.
- Unable to determine
Use of terms such as suspected, likely, concern for, or probable (associated with a specific diagnosis that is being evaluated, monitored, or treated as if it exists) are acceptable and can be coded in the inpatient setting, when documented at the
time of discharge.
Thank you,
Shelby Gonzalez RN, BSN
CDI Specialist
Available via [place] text
Please use your independent medical judgment in providing your response.
*Source: National Pressure Ulcer Advisory Panel (NPUAP)
[2024-09-20] MEDS: NOVOLOG FLEXPEN-LOW RESISTANCE SC (09:27)
[2024-09-20 09:30] LABS: Glucose - Point of Care 83 mg/dl (70-99)
[2024-09-20] MEDS: ZITHROMAX INFUSION 250 IV (09:33)
--- NOTE | 2024-09-20 11:58 | CM ---
B/L Rales/Rhonchi, Alternating use of bipap frequency, O2 NC 4L, pulmonary recommending palliative consult. Discharge POC: SNF. Preference is [facility]. Referral previously forwarded.
--- NOTE | 2024-09-20 12:18 | PTCARENOTE ---
Pt weaned to 2L NC, she is oob to chair for meals, voiding via commode, worked with PT/OT. Plan is to put patient back on bipap prn. See MAR/flowsheets for further care details.
[2024-09-20 13:05] LABS: Glucose - Point of Care 182 mg/dl (70-99)
[2024-09-20] MEDS: NOVOLOG FLEXPEN-LOW RESISTANCE 1 UNITS SC ×2 (13:05→16:29)
--- NOTE | 2024-09-20 13:10 | W.PN.PUL3 ---
Today's Communication / Plan
-
- Switch BiPAP to as needed during daytime and continue when napping/sleeping.
- Continue to taper steroids
- PT/OT
Assessment
-
#1. 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
-S/p intubation 09/14, extubated on 09/16
-Venous blood gas shows compensated hypercapnia with normal pH.
-Wheezing resolved, continue DuoNeb, budesonide as well as prednisone taper as ordered
-Continue BiPAP /, nightly and when patient naps. Switch to as needed use during daytime rather than 4 hours of 2 hours on as we did on 09/19.
-Overall prognosis is poor, patient at high risk of respiratory failure and requiring intubation and mechanical ventilation
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
Other pulmonary co-morbidities:
#Pulmonary fibrosis with chronic right-sided pleural thickening most prominent on RUL with Hx of XRT (2007 for NHL, 2017 for breast cancer)
#Severe restrictive lung defect (spirometry from 09/2022 showed a post-BD FVC of 0.83L/30% predicted)
#Physical deconditioning (mainly wheelchair bound), Pulmonary cachexia
- PT/OT - she is mainly wheelchair bound and physically deconditioned
- DVT ppx: Lovenox
Code status: No CPR, ok for intubation
Guarded prognosis. Last hospitalized for acute hypoxic/hypercapnic respiratory failure from 06/10 - 06/14/2024.
Of note, pt follows with us in the office. She has follow up scheduled with Dr. Vitale on 12/13/2024.
Pulmonary service will continue following along.
Total time spent today was 40 minutes for this encounter. Time includes reviewing laboratory test/imaging results, reviewing pertinent medical records, obtaining and reviewing medical history, performing an appropriate exam, ordering medications,
tests and procedures. Time also includes documentation of this encounter, coordinating patient care and communicating with other healthcare professionals. Total time does not include separately billed tests performed on this date of service.
Subjective Data
-
Date of Service:
Date of Service: September 20, 2024
Chief Complaint: Pulmonary Follow Up
Subjective:
Patient sitting in chair, in no acute distress. Overall reports feeling gradually better.
Review of Systems
Genitourinary: Other (All 14 systems reviewed and negative except as stated above in the history of present illness.)
Objective Data
Data Reviewed
Vital Signs / I&O / Oxygen:
Vital Signs
Temp Pulse Resp BP Pulse Ox
97.7 F 66 26 117/53 96
09/20/24 13:00 09/20/24 13:00 09/20/24 13:00 09/20/24 12:00 09/20/24 13:00
Intake and Output
09/19/24 09/20/24 09/21/24
06:59 06:59 06:59
Intake Total 370 / 370 760 / 760 740 / 740
Output Total 1900 / 1900 500 / 500 0 / 0
Balance -1530 / -1530 260 / 260 740 / 740
SaO2 [A/C] 99
SaO2 96
Nasal Cannula flow liters per 2
minute
Physical Exam
General: Other (Borderline tachypnea noted while patient was off BiPAP overall appeared comfortable.)
HEENT: Normocephalic and Anicteric
Cardiovascular: S1-S2 and Peripheral Edema (+1 lower extremity pitting edema)
Respiratory: Other (Prolonged expiration, no obvious wheezing on exam. No rhonchi. No stridor.)
GI: Soft, Non Distended, Non Tender and Normal Bowel Sounds
Neurology: Awake and Alert
Skin: Warm and Dry
Labs/Micro/Reports
Lab Data
09/20/24 06:01
09/20/24 06:01
--- NOTE | 2024-09-20 13:48 | W.PN.HOSP.TC ---
Today's Communication/Plan
-
See plan
Assessment / Plan
Assessment / Plan
Physical Exam
Gen-awake, alert, NAD
HEENT-NC, AT, anicteric, BiPAP mask on
Neck-supple
CV-reg, no M, +S1/S2
Lungs-Rales and rhonchi bilaterally
Abd-soft, NT, ND
Ext-no edema
Musculoskeletal-no cyanosis, clubbing
Skin-warm and dry, bruising on both shins
Assessment/Plan
84-year-old female admitted with hypercapnic encephalopathy, and acute on chronic respiratory failure. Intubated in the ER and subsequently extubated in the ICU 48 hours later. Extensive history of pulmonary disease. Uses BiPAP at nighttime at home.
Acute hypercapnic encephalopathy -presentation with decreased level of consciousness and unresponsiveness. Etiology of hypercapnic encephalopathy likely due to COPD exacerbation. Unclear how compliant she was at home with nightly BiPAP. Continue
BiPAP at night and when sleeping
Acute on chronic hypoxic/hypercapnic respiratory failure -intubated in the emergency room. Extubated 09/16. Currently stable on 2 L nasal cannula. Continue BiPAP at nighttime and when napping. This is her baseline.
2 view chest x-ray shows no significant change compared to prior. Possible chronic loculated right-sided pleural effusion or pleural thickening. Likely left apical pleural thickening.
Previously intubated twice in 2021, successfully extubated. Continue BiPAP at night and daytime when sleeping. Continue Prednisone taper.
Paroxysmal Supraventricular Tachycardia - treated with IV Lopressor. Continue Metoprolol Tartrate 50mg BID. Cardiology following.
Hyperkalemia -resolved.
Acute COPD exacerbation -baseline Gold stage IV COPD. Continue inhalers, steroids. Add azithromycin. Does have a productive cough now. Continue BiPAP as above.
Troponin elevation -suspect acute nonischemic myocardial injury due to critical illness, acute respiratory failure. No wall motion abnormalities on echocardiogram.
Leukocytosis -suspect due to steroids. Afebrile. Looks nontoxic. Monitor for now.
Essential hypertension -stable.
Chronic anemia -hemoglobin at baseline.
History of right breast cancer -treated with lumpectomy, radiation 2014. Had recurrence with bleeding, status post hormonal therapy.
History of NHL -treated with radiation, chemo, completed 2007.
Radiation pneumonitis -chronic pleural thickening.
Chronic bronchiectasis
History of legionnaires pneumonia 1974 complicated by right pneumothorax requiring bilateral chest tube placement.
Chronic low back pain/vertebral fracture/osteoporosis
Pulmonary cachexia -BMI 14.
Severe protein calorie malnutrition
Stage 1 Sacral Pressure Injury
Limited DNR -no CPR but patient agreeable to intubation. Confirmed with .
Disposition - anticipate discharge to SNF.
Anticipated Discharge: 24 - 48 hours
Subjective/Interval History
-
Date of Service: September 20, 2024
Patient was seen and examined. She reported overall feeling better, no new chest pain or shortness of breath.
Objective Data
-
Labs:
Laboratory Results
09/20/24
06:01
WBC 12.1 H
Hgb 11.9 L
Hct 38.2
Plt Count
Sodium 142
Potassium 3.8
Chloride 98
Carbon Dioxide 41 H
BUN 32 H
Creatinine 0.7
Glucose 91
Calcium 9.2
Vital Signs:
Vital Signs
Temp Pulse Resp BP Pulse Ox
97.7 F 66 26 117/53 96
09/20/24 13:00 09/20/24 13:00 09/20/24 13:00 09/20/24 12:00 09/20/24 13:00
I&O
09/19/24 09/20/24 09/21/24
06:59 06:59 06:59
Intake Total 370 / 370 760 / 760 740 / 740
Output Total 1900 / 1900 500 / 500 0 / 0
Balance -1530 / -1530 260 / 260 740 / 740
--- NOTE | 2024-09-20 15:08 | PTCARENOTE ---
Patient asked to be put back on bipap and get out of chair and into bed. Pt took a couple minutes to recover from transfer from chair to bed. New pulse ox was applied and old one on left great toe removed. Bilateral feet are ecchymotic which is
similar to findings on previous shifts. LR pulses are palpable. Pt is at bedside visiting.
[2024-09-20 16:29] LABS: Glucose - Point of Care 169 mg/dl (70-99)
[2024-09-20] MEDS: LOVENOX 30 MG SC (16:29)
--- NOTE | 2024-09-20 20:00 | PTCARENOTE ---
rec`d pt on BIPAP and pt sleeping. oriented x3. bed alarm on pt. SR on monitor. bilateral feet are purple in color. +pulses via doppler. pt wanted to eat dinner so BIPAP off and 3L placed. POX 99%. dimin coarse bilateral. ate 30% of her dinner.
purwick placed. PIVS flushed and patent. call ochoa in reach. safe environment maintained.
[2024-09-20] MEDS: DUONEB INH (20:04)
[2024-09-21] VITALS (24 sets, daily range): BP systolic 104–145; BP diastolic 50–82; PULSE 2–72; BMI 14.3
[2024-09-21 05:03] LABS: Hematocrit 37.6 % (37.0-47.0); Hemoglobin 11.6 g/dL (12.0-16.0); Mean Corp Hgb Conc. 30.9 g/dL (33.0-37.0); Mean Corpuscular Hgb 31.4 pg (27.0-31.0); Mean Corpuscular Volume 101.9 fL (81.0-99.0); Platelet Count 286 10^3/uL (130-400); Red Blood Cell Count 3.69 10^6/uL (4.20-5.40); Red Cell Dist. Width 13.3 % (11.5-14.5); White Blood Cell Count 10.6 10^3/uL (4.8-10.8)
[2024-09-21 05:27] LABS: Blood Urea Nitrogen 37 mg/dl (7-17); Calcium 9.2 mg/dl (8.4-10.2); Chloride 99 mmol/L (98-107); Estimated Creatinine Clearance 45 ml/min; Glucose 126 mg/dl (70-99); Potassium 4.2 mmol/L (3.5-5.1); Sodium 143 mmol/L (135-145); eGFR > 60.00
[2024-09-21 06:07] LABS: Carbon Dioxide 41 mmol/L (22-30)
[2024-09-21] MEDS: PULMICORT 0.5 MG INH ×2 (07:25→19:06)
[2024-09-21] MEDS: DUONEB 3 ML INH ×4 (07:25→19:06)
--- NOTE | 2024-09-21 07:55 | W.PN.HOSP.TC ---
Today's Communication/Plan
-
Transfer to telemetry
PT/OT
RT assessment for outpatient O2 needs
Continue BiPAP and steroid taper
Assessment / Plan
Assessment / Plan
Physical Exam
Gen-awake, alert, NAD
HEENT-NC, AT, anicteric, BiPAP mask on
Neck-supple
CV-reg, no M, +S1/S2
Lungs-Rales and rhonchi bilaterally
Abd-soft, NT, ND
Ext-no edema
Musculoskeletal-no cyanosis, clubbing
Skin-warm and dry, bruising on both shins
Assessment/Plan
84-year-old female admitted with hypercapnic encephalopathy, and acute on chronic respiratory failure. Intubated in the ER and subsequently extubated in the ICU 48 hours later. Extensive history of pulmonary disease. Uses BiPAP at nighttime at home.
Acute hypercapnic encephalopathy -presentation with decreased level of consciousness and unresponsiveness. Etiology of hypercapnic encephalopathy likely due to COPD exacerbation. Unclear how compliant she was at home with nightly BiPAP. Continue
BiPAP at night and when sleeping
Acute on chronic hypoxic/hypercapnic respiratory failure -intubated in the emergency room. Extubated 09/16. Currently stable on 2 L nasal cannula. Continue BiPAP at nighttime and when napping. This is her baseline.
2 view chest x-ray shows no significant change compared to prior. Possible chronic loculated right-sided pleural effusion or pleural thickening. Likely left apical pleural thickening.
Previously intubated twice in 2021, successfully extubated. Continue BiPAP at night and daytime when sleeping. Continue Prednisone taper.
Paroxysmal Supraventricular Tachycardia - treated with IV Lopressor. Continue Metoprolol Tartrate 50mg BID. Cardiology following.
Hyperkalemia -resolved.
Acute COPD exacerbation -baseline Gold stage IV COPD. Continue inhalers, steroids. Add azithromycin. Does have a productive cough now. Continue BiPAP as above.
Troponin elevation -suspect acute nonischemic myocardial injury due to critical illness, acute respiratory failure. No wall motion abnormalities on echocardiogram.
Leukocytosis -suspect due to steroids. Afebrile. Looks nontoxic. Monitor for now.
Essential hypertension -stable.
Chronic anemia -hemoglobin at baseline.
History of right breast cancer -treated with lumpectomy, radiation 2014. Had recurrence with bleeding, status post hormonal therapy.
History of NHL -treated with radiation, chemo, completed 2007.
Radiation pneumonitis -chronic pleural thickening.
Chronic bronchiectasis
History of legionnaires pneumonia 1974 complicated by right pneumothorax requiring bilateral chest tube placement.
Chronic low back pain/vertebral fracture/osteoporosis
Pulmonary cachexia -BMI 14.
Severe protein calorie malnutrition
Stage 1 Sacral Pressure Injury
Limited DNR -no CPR but patient agreeable to intubation. Confirmed with .
Disposition - anticipate discharge to SNF.
Anticipated Discharge: Within 24 hours
Subjective/Interval History
-
Date of Service: September 21, 2024
Patient was seen and examined. She reported no new symptoms, still with some shortness of breath as before.
Objective Data
-
Labs:
Laboratory Results
09/21/24
04:50
WBC 10.6
Hgb 11.6 L
Hct 37.6
Plt Count 286
Sodium 143
Potassium 4.2
Chloride 99
Carbon Dioxide 41 H
BUN 37 H
Creatinine 0.6
Glucose 126 H
Calcium 9.2
Vital Signs:
Vital Signs
Temp Pulse Resp BP Pulse Ox
97.9 F 71 16 139/59 99
09/21/24 07:46 09/21/24 07:27 09/21/24 07:27 09/21/24 07:00 09/21/24 07:27
I&O
09/20/24 09/21/24 09/22/24
06:59 06:59 06:59
Intake Total 760 / 760 790 / 790
Output Total 500 / 500 0 / 0
Balance 260 / 260 790 / 790
[2024-09-21 08:07] LABS: Glucose - Point of Care 111 mg/dl (70-99)
[2024-09-21] MEDS: NOVOLOG FLEXPEN-LOW RESISTANCE SC ×2 (08:16→16:11)
[2024-09-21] MEDS: VITAMIN B1 100 MG PO (09:29)
[2024-09-21] MEDS: DELTASONE 40 MG PO (09:29)
[2024-09-21] MEDS: LOPRESSOR 50 MG PO ×2 (09:30→20:10)
[2024-09-21] MEDS: MIRALAX PO (09:30)
--- NOTE | 2024-09-21 11:19 | CM ---
Addendum entered by Marlon Hairston 09/21/24 14:33:
CM met with pt and pt;s Esteban at bedside.
CM spoke to [facility] director executive communications and she confirmed that pt is accepted for admission to [facility] when medically stable.
D/C plan: [facility] when medically stable and based on bed availability.
CM will follow to assist pt with discharge to [facility].
Original Note:
CM following re: discharge planning.
Reviewed pt's chart, met with pt.
Per chart review, pt is recovering from COPD, requires 2L NC and Bi-pap at night.
PT and OT evaluations noted - SNF level of care recommended. Pt referred to preferred [facility], no response on [facility] yet. CM spoke to [facility] admission director and she will review a referral shortly and will notify this CM of the decision.
D/C plan: [facility]. Awaiting for confirmation.
CM will follow to assist pt with discharge to a preferred SNF.
[2024-09-21 16:07] LABS: Glucose - Point of Care 261 mg/dl (70-99)
[2024-09-21] MEDS: NOVOLOG FLEXPEN-LOW RESISTANCE 3 UNITS SC (16:11)
--- NOTE | 2024-09-21 17:30 | W.PN.PUL3 ---
Today's Communication / Plan
-
- Continue to taper prednisone as ordered
- Continue BiPAP nightly as well as when patient naps. In addition she is currently on 2 hours of BiPAP on and then 4 hours break alternating during the day.
- Patient can be transferred out of IMU, pulmonary service will continue to follow along
Assessment
-
#1. 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
-S/p intubation 09/14, extubated on 09/16
-Venous blood gas shows compensated hypercapnia with normal pH.
-Wheezing resolved, continue DuoNeb, budesonide as well as prednisone taper as ordered
-Continue BiPAP /, nightly and when patient naps. At home patient and uses BiPAP after breakfast then again after lunch and again in the evening in addition to nightly use. Continue 4-hour break in between 2 hours of BiPAP therapy during the
day.
-Overall prognosis is poor, patient at high risk of respiratory failure and requiring intubation and mechanical ventilation
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
Other pulmonary co-morbidities:
#Pulmonary fibrosis with chronic right-sided pleural thickening most prominent on RUL with Hx of XRT (2007 for NHL, 2017 for breast cancer)
#Severe restrictive lung defect (spirometry from 09/2022 showed a post-BD FVC of 0.83L/30% predicted)
#Physical deconditioning (mainly wheelchair bound), Pulmonary cachexia
- PT/OT - she is mainly wheelchair bound and physically deconditioned
- DVT ppx: Lovenox
Code status: No CPR, ok for intubation
Guarded prognosis. Last hospitalized for acute hypoxic/hypercapnic respiratory failure from 06/10 - 06/14/2024.
Of note, pt follows with us in the office. She has follow up scheduled with Dr. Vitale on 12/13/2024.
Pulmonary service will continue following along.
Total time spent today was 38 minutes for this encounter. Time includes reviewing laboratory test/imaging results, reviewing pertinent medical records, obtaining and reviewing medical history, performing an appropriate exam, ordering medications,
tests and procedures. Time also includes documentation of this encounter, coordinating patient care and communicating with other healthcare professionals. Total time does not include separately billed tests performed on this date of service.
Subjective Data
-
Date of Service:
Date of Service: September 21, 2024
Chief Complaint: Pulmonary Follow Up
Subjective:
Patient sitting in bed, in no acute distress. Feels at about her baseline.
Review of Systems
Genitourinary: Other (No new symptoms reported.)
Objective Data
Data Reviewed
Vital Signs / I&O / Oxygen:
Vital Signs
Temp Pulse Resp BP Pulse Ox
97.7 F 62 29 134/63 92
09/21/24 15:07 09/21/24 16:00 09/21/24 16:00 09/21/24 16:00 09/21/24 16:00
Intake and Output
09/20/24 09/21/24 09/22/24
06:59 06:59 06:59
Intake Total 760 / 760 790 / 790
Output Total 500 / 500 0 / 0 200 / 200
Balance 260 / 260 790 / 790 -200 / -200
SaO2 [A/C] 99
SaO2 92
Nasal Cannula flow liters per 5
minute
Physical Exam
General: Other (Borderline tachypnea noted while patient was off BiPAP overall appeared comfortable.)
HEENT: Normocephalic and Anicteric
Cardiovascular: S1-S2 and Peripheral Edema (+1 lower extremity pitting edema)
Respiratory: Other (Prolonged expiration, no obvious wheezing on exam. No rhonchi. No stridor.)
GI: Soft, Non Distended, Non Tender and Normal Bowel Sounds
Neurology: Awake and Alert
Skin: Warm and Dry
Labs/Micro/Reports
Lab Data
09/21/24 04:50
09/21/24 04:50
[2024-09-21] MEDS: LOVENOX 30 MG SC (20:10)
[2024-09-22] VITALS (21 sets, daily range): BP systolic 78–144; BP diastolic 42–74; PULSE 2–91; O2SAT 94–99; BMI 14.7
[2024-09-22 05:39] LABS: Hematocrit 37.4 % (37.0-47.0); Hemoglobin 11.3 g/dL (12.0-16.0); Mean Corp Hgb Conc. 30.2 g/dL (33.0-37.0); Mean Corpuscular Hgb 31.1 pg (27.0-31.0); Mean Platelet Volume 10.5 fL (7.4-10.4); Platelet Count 276 10^3/uL (130-400); Red Blood Cell Count 3.63 10^6/uL (4.20-5.40); Red Cell Dist. Width 13.2 % (11.5-14.5); White Blood Cell Count 10.2 10^3/uL (4.8-10.8)
[2024-09-22 05:53] LABS: Blood Urea Nitrogen 33 mg/dl (7-17); Calcium 8.9 mg/dl (8.4-10.2); Chloride 98 mmol/L (98-107); Estimated Creatinine Clearance 46 ml/min; Glucose 106 mg/dl (70-99); Potassium 3.9 mmol/L (3.5-5.1); Sodium 143 mmol/L (135-145); eGFR > 60.00
[2024-09-22 06:08] LABS: Glucose - Point of Care 100 mg/dl (70-99)
[2024-09-22] MEDS: PULMICORT 0.5 MG INH ×2 (07:23→19:21)
[2024-09-22] MEDS: DUONEB 3 ML INH ×4 (07:23→19:21)
[2024-09-22 07:49] LABS: Carbon Dioxide 42 mmol/L (22-30)
[2024-09-22 09:10] LABS: Glucose - Point of Care 114 mg/dl (70-99)
[2024-09-22] MEDS: NOVOLOG FLEXPEN-LOW RESISTANCE SC ×2 (09:12→11:59)
[2024-09-22] MEDS: LOPRESSOR 50 MG PO (09:17)
[2024-09-22] MEDS: VITAMIN B1 100 MG PO (09:17)
[2024-09-22] MEDS: MIRALAX 17 GRAMS PO (09:18)
[2024-09-22] MEDS: DELTASONE 30 MG PO (09:18)
--- NOTE | 2024-09-22 10:35 | W.PN.PUL3 ---
Today's Communication / Plan
-
Remains on BIPAP, but unclear cause for CO2 rise again despite compliance
Will look into arrangements of BIPAP with [facility] rate as OP
Otherwise, encouraged rehab/PT
Prednisone taper per team
OP FU -- we will arrange
Discharge planning
Assessment
-
84-year-old F former tobacco smoker (quit 2002) with PMHx of advanced COPD with bronchiectasis/emphysema on chronic prednisone, COPD-cachexia, pulmonary fibrosis with Hx of XRT (2007 for NHL, 2017 for breast cancer), chronic cough, chronic hypoxic
respiratory failure on home O2 (2-4L/min), chronic hypercapnic respiratory failure on nocturnal BiPAP 15/5cmH2O, Hx of breast cancer s/p hormonal therapy + XRT, Hx of pneumonia, Hx of shingles, cataracts, HTN and Hx of pleurisy who p/w AMS and SOB.
Initially in the ER, she was afebrile to 99.2F, OR 122, RR 35, BP 133/84, and was saturating 89% on 2L/min. Blood gas showed acute on chronic hypercapnea with pH 7.23 with pCO2 108. K level was 5.6, Cr 1 (baseline: 0.4), glucose 209, troponin
0.052, proBNP 1070, and UA without signs of UTI. No evidence of an acute pneumonia on CXR. She was given 500cc NS 0.9%, and sedated with fentanyl and then admitted to ICU. While in ER, she developed ST elevation in infero-lateral leads.
Cardiology consulted, stat echo showed no WMA. Not considered appropriate for laboratory director at this time. Mmd Unit Teacher consulted for additional management/recommendations.
Acute on chronic hypoxic/hypercapnic now on mechanical ventilation (intubated 09/14/2024)
Suspected baseline CO2 level around 70
Unresponsiveness
Pulmonary cachexia
Effusions, possible mild comorbid CHF
Conditions present prior to admission:
History of severe lung disease including radiation fibrosis, severe bronchiectasis
Mixed obstructive/restrictive lung disease
FVC 0.8/31%, ratio 56
Patient declined more aggressive therapy (vest therapy/nebulizers/chronic antibiotics) did not tolerate azithromycin
History of VDRF 2021 x 2
Successfully extubated
COPD-Gold stage IV
Chronic hypoxemic, on 2.5 L
Chronic hypercapnia, on BiPAP 15/5
Tried Trilogy Vent in past (did not tolerate)
Chronic radiation injury-chronic bronchiectasis history of non-Hodgkin lymphoma
Thickened pleura
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
R breast carcinoma status post lumpectomy and XRT, breast mass removed 2014
Recurrence with bleeding, status post hormonal therapy
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
Hypertension
Chronic back pain, Vertebral fracture, osteoporosis
Limited DNR (no CPR), would except mechanical ventilation
Plan
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
S/p intubation 09/14, extubated on 09/16
Venous blood gas shows compensated hypercapnia with normal pH.
She has had failure of BIPAP on prior admissions in past, compliance reviewed as OP and maintained >80%
I reviewed with office arrangements of BIPAP with [facility] rate to prevent PAP failure
She has been on NIV in past and reportedly could not tolerate
Continue BiPAP 15/5, nightly and when patient naps. At home patient and uses BiPAP after breakfast then again after lunch and again in the evening in addition to nightly use. Continue 4-hour break in between 2 hours of BiPAP therapy during the day.
Wheezing resolved, continue DuoNeb, budesonide as well as prednisone taper as ordered
Continue taper at discharge
Pulmonary fibrosis with chronic right-sided pleural thickening most prominent on RUL with Hx of XRT (2007 for NHL, 2016 for breast cancer)
Stable on imaging
Severe restrictive lung defect (spirometry from 09/2022 showed a post-BD FVC of 0.83L/30% predicted)
Physical deconditioning (mainly wheelchair bound), Pulmonary cachexia
Overall prognosis is poor, patient at high risk of respiratory failure and requiring intubation and mechanical ventilation
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
PT/OT - she is mainly wheelchair bound and physically deconditioned
GOC discussions have been carried out in past
Continue DVT ppx: Lovenox
Code status: No CPR, ok for intubation
Guarded prognosis. Last hospitalized for acute hypoxic/hypercapnic respiratory failure from 06/10 - 06/14/2024.
Of note, pt follows with us in the office. She has follow up scheduled with Dr. Vitale on 12/13/2024.
Discharge planning noted per team
Diagnostic Data
CXR 09/18/24- Interval removal of the endotracheal and enteric tubes. Small bilateral pleural effusions.
09/16/24- Endotracheal tube with tip 4.1 cm as above the john. Stable appearance of the chest compared to most recent radiograph of September 15, 2024 at 0452 hours.
CXR 06/10/24: No acute findings. Chronic right pleural thickening, extensive bronchiectasis. No change compared to 2022
Abdominal x-ray 11/09/21-Feeding tube overlies the left mid abdomen likely within the body of the stomach, nonobstructive bowel gas pattern
Pelvic and hip x-rays 11/08/21-acute nondisplaced intertrochanteric fracture of the left femur with 35� of medial angulation, lumbar scoliosis with compression fractures L2, L3 and L4, osteoporosis and right hip replacement
CT chest 05/2021� There is moderate pleural-parenchymal airspace disease with associated bronchiectasis in the right upper lobe with associated superior retraction of the right hilum. This has progressed in the interval since the prior study but more
likely is progression of chronic disease than superimposed acute inflammatory change. Similarly, there is pleural-parenchymal airspace disease at the medial right lung base which is more likely chronic than acute though it was not present on the
prior study.
CT chest 11/09/21-enlarged right ventricle, right atrium and diffuse cardiac enlargement, no aortic dissection or pulmonary embolism, collateral vessels and upper chest noted, worsening chronic lung changes with increased groundglass past patient's
both lung bases with associated pleural effusions, possible aspiration, endotracheal tube tip at john, new compression fractures of the thoracic spine, Doppler tube tip in the body of the stomach
CT head 11/08/21-no focal or acute intracranial abnormalities, mild diffuse cortical atrophy
PET 06/14/18:� pulmonary nodules, chronic R middle lobe atelectasis vs fibrosis
Echocardiogram 11/09/21-left ventricle small in size, hyperdynamic, EF 70%, stage I diastolic dysfunction, dilated right ventricle with akinesis of the mid free wall sparing the base and apex consistent with positive Rueda sign, moderate tricuspid
regurgitation, IVC is normal size and does not collapse of the patient is intubated and sedated with a PEEP of 5 cm, PA systolic estimated 58
Sputum culture-endotracheal 05/21/21- Ralstonia pickettii
Tracheal aspirate culture 10/03/19-Pseudomonas
Endotracheal Culture 10/02/19-Pseudomonas
All relevant imaging reviewed.
Total time spent today was 51 minutes for this encounter. Time includes reviewing laboratory test/imaging results, reviewing pertinent medical records, obtaining and reviewing medical history, performing an appropriate exam, ordering medications,
tests and procedures. Time also includes documentation of this encounter, coordinating patient care and communicating with other healthcare professionals. Total time does not include separately billed tests performed on this date of service.
Subjective Data
-
Date of Service:
Date of Service: September 22, 2024
Chief Complaint: Pulmonary Follow Up
Subjective:
Wearing BIPAP, awake
No complaints, limited speech due to PAP
Objective Data
Data Reviewed
Vital Signs / I&O / Oxygen:
Vital Signs
Temp Pulse Resp BP Pulse Ox
97.7 F 95 17 131/66 97
09/22/24 07:47 09/22/24 09:17 09/22/24 07:47 09/22/24 09:17 09/22/24 07:47
Intake and Output
09/21/24 09/22/24 09/23/24
06:59 06:59 06:59
Intake Total 790 / 790 0 / 0
Output Total 0 / 0 600 / 600
Balance 790 / 790 -600 / -600 0 / 0
SaO2 [A/C] 99
SaO2 97
Nasal Cannula flow liters per 2
minute
Physical Exam
General: Comfortable and Other (on BIPAP)
HEENT: Normocephalic and Anicteric
Cardiovascular: S1-S2, Regular Rhythm and Peripheral Edema (+1 lower extremity pitting edema)
Respiratory: Clear and Other (Prolonged expiration, no obvious wheezing on exam. No rhonchi. No stridor.)
GI: Soft, Non Distended, Non Tender and Normal Bowel Sounds
Neurology: Awake, Alert, Oriented and No Motor Deficits
Skin: Warm, Dry and Good Color
Labs/Micro/Reports
Lab Data
09/22/24 05:11
09/22/24 05:11
[2024-09-22 11:56] LABS: Glucose - Point of Care 104 mg/dl (70-99)
--- NOTE | 2024-09-22 13:05 | W.PN.HOSP.TC ---
Today's Communication/Plan
-
SNF placement pending
Continue BiPAP nightly as well as when patient naps during the day.Also can do 2 hours of BiPAP on and then 4 hours break alternating during the day.
Assessment / Plan
Assessment / Plan
Physical Exam
Gen-awake, alert, NAD
HEENT-NC, AT, anicteric, BiPAP mask on
Neck-supple
CV-reg, no M, +S1/S2
Lungs-Rales and rhonchi bilaterally
Abd-soft, NT, ND
Ext-no edema
Musculoskeletal-no cyanosis, clubbing
Skin-warm and dry, bruising on both shins
Assessment/Plan
84-year-old female admitted with hypercapnic encephalopathy, and acute on chronic respiratory failure. Intubated in the ER and subsequently extubated in the ICU 48 hours later. Extensive history of pulmonary disease. Uses BiPAP at nighttime at home.
Acute hypercapnic encephalopathy -presentation with decreased level of consciousness and unresponsiveness. Etiology of hypercapnic encephalopathy likely due to COPD exacerbation. Unclear how compliant she was at home with nightly BiPAP. Continue
BiPAP at night and when sleeping
Acute on chronic hypoxic/hypercapnic respiratory failure -intubated in the emergency room. Extubated 09/16. Currently stable on 2 L nasal cannula. Continue BiPAP at nighttime and when napping. This is her baseline.
2 view chest x-ray shows no significant change compared to prior. Possible chronic loculated right-sided pleural effusion or pleural thickening. Likely left apical pleural thickening.
Previously intubated twice in 2021, successfully extubated. Continue BiPAP at night and daytime when sleeping. Continue Prednisone taper.
Paroxysmal Supraventricular Tachycardia - treated with IV Lopressor. Continue Metoprolol Tartrate 50mg BID. Cardiology following.
Hyperkalemia -resolved.
Acute COPD exacerbation -baseline Gold stage IV COPD. Continue inhalers, steroids. Add azithromycin. Does have a productive cough now. Continue BiPAP as above.
Troponin elevation -suspect acute nonischemic myocardial injury due to critical illness, acute respiratory failure. No wall motion abnormalities on echocardiogram.
Leukocytosis -suspect due to steroids. Afebrile. Looks nontoxic. Monitor for now.
Essential hypertension -stable.
Chronic anemia -hemoglobin at baseline.
History of right breast cancer -treated with lumpectomy, radiation 2014. Had recurrence with bleeding, status post hormonal therapy.
History of NHL -treated with radiation, chemo, completed 2007.
Radiation pneumonitis -chronic pleural thickening.
Chronic bronchiectasis
History of legionnaires pneumonia 1974 complicated by right pneumothorax requiring bilateral chest tube placement.
Chronic low back pain/vertebral fracture/osteoporosis
Pulmonary cachexia -BMI 14.
Severe protein calorie malnutrition
Stage 1 Sacral Pressure Injury
Limited DNR -no CPR but patient agreeable to intubation. Confirmed with .
Disposition - anticipate discharge to SNF.
Anticipated Discharge: 24 - 48 hours
Subjective/Interval History
-
Date of Service: September 22, 2024
Patient was seen and examined. She denied any new symptoms or complaints.
Objective Data
-
Labs:
Laboratory Results
09/22/24
05:11
WBC 10.2
Hgb 11.3 L
Hct 37.4
Plt Count 276
Sodium 143
Potassium 3.9
Chloride 98
Carbon Dioxide 42 H
BUN 33 H
Creatinine 0.5 L
Glucose 106 H
Calcium 8.9
Vital Signs:
Vital Signs
Temp Pulse Resp BP Pulse Ox
97.8 F 71 16 121/59 89
09/22/24 10:58 09/22/24 11:22 09/22/24 11:22 09/22/24 10:58 09/22/24 11:22
I&O
09/21/24 09/22/24 09/23/24
06:59 06:59 06:59
Intake Total 790 / 790 0 / 0
Output Total 0 / 0 600 / 600
Balance 790 / 790 -600 / -600 0 / 0
[2024-09-22 16:24] LABS: Glucose - Point of Care 186 mg/dl (70-99)
--- NOTE | 2024-09-22 17:20 | CM ---
MD indicates pt ready for SNF.
Pt needs PT OT evals updated.
Pt Needs [employer] PPO auth .
Spoke with Vaishali Martinez bed available after auth .
Bipap and oxygen 3 liters Pox 98%.
Juan
report [phone]
fax [phone]
PLAN To Juan after auth
[2024-09-22] MEDS: NOVOLOG FLEXPEN-LOW RESISTANCE 1 UNITS SC (17:59)
[2024-09-22] MEDS: LOVENOX 30 MG SC (18:00)
[2024-09-22 21:10] LABS: Glucose - Point of Care 178 mg/dl (70-99)
[2024-09-22 21:27] LABS: O2 Saturation % 99.6 % (94-98); PO2 92 mmHg (83-108)
--- NOTE | 2024-09-22 21:30 | W.PN.UPDATE ---
Update Note
Progress Note Update
Rapid response called, patient unresponsive except to painful stimuli. Patient was sitting OOB in chair and had to be placed back in bed. BIPAP placed when patient returned to bed. Patient did not improve w/BIPAP, ordered ABG, CBC and BMP. ABG
result: pH 7.2, pCO2 >115, pO2 92, HCO3 50.0, ABG O2 sat 99.6. Patient transferred to ICU for closer monitoring and treatment.
[2024-09-22 21:34] LABS: PCO2 > 115 mmHg (32-35)
--- NOTE | 2024-09-22 22:01 | RR ---
While rounding on pt, this RN found pt sleeping in chair. Attempted to wake up patient. Patient only slightly arousable to painful stimuli. Rapid response called. Transferred to ICU.
A Rapid Response was called on this patient, please see Rapid Response form.
[2024-09-22 22:41] LABS: Hematocrit 37.4 % (37.0-47.0); Hemoglobin 10.8 g/dL (12.0-16.0); Mean Corp Hgb Conc. 28.9 g/dL (33.0-37.0); Mean Corpuscular Hgb 31.6 pg (27.0-31.0); Mean Corpuscular Volume 109.4 fL (81.0-99.0); Mean Platelet Volume 9.7 fL (7.4-10.4); Platelet Count 331 10^3/uL (130-400); Red Blood Cell Count 3.42 10^6/uL (4.20-5.40); Red Cell Dist. Width 13.1 % (11.5-14.5); White Blood Cell Count 10.1 10^3/uL (4.8-10.8)
[2024-09-22 22:50] LABS: INR 0.82; PT 11.7 Sec (11.4-14.6)
[2024-09-22 22:51] LABS: APTT 27.3 Sec (23.4-35.0)
[2024-09-22 22:52] LABS: Blood Urea Nitrogen 46 mg/dl (7-17); Chloride 95 mmol/L (98-107); Estimated Creatinine Clearance 34 ml/min; Glucose 177 mg/dl (70-99); Potassium 4.5 mmol/L (3.5-5.1); Sodium 143 mmol/L (135-145); eGFR > 60.00
[2024-09-22] MEDS: LOPRESSOR PO (22:53)
[2024-09-22 23:19] LABS: O2 Saturation % 97.9 % (94-98); PO2 83 mmHg (83-108)
[2024-09-22 23:24] LABS: Carbon Dioxide 49 mmol/L (22-30)
[2024-09-22 23:24] LABS: HCO3 47.2 mmol/L (21-28); PCO2 96 mmHg (32-35)
--- NOTE | 2024-09-22 23:53 | PTCARENOTE ---
Late note do to patient care, Pt was a rapid response on 3W, when we arrived she was obtunded on Bipap. VSS. Pupils equal and reactive. Withdraws from pain. NSR/SB on with short pauses. BP soft. Metoprolol held. B/L feet were purple, cap refill >3
sec, but had palpable pulses, feet elevated. IV lines placed by IV team and moved to ICU, where a midline was then inserted by IV team. Remains on Bipap 15/5 8Liters. Repeat ABG improved. Rectal temperature 65 degrees, bare hugger applied. Bladder
scan for 304ml, will continue to monitor. Sacrum with stage 1, foam applied. Q2 turns with pillows. Will continue with plan of care.
[2024-09-23] VITALS (37 sets, daily range): BP systolic 83–145; BP diastolic 38–78; PULSE 2–99; BMI 14.2
--- NOTE | 2024-09-23 00:40 | W.PN.UPDATE ---
Addendum entered and electronically signed by ROBERT Lozano 09/23/24 02:33:
0230 Patient now able to communicate with nurse.
Original Note:
Update Note
Progress Note Update
6846 Rapid response called for acute mental status change. Workup revealed acute hypercapnic respiratory failure. �ABG = 7.20/>115/ 95. �Patients started on Bipap 10/5 and transferred to the ICU unit. In the ICU, bipap increased to 16/5. Patient is
lethargic but following commands, moving all extremities. Open eyes to pain. �Verbal Response incomprehensible. Will continue to watch neuro�status closely. Low threshold to intubate. updated over phone.�
2330 Repeat ABG is improving 7.30/96/83. Patient neuro status slowing improving: Currently open eyes to verbal commands and obeying commands. �Verbal Response still incomprehensible. Continue with frequent monitoring.�
--- NOTE | 2024-09-23 03:30 | PTCARENOTE ---
Pt beginning to wake up, able to respond to with conversation. Remains on Bipap, will get labs in the morning.
[2024-09-23 04:56] LABS: B.E. 19.4 mmol/L; PO2 84 mmHg (83-108); pH 7.38 (7.35-7.45)
[2024-09-23 05:01] LABS: PCO2 81 mmHg (32-35)
[2024-09-23 05:02] LABS: HCO3 47.9 mmol/L (21-28)
[2024-09-23 05:18] LABS: Hematocrit 32.2 % (37.0-47.0); Hemoglobin 9.5 g/dL (12.0-16.0); Mean Corp Hgb Conc. 29.5 g/dL (33.0-37.0); Mean Corpuscular Hgb 31.4 pg (27.0-31.0); Mean Corpuscular Volume 106.3 fL (81.0-99.0); Mean Platelet Volume 10.2 fL (7.4-10.4); Platelet Count 290 10^3/uL (130-400); Red Blood Cell Count 3.03 10^6/uL (4.20-5.40); Red Cell Dist. Width 13.2 % (11.5-14.5); White Blood Cell Count 8.2 10^3/uL (4.8-10.8)
[2024-09-23 05:44] LABS: Blood Urea Nitrogen 46 mg/dl (7-17); Calcium 8.8 mg/dl (8.4-10.2); Chloride 96 mmol/L (98-107); Estimated Creatinine Clearance 46 ml/min; Glucose 99 mg/dl (70-99); Potassium 4.4 mmol/L (3.5-5.1); Sodium 143 mmol/L (135-145); eGFR > 60.00
[2024-09-23 06:20] LABS: Carbon Dioxide 47 mmol/L (22-30)
[2024-09-23] MEDS: DUONEB 3 ML INH ×4 (06:41→17:49)
[2024-09-23] MEDS: PULMICORT 0.5 MG INH ×2 (06:42→17:49)
--- NOTE | 2024-09-23 08:21 | W.PN.HOSP.TC ---
Today's Communication/Plan
-
Now DNR/DNI -- see studio director note
Continue BiPAP
Assessment / Plan
Assessment / Plan
Physical Exam
Gen-awake, alert, NAD
HEENT-NC, AT, anicteric, BiPAP mask on
Neck-supple
CV-reg, no M, +S1/S2
Lungs-Rales and rhonchi bilaterally
Abd-soft, NT, ND
Ext-no edema
Musculoskeletal-no cyanosis, clubbing
Skin-warm and dry, bruising on both shins
Assessment/Plan
84-year-old female admitted with hypercapnic encephalopathy, and acute on chronic respiratory failure. Intubated in the ER and subsequently extubated in the ICU 48 hours later. Extensive history of pulmonary disease. Uses BiPAP at nighttime at home.
Acute hypercapnic encephalopathy -presentation with decreased level of consciousness and unresponsiveness. Etiology of hypercapnic encephalopathy likely due to COPD exacerbation. Unclear how compliant she was at home with nightly BiPAP. Continue
BiPAP at night and when sleeping
Acute on chronic hypoxic/hypercapnic respiratory failure -intubated in the emergency room. Extubated 09/16. Continue BiPAP at nighttime and when napping. This is her baseline.
2 view chest x-ray shows no significant change compared to prior. Possible chronic loculated right-sided pleural effusion or pleural thickening. Likely left apical pleural thickening.
Previously intubated twice in 2021, successfully extubated. Transferred on 09/23/24 back to ICU due to hypercapnia and respiratory decompensation. Patient and her do not want long-term invasive ventilation or tracheostomy. Continue BiPAP
Paroxysmal Supraventricular Tachycardia - treated with IV Lopressor. Continue Metoprolol Tartrate 50mg BID. Cardiology following.
Hyperkalemia -resolved.
Acute COPD exacerbation -baseline Gold stage IV COPD. Continue inhalers, steroids. Add azithromycin. Does have a productive cough now. Continue BiPAP as above.
Troponin elevation -suspect acute nonischemic myocardial injury due to critical illness, acute respiratory failure. No wall motion abnormalities on echocardiogram.
Leukocytosis -suspect due to steroids. Afebrile. Looks nontoxic. Monitor for now.
Essential hypertension -stable.
Chronic anemia -hemoglobin at baseline.
History of right breast cancer -treated with lumpectomy, radiation 2014. Had recurrence with bleeding, status post hormonal therapy.
History of NHL -treated with radiation, chemo, completed 2007.
Radiation pneumonitis -chronic pleural thickening.
Chronic bronchiectasis
History of legionnaires pneumonia 1974 complicated by right pneumothorax requiring bilateral chest tube placement.
Chronic low back pain/vertebral fracture/osteoporosis
Pulmonary cachexia -BMI 14.
Severe protein calorie malnutrition
Stage 1 Sacral Pressure Injury
Code Status: DNR/DNI
Disposition: Anticipate discharge to SNF.
Anticipated Discharge: > 48 hours
Subjective/Interval History
-
Date of Service: September 23, 2024
Patient was seen and examined. Overnight, patient became and unresponsive with significant hypercapnia, needing transfer to ICU.
Objective Data
-
Labs:
Laboratory Results
09/22/24 09/22/24 09/22/24
21:21 22:27 23:12
WBC 10.1
Hgb 10.8 L
Hct 37.4
Plt Count 331
PT 11.7
INR 0.82
APTT 27.3
HCO3 50.0 H* 47.2 H*
Sodium 143
Potassium 4.5
Chloride 95 L
Carbon Dioxide 49 H
BUN 46 H
Creatinine 0.8
Glucose 177 H
Calcium 9.0
09/23/24 09/23/24
04:36 04:42
WBC 8.2
Hgb 9.5 L
Hct 32.2 L
Plt Count 290
PT
INR
APTT
HCO3 47.9 H*
Sodium 143
Potassium 4.4
Chloride 96 L
Carbon Dioxide 47 H
BUN 46 H
Creatinine 0.6
Glucose 99
Calcium 8.8
Vital Signs:
Vital Signs
Temp Pulse Resp BP Pulse Ox
98 F 99 26 129/63 95
09/23/24 03:32 09/23/24 06:45 09/23/24 06:00 09/23/24 06:00 09/23/24 06:45
I&O
09/22/24 09/23/24 09/24/24
06:59 06:59 06:59
Intake Total 240 / 240
Output Total 600 / 600 400 / 400
Balance -600 / -600 -160 / -160
[2024-09-23] MEDS: NOVOLOG FLEXPEN-LOW RESISTANCE SC (09:10)
[2024-09-23 09:16] LABS: Glucose - Point of Care 101 mg/dl (70-99)
[2024-09-23] MEDS: DELTASONE 30 MG PO (09:20)
[2024-09-23] MEDS: MIRALAX 17 GRAMS PO (09:20)
[2024-09-23] MEDS: VITAMIN B1 100 MG PO (09:20)
[2024-09-23] MEDS: LOPRESSOR 50 MG PO ×2 (09:20→20:18)
--- NOTE | 2024-09-23 09:30 | PTCARENOTE ---
Rec'd pt at 0800 sleeping- awakens to verbal stimuli and overall is alert and oriented just sleepy. Speech is soft but clear. Denies pain. Denies dizziness or headache. LYN but weakly at best. When fed breakfast did not try to assist with eating.
Handgrasps are weak. Skin is pale pink. Pt overall is cachetic. Foam dressings as documented on sacrum and heels. Respirs- Rec'd pt on Bipap 16/5 +6L with sats of 93-94%%- transitioned at 0845 to 2L nc with sats of 96-97%. Bs in general are
decreased throughout with fine crackles 1/4 up on the R. Respirs are shallow and in general tachypnic. Does get orthopnic with activity. Monitor SR with isolated bursts of SVT into the 150's that are self limiting. Rectal probe in place and temp
this am 99.1. + pulses as documented although feet tends to be dusky reddish/purple and sl cool to the touch. Nailbeds on feet with refill >2 sec. Denies chest pain. VS as documented. Tr LE edema. Abd is soft with + BS. Fed 2gm Na++ breakfast very
limited appetite-only ate about 25%. Took pills with applesauce. Denies need to void. Had been st cathed at 0600. Capped int intact R wrist. R arm midline site wnl. Turned and repositioned. Mouth and skin care given. Call ochoa in reach. Plan of care
reviewed with pt.
--- NOTE | 2024-09-23 10:30 | PTCARENOTE ---
Pt denies need to void. Bladder scanned for 70 mls of urine.
--- NOTE | 2024-09-23 11:20 | PTCARENOTE ---
ETCO2 placed on pt and readings anywhere from 11-20. Overall respirs are shallow and tachypnic but does tend to get more orthopnic with any activity- like turning/moving. Overall remains drowsy but arousable. Dr. Carlin in to see pt and pt placed
back on Bipap at 1100 12/6 + 6L. BS remain decreased and currently more coarse on the L side. Sats currently are 92%. Complete CHG bath given. Silicone foam dressings placed on bony prominences on the back. Turned and repositioned. Call ochoa in
reach.
[2024-09-23 11:52] LABS: Glucose - Point of Care 151 mg/dl (70-99)
[2024-09-23] MEDS: FLUSH (NSS) 1 FLUSH IV (13:00)
[2024-09-23] MEDS: SOLU-MEDROL PF 40 MG IV (13:00)
[2024-09-23] MEDS: NOVOLOG FLEXPEN-LOW RESISTANCE 1 UNITS SC (13:01)
--- NOTE | 2024-09-23 13:11 | W.PN.INTV ---
Addendum entered and electronically signed by Anna Carlin MD 09/23/24 13:39:
Goals of care: 09/23/2024.
Met with patient's Alex at bedside. Updated about patient's current condition. Patient is able to tolerate being off BiPAP only for brief period of time. We discussed the risk of intubation. We also discussed the option of long-term
invasive ventilation including tracheostomy. Patient's and patient are very clear and their preference not to pursue long-term invasive ventilation or tracheostomy. After further discussion CODE STATUS was changed to DNR/DNI. Patient's
requested Dr. Shaw input as well who is primary engine inspector as outpatient. Case was discussed with Dr. Shaw who agreed that the recurrent intubation and long-term tracheostomy is not in patient's best interest considering her
advanced age and end-stage COPD with pulmonary cachexia. Patient's BMI is only 14.2 and she weighs 38.6 kg.
- CODE STATUS updated to DNR/DNI
- Will continue to monitor closely in the ICU for now
- If patient continues to fail BiPAP therapy, will discuss further regarding pursuing comfort focused care.
Original Note:
Today's Communication / Plan
Recommendations
- DC prednisone, switch to Solu-Medrol 40 mg IV daily
- Continue BiPAP for 2 hours followed by 2-hour break throughout the day. Continue nightly BiPAP and as needed
- Goals of care discussion
Assessment
-
84-year-old F former tobacco smoker (quit 2002) with PMHx of advanced COPD with bronchiectasis/emphysema on chronic prednisone, COPD-cachexia, pulmonary fibrosis with Hx of XRT (2007 for NHL, 2017 for breast cancer), chronic cough, chronic hypoxic
respiratory failure on home O2 (2-4L/min), chronic hypercapnic respiratory failure on nocturnal BiPAP 15/5cmH2O, Hx of breast cancer s/p hormonal therapy + XRT, Hx of pneumonia, Hx of shingles, cataracts, HTN and Hx of pleurisy who p/w AMS and SOB.
Initially in the ER, she was afebrile to 99.2F, MS 122, RR 35, BP 133/84, and was saturating 89% on 2L/min. Blood gas showed acute on chronic hypercapnea with pH 7.23 with pCO2 108. K level was 5.6, Cr 1 (baseline: 0.4), glucose 209, troponin
0.052, proBNP 1070, and UA without signs of UTI. No evidence of an acute pneumonia on CXR. She was given 500cc NS 0.9%, and sedated with fentanyl and then admitted to ICU. While in ER, she developed ST elevation in infero-lateral leads.
Cardiology consulted, stat echo showed no WMA. 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 Filling Hauler consulted for additional management/recommendations.
Conditions present prior to admission:
History of severe lung disease including radiation fibrosis, severe bronchiectasis
Mixed obstructive/restrictive lung disease
FVC 0.8/31%, ratio 56
Patient declined more aggressive therapy (vest therapy/nebulizers/chronic antibiotics) did not tolerate azithromycin
History of VDRF 2021 x 2
Successfully extubated
COPD-Gold stage IV
Chronic hypoxemic, on 2.5 L
Chronic hypercapnia, on BiPAP /
Tried Trilogy Vent in past (did not tolerate)
Chronic radiation injury-chronic bronchiectasis history of non-Hodgkin lymphoma
Thickened pleura
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
R breast carcinoma status post lumpectomy and XRT, breast mass removed 2014
Recurrence with bleeding, status post hormonal therapy
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
Hypertension
Chronic back pain, Vertebral fracture, osteoporosis
Limited DNR (no CPR), would except mechanical ventilation
#1. 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
-S/p intubation 09/14, extubated on 09/16
-Patient transferred out of ICU on 09/21, readmitted to ICU on 09/22 after rapid response was called for altered mental status, hypercapnic respiratory failure which responded to BiPAP therapy.
-Venous blood gas shows compensated hypercapnia with normal pH.
-Minimal end expiratory wheezing noted. Continue DuoNeb 4 times daily, budesonide twice daily, switch prednisone to IV Solu-Medrol for now
-Continue BiPAP 2 hours on followed by 2 hours off during daytime and continue at nighttime
-Overall prognosis is poor, patient at high risk of respiratory failure and requiring intubation and mechanical ventilation
-Patient unfortunately has advanced COPD and is failing noninvasive ventilation. Will meet with patient's family regarding goals of care discussions. If patient ends up on mechanical ventilation, she will likely need a tracheostomy and long-term
invasive ventilation as she is clearly failing BiPAP therapy. She is only able to stay off BiPAP for a short period of time before she needs to be back on or develops worsening hypercapnia.
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
Other pulmonary co-morbidities:
#Pulmonary fibrosis with chronic right-sided pleural thickening most prominent on RUL with Hx of XRT (2007 for NHL, 2017 for breast cancer)
#Severe restrictive lung defect (spirometry from 09/2022 showed a post-BD FVC of 0.83L/30% predicted)
#Physical deconditioning (mainly wheelchair bound), Pulmonary cachexia
- PT/OT - she is mainly wheelchair bound and physically deconditioned
- DVT ppx: Lovenox
Code status: No CPR, ok for intubation
Guarded prognosis. Last hospitalized for acute hypoxic/hypercapnic respiratory failure from 06/10 - 06/14/2024.
Of note, pt follows with us in the office. She has follow up scheduled with Dr. Vitale on 12/13/2024.
Critical Care time 58 mins -- The patient is admitted for acute critical illness for the treatment of vital organ failure and/or prevention of further life-threatening conditions. Total care includes time spent in review of history, physical exam,
medications, hemodynamic/ventilator parameters, laboratory data, imaging and discussion with house staff, pharmacy, respiratory therapy, pitch filler, and nursing.
Data:
CXR 09/18/24- Interval removal of the endotracheal and enteric tubes. Small bilateral pleural effusions.
09/16/24- Endotracheal tube with tip 4.1 cm as above the john. Stable appearance of the chest compared to most recent radiograph of September 15, 2024 at 0452 hours.
CXR 06/10/24: No acute findings. Chronic right pleural thickening, extensive bronchiectasis. No change compared to 2022
Abdominal x-ray 11/09/21-Feeding tube overlies the left mid abdomen likely within the body of the stomach, nonobstructive bowel gas pattern
Pelvic and hip x-rays 11/08/21-acute nondisplaced intertrochanteric fracture of the left femur with 35� of medial angulation, lumbar scoliosis with compression fractures L2, L3 and L4, osteoporosis and right hip replacement
CT chest 05/2021� There is moderate pleural-parenchymal airspace disease with associated bronchiectasis in the right upper lobe with associated superior retraction of the right hilum. This has progressed in the interval since the prior study but more
likely is progression of chronic disease than superimposed acute inflammatory change. Similarly, there is pleural-parenchymal airspace disease at the medial right lung base which is more likely chronic than acute though it was not present on the
prior study.
CT chest 11/09/21-enlarged right ventricle, right atrium and diffuse cardiac enlargement, no aortic dissection or pulmonary embolism, collateral vessels and upper chest noted, worsening chronic lung changes with increased groundglass past patient's
both lung bases with associated pleural effusions, possible aspiration, endotracheal tube tip at john, new compression fractures of the thoracic spine, Doppler tube tip in the body of the stomach
CT head 11/08/21-no focal or acute intracranial abnormalities, mild diffuse cortical atrophy
PET 06/14/18:� pulmonary nodules, chronic R middle lobe atelectasis vs fibrosis
Echocardiogram 11/09/21-left ventricle small in size, hyperdynamic, EF 70%, stage I diastolic dysfunction, dilated right ventricle with akinesis of the mid free wall sparing the base and apex consistent with positive Rueda sign, moderate tricuspid
regurgitation, IVC is normal size and does not collapse of the patient is intubated and sedated with a PEEP of 5 cm, PA systolic estimated 58
Sputum culture-endotracheal 05/21/21- Ralstonia pickettii
Tracheal aspirate culture 10/03/19-Pseudomonas
Endotracheal Culture 10/02/19-Pseudomonas
All relevant imaging reviewed.
Subjective Dataa
Subjective Data
Date of Service:
Date of Service: September 23, 2024
Chief Complaint: Filling Hauler Follow Up
Subjective:
Patient awake and alert this morning and seems to have somewhat increased work of breathing.
Review of Systems
Genitourinary: Other (Reports mild dyspnea otherwise no new complaints.)
Objective Data
Data Reviewed
Vital Signs / I&O / Oxygen:
Vital Signs
Temp Pulse Resp BP Pulse Ox
99.0 F 64 28 120/38 88
09/23/24 12:00 09/23/24 12:00 09/23/24 12:00 09/23/24 12:00 09/23/24 12:00
Intake and Output
09/22/24 09/23/24 09/24/24
06:59 06:59 06:59
Intake Total 240 / 240 150 / 150
Output Total 600 / 600 400 / 400
Balance -600 / -600 -160 / -160 150 / 150
SaO2 [A/C] 99
SaO2 88
Nasal Cannula flow liters per 2
minute
Physical Exam
General: Comfortable, Pain (None), Chills (None) and Sweats (negative)
HEENT: Normocephalic, Anicteric and Moist Mucous Membranes
Cardiovascular: S1-S2 and Regular Rhythm
Respiratory: Wheeze (Mild end expiratory wheezing on exam), Crackles ([place] bilaterally in the posterior lung dc and right side on anterior lung field), Rhonchi (Bilaterally on posterior lung dc), Non-Labored Respirations and Stridor
(negative)
GI: Soft, Non Distended, Non Tender and Normal Bowel Sounds
Neurology: Awake, Alert, Tremors (None) and Other (Sleepy but easily arousable and answering questions appropriately)
Skin: Warm and Dry
Labs/Micro/Reports
Lab Data
09/23/24 04:36
09/23/24 04:36
Laboratory Results
09/22/24 09/22/24 09/22/24
21:21 22:27 23:12
PT 11.7
INR 0.82
APTT 27.3
pH 7.20 L 7.30 L
pCO2 > 115 H* 96 H*
pO2 92 83
HCO3 50.0 H* 47.2 H*
O2 Delivery Level
09/23/24
04:42
PT
INR
APTT
pH 7.38
pCO2 81 H*
pO2 84
HCO3 47.9 H*
O2 Delivery Level
--- NOTE | 2024-09-23 13:45 | PTCARENOTE ---
Solumedrol 40 mg IV given at 1300 per MD order. Pt taken off of Bipap at 1315 to eat lunch. Overall remains drowsy but arousable to name. Tends to keep her eyes shut unless directed to open them. Fed a small amt of lunch about 20 % but did take
several sips of her Ensure Enlive. Sats on 2l nc currently at 95%. Cannula with ETCO measurement in place readings anywhere from 26-40. Respirs remain very shallow and overall tachypnic with rates mostly in the 30's. at the bedside and
Tesfaye in and had a long discussion regarding goals of care. Pt made a DNR- will apply purple bracelet. Pt aware that we are continuing to treat her but if the situation arises that she would need a breathing tube we would not put it in and instead
work to keep her comfortable. Pt demonstrated understanding with the plan. Call ochoa in reach.
--- NOTE | 2024-09-23 15:47 | CM ---
CXR tiny B/L pleural effusions. last PM Rapid response with hypercapnic respiratory failure. Back to ICU, BiPap. DIscharge Plan of Care: [facility].
--- NOTE | 2024-09-23 16:15 | PTCARENOTE ---
Dozing with Bipap on. Does awaken to verbal stimuli. Denies pain. Sats on Bipap are 96% currently. VS as documented. Overall no changes in assessment. Has not voided. Bladder scanned for 187 mls of urine. Once bipap off again will encourage oral
intake although overall appetite has been very limited today. Turned and repositioned. Skin care given. Call ochoa in reach. Pts at the bedside. Purple DNR bracelet placed on pt.
[2024-09-23 17:17] LABS: Glucose - Point of Care 292 mg/dl (70-99)
[2024-09-23] MEDS: NOVOLOG FLEXPEN-LOW RESISTANCE 3 UNITS SC (17:19)
[2024-09-23] MEDS: LOVENOX 30 MG SC (18:37)
--- NOTE | 2024-09-23 18:40 | PTCARENOTE ---
Fed dinner but only ate 1 cup of jello and refused anything else to eat or drink despite encouragement from her and staff -stating ' I don't want anymore'. Repositioned. No difficulty noted with swallowing. Was on 2l for dinner (since about
164) and currently put back on Bipap 16/5 +4L with sats of 92%. Overall remains with flat affect and drowsy. Call ochoa in reach.
--- NOTE | 2024-09-23 21:02 | PTCARENOTE ---
Patient received in bed lethargic. Arouses to verbal commands. Oriented to self and time. MAEx4. bilateral hand tremors. Plan of care for the shift reviewed with the patient. Pt denies pain at this time. Sinus rhythm on the monitor. Rectal probe in
place with temp 97.6 F. The patient's feet are redish purple with bounding pulses. Shallow breath on Bipap 16/5 & 6L. SpO2 at 92%. Bipap removed for medication administration and patient placed on 2L/nc. SpO2 at 97%. Pills with applesauce. Abd is
soft and nontender. +BS. Mouth care provided. Patient turned and repositioned. Bed alarm in use. Call ochoa and personal belongings are within reach.
[2024-09-23 22:02] LABS: Glucose - Point of Care 252 mg/dl (70-99)
[2024-09-23] MEDS: NOVOLOG FLEXPEN 6 UNITS SC (22:24)
[2024-09-24] VITALS (18 sets, daily range): BP systolic 120–148; BP diastolic 47–85; PULSE 2–78; BMI 14.2
--- NOTE | 2024-09-24 00:46 | PTCARENOTE ---
Patient reassessed. Awake and oriented to self. No verbalization of pain or discomfort. BiPaP remains in use . Safety measures maintained. Turns and repositioning continued.
[2024-09-24 03:43] LABS: Hemoglobin 9.2 g/dL (12.0-16.0); Mean Corp Hgb Conc. 29.7 g/dL (33.0-37.0); Mean Corpuscular Hgb 31.2 pg (27.0-31.0); Mean Corpuscular Volume 105.1 fL (81.0-99.0); Mean Platelet Volume 9.7 fL (7.4-10.4); Platelet Count 275 10^3/uL (130-400); Red Blood Cell Count 2.95 10^6/uL (4.20-5.40); Red Cell Dist. Width 13.1 % (11.5-14.5); White Blood Cell Count 8.2 10^3/uL (4.8-10.8)
[2024-09-24 04:09] LABS: Blood Urea Nitrogen 37 mg/dl (7-17); Calcium 8.9 mg/dl (8.4-10.2); Chloride 96 mmol/L (98-107); Estimated Creatinine Clearance 44 ml/min; Glucose 83 mg/dl (70-99); Potassium 3.8 mmol/L (3.5-5.1); Sodium 145 mmol/L (135-145); eGFR > 60.00
[2024-09-24 04:31] LABS: Carbon Dioxide 45 mmol/L (22-30)
[2024-09-24] MEDS: PULMICORT 0.5 MG INH ×2 (07:25→18:32)
[2024-09-24] MEDS: DUONEB 3 ML INH ×4 (07:25→17:48)
[2024-09-24 07:50] LABS: Glucose - Point of Care 102 mg/dl (70-99)
[2024-09-24] MEDS: NOVOLOG FLEXPEN-MODERATE RESISTANCE SC ×2 (08:00→17:19)
--- NOTE | 2024-09-24 08:00 | PTCARENOTE ---
Assumed care of patient. Pt rec'd A&Ox3. Pleasant. Denies any pain. Able to LYN's but weak. Assists w/ repositioning. S1 S2 reg w/ NSR on monitor. +PP. +2 TERESITA edema. Trace generalized edema. On 2L N/C...sats 98%. Lungs diminished...left
anterior clear....right anterior w/ coarse crackles throughout. Posteriorly scattered crackles throughout. +NELSON. Orthopneic. Productive cough for pale greenish sputum. Abdomen round...+BS. Breakfast ordered. Takes po meds whole in applesauce.
No void this am yet...incontinent of yellow urine on nightshift. Skin pale in color. Sacral optifoam intact. On 2gram Na+ diet w/ thin liquids. Accuchecks ac & hs. Peripheral sites and right midline noted. VS documented. Call ochoa within
reach. Will continue to monitor.
[2024-09-24] MEDS: LOPRESSOR 50 MG PO ×2 (08:36→19:21)
[2024-09-24] MEDS: MIRALAX PO (08:36)
[2024-09-24] MEDS: SOLU-MEDROL PF 40 MG IV (08:37)
[2024-09-24] MEDS: VITAMIN B1 100 MG PO (08:37)
--- NOTE | 2024-09-24 09:59 | W.PN.INTV ---
Today's Communication / Plan
Recommendations
- Continue IV Solu-Medrol for today, will switch to oral prednisone on 09/25
- Continue nightly BiPAP
- During daytime, continue BiPAP for 2 hours followed by 2-hour break.
- Patient can be transferred out of ICU, pulmonary service will continue to follow along.
Assessment
-
84-year-old F former tobacco smoker (quit 2002) with PMHx of advanced COPD with bronchiectasis/emphysema on chronic prednisone, COPD-cachexia, pulmonary fibrosis with Hx of XRT (2007 for NHL, 2017 for breast cancer), chronic cough, chronic hypoxic
respiratory failure on home O2 (2-4L/min), chronic hypercapnic respiratory failure on nocturnal BiPAP 15/5cmH2O, Hx of breast cancer s/p hormonal therapy + XRT, Hx of pneumonia, Hx of shingles, cataracts, HTN and Hx of pleurisy who p/w AMS and SOB.
Initially in the ER, she was afebrile to 99.2F, [place] 122, RR 35, BP 133/84, and was saturating 89% on 2L/min. Blood gas showed acute on chronic hypercapnea with pH 7.23 with pCO2 108. K level was 5.6, Cr 1 (baseline: 0.4), glucose 209, troponin
0.052, proBNP 1070, and UA without signs of UTI. No evidence of an acute pneumonia on CXR. She was given 500cc NS 0.9%, and sedated with fentanyl and then admitted to ICU. While in ER, she developed ST elevation in infero-lateral leads.
Cardiology consulted, stat echo showed no WMA. Not considered appropriate for labor and delivery registered nurse at this time. Compressor Operator Adjuster consulted for additional management/recommendations.
Conditions present prior to admission:
History of severe lung disease including radiation fibrosis, severe bronchiectasis
Mixed obstructive/restrictive lung disease
FVC 0.8/31%, ratio 56
Patient declined more aggressive therapy (vest therapy/nebulizers/chronic antibiotics) did not tolerate azithromycin
History of VDRF 2021 x 2
Successfully extubated
COPD-Gold stage IV
Chronic hypoxemic, on 2.5 L
Chronic hypercapnia, on BiPAP 15/09
Tried Trilogy Vent in past (did not tolerate)
Chronic radiation injury-chronic bronchiectasis history of non-Hodgkin lymphoma
Thickened pleura
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
R breast carcinoma status post lumpectomy and XRT, breast mass removed 2014
Recurrence with bleeding, status post hormonal therapy
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
Hypertension
Chronic back pain, Vertebral fracture, osteoporosis
Limited DNR (no CPR), would except mechanical ventilation
#1. 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
-S/p intubation 09/14, extubated on 09/16
-Patient transferred out of ICU on 09/21, readmitted to ICU on 09/22 after rapid response was called for altered mental status, hypercapnic respiratory failure which responded to BiPAP therapy.
-Venous blood gas shows compensated hypercapnia with normal pH.
-Minimal end expiratory wheezing was noted. Continue DuoNeb 4 times daily, budesonide twice daily, switched prednisone to IV Solu-Medrol for now
-Continue BiPAP 2 hours on followed by 2 hours off during daytime and continue at nighttime
-Patient unfortunately has advanced COPD and is failing noninvasive ventilation. DNR/DNI now per goals of care discussion with the on 09/23.
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
Other pulmonary co-morbidities:
#Pulmonary fibrosis with chronic right-sided pleural thickening most prominent on RUL with Hx of XRT (2007 for NHL, 2016 for breast cancer)
#Severe restrictive lung defect (spirometry from 09/2022 showed a post-BD FVC of 0.83L/30% predicted)
#Physical deconditioning (mainly wheelchair bound), Pulmonary cachexia
- PT/OT - she is mainly wheelchair bound and physically deconditioned
- DVT ppx: Lovenox
Code status: DNR/DNI
Guarded prognosis. Last hospitalized for acute hypoxic/hypercapnic respiratory failure from 06/10 - 06/14/2024.
Of note, pt follows with us in the office. She has follow up scheduled with Dr. Vitale on 12/13/2024.
Critical Care time 43 mins -- The patient is admitted for acute critical illness for the treatment of vital organ failure and/or prevention of further life-threatening conditions. Total care includes time spent in review of history, physical exam,
medications, hemodynamic/ventilator parameters, laboratory data, imaging and discussion with house staff, pharmacy, respiratory therapy, casino runner, and nursing.
Data:
CXR 09/18/24- Interval removal of the endotracheal and enteric tubes. Small bilateral pleural effusions.
09/16/24- Endotracheal tube with tip 4.1 cm as above the john. Stable appearance of the chest compared to most recent radiograph of September 15, 2024 at 0452 hours.
CXR 06/10/24: No acute findings. Chronic right pleural thickening, extensive bronchiectasis. No change compared to 2022
Abdominal x-ray 11/09/21-Feeding tube overlies the left mid abdomen likely within the body of the stomach, nonobstructive bowel gas pattern
Pelvic and hip x-rays 11/08/21-acute nondisplaced intertrochanteric fracture of the left femur with 35� of medial angulation, lumbar scoliosis with compression fractures L2, L3 and L4, osteoporosis and right hip replacement
CT chest 05/2021� There is moderate pleural-parenchymal airspace disease with associated bronchiectasis in the right upper lobe with associated superior retraction of the right hilum. This has progressed in the interval since the prior study but more
likely is progression of chronic disease than superimposed acute inflammatory change. Similarly, there is pleural-parenchymal airspace disease at the medial right lung base which is more likely chronic than acute though it was not present on the
prior study.
CT chest 11/09/21-enlarged right ventricle, right atrium and diffuse cardiac enlargement, no aortic dissection or pulmonary embolism, collateral vessels and upper chest noted, worsening chronic lung changes with increased groundglass past patient's
both lung bases with associated pleural effusions, possible aspiration, endotracheal tube tip at john, new compression fractures of the thoracic spine, Doppler tube tip in the body of the stomach
CT head 11/08/21-no focal or acute intracranial abnormalities, mild diffuse cortical atrophy
PET 06/14/18:� pulmonary nodules, chronic R middle lobe atelectasis vs fibrosis
Echocardiogram 11/09/21-left ventricle small in size, hyperdynamic, EF 70%, stage I diastolic dysfunction, dilated right ventricle with akinesis of the mid free wall sparing the base and apex consistent with positive Rueda sign, moderate tricuspid
regurgitation, IVC is normal size and does not collapse of the patient is intubated and sedated with a PEEP of 5 cm, PA systolic estimated 58
Sputum culture-endotracheal 05/21/21- Ralstonia pickettii
Tracheal aspirate culture 10/03/19-Pseudomonas
Endotracheal Culture 10/02/19-Pseudomonas
All relevant imaging reviewed.
Subjective Dataa
Subjective Data
Date of Service:
Date of Service: September 24, 2024
Chief Complaint: Compressor Operator Adjuster Follow Up
Objective Data
Data Reviewed
Vital Signs / I&O / Oxygen:
Vital Signs
Temp Pulse Resp BP Pulse Ox
98.8 F 73 27 137/58 96
09/24/24 07:39 09/24/24 09:30 09/24/24 09:30 09/24/24 09:00 09/24/24 09:00
Intake and Output
09/23/24 09/24/24 09/25/24
06:59 06:59 06:59
Intake Total 240 / 240 400 / 400 120 / 120
Output Total 400 / 400
Balance -160 / -160 400 / 400 120 / 120
SaO2 [A/C] 99
SaO2 96
Nasal Cannula flow liters per 2
minute
Physical Exam
General: Comfortable, Pain (None), Chills (None) and Sweats (negative)
HEENT: Normocephalic, Anicteric and Moist Mucous Membranes
Cardiovascular: S1-S2 and Regular Rhythm
Respiratory: Wheeze (No wheezing ), Crackles ([place] bilaterally in the posterior lung dc and right side on anterior lung field), Rhonchi (Bilaterally on posterior lung dc), Non-Labored Respirations and Stridor (negative)
GI: Soft, Non Distended, Non Tender and Normal Bowel Sounds
Neurology: Awake, Alert, Tremors (None) and Other (Sleepy but easily arousable and answering questions appropriately)
Skin: Warm and Dry
Labs/Micro/Reports
Lab Data
09/24/24 03:27
09/24/24 03:27
--- NOTE | 2024-09-24 11:11 | PTCARENOTE ---
Report called to RN on 2nd floor. Pt to transfer to Room 2136.
[2024-09-24 12:28] LABS: Glucose - Point of Care 239 mg/dl (70-99)
[2024-09-24] MEDS: NOVOLOG FLEXPEN-MODERATE RESISTANCE 3 UNITS SC (12:28)
--- NOTE | 2024-09-24 15:21 | W.PN.HOSP.TC ---
Today's Communication/Plan
-
Continue Solumedrol.
Continue BiPAP 2 hours on followed by 2 hours off during daytime and continue at nighttime.
Assessment / Plan
Assessment / Plan
Physical Exam
Gen-awake, alert, NAD
HEENT-NC, AT, anicteric, BiPAP mask on
Neck-supple
CV-reg, no M, +S1/S2
Lungs-Rales and rhonchi bilaterally. Some wheezing bilaterally.
Abd-soft, NT, ND
Ext-no edema
Musculoskeletal-no cyanosis, clubbing
Skin-warm and dry, bruising on both shins
Assessment/Plan
84-year-old female admitted with hypercapnic encephalopathy, and acute on chronic respiratory failure. Intubated in the ER and subsequently extubated in the ICU 48 hours later. Extensive history of pulmonary disease. Uses BiPAP at nighttime at home.
Acute hypercapnic encephalopathy -presentation with decreased level of consciousness and unresponsiveness. Etiology of hypercapnic encephalopathy likely due to COPD exacerbation. Unclear how compliant she was at home with nightly BiPAP. Continue
BiPAP at night and when sleeping
Acute on chronic hypoxic/hypercapnic respiratory failure -intubated in the emergency room. S/p intubation 09/14, extubated 09/16. Patient transferred out of ICU on 09/21, readmitted to ICU on 09/22 after rapid response was called for altered mental
status, hypercapnic respiratory failure which responded to BiPAP therapy. Venous blood gas shows compensated hypercapnia with normal pH. Previously intubated twice in 2021, successfully extubated. Patient and her do not want long-term
invasive ventilation or tracheostomy. Solumedrol started. Continue BiPAP 2 hours on followed by 2 hours off during daytime and continue at nighttime
Paroxysmal Supraventricular Tachycardia - treated with IV Lopressor. Continue Metoprolol Tartrate 50mg BID. Cardiology saw the patient.
Hyperkalemia -resolved.
Acute COPD exacerbation -baseline Gold stage IV COPD. Continue inhalers, steroids. Add azithromycin. Does have a productive cough now. Continue BiPAP as above.
Troponin elevation -suspect acute nonischemic myocardial injury due to critical illness, acute respiratory failure. No wall motion abnormalities on echocardiogram.
Leukocytosis - RESOLVED - suspect due to steroids. Afebrile. Looks nontoxic. Monitor for now.
Essential hypertension -stable.
Chronic anemia -hemoglobin at baseline.
History of right breast cancer -treated with lumpectomy, radiation 2014. Had recurrence with bleeding, status post hormonal therapy.
History of NHL -treated with radiation, chemo, completed 2007.
Radiation pneumonitis -chronic pleural thickening.
Chronic bronchiectasis
History of legionnaires pneumonia 1974 complicated by right pneumothorax requiring bilateral chest tube placement.
Chronic low back pain/vertebral fracture/osteoporosis
Pulmonary cachexia -BMI 14.
Severe protein calorie malnutrition
Stage 1 Sacral Pressure Injury
Code Status: DNR/DNI
Disposition: Anticipate discharge to SNF.
Anticipated Discharge: > 48 hours
Subjective/Interval History
-
Date of Service: September 24, 2024
Patient was seen and examined. She denied any complaints.
Objective Data
-
Labs:
Laboratory Results
09/24/24
03:27
WBC 8.2
Hgb 9.2 L
Hct 31.0 L
Plt Count 275
Sodium 145
Potassium 3.8
Chloride 96 L
Carbon Dioxide 45 H
BUN 37 H
Creatinine 0.5 L
Glucose 83
Calcium 8.9
Vital Signs:
Vital Signs
Temp Pulse Resp BP Pulse Ox
98.2 F 74 24 141/62 95
09/24/24 15:00 09/24/24 15:14 09/24/24 15:14 09/24/24 15:00 09/24/24 15:14
I&O
09/23/24 09/24/24 09/25/24
06:59 06:59 06:59
Intake Total 240 / 240 400 / 400 120 / 120
Output Total 400 / 400
Balance -160 / -160 400 / 400 120 / 120
[2024-09-24 16:35] LABS: Glucose - Point of Care 117 mg/dl (70-99)
[2024-09-24] MEDS: LOVENOX 30 MG SC (17:19)
[2024-09-24 21:59] LABS: Glucose - Point of Care 257 mg/dl (70-99)
[2024-09-25 03:28] VITALS: BP 138/64
[2024-09-25 03:33] VITALS: PULSE 2
[2024-09-25 06:00] VITALS: BMI 13.9
[2024-09-25] MEDS: DUONEB 3 ML INH (07:26)
[2024-09-25] MEDS: PULMICORT 0.5 MG INH (07:26)
[2024-09-25 07:30] VITALS: BP 151/65
[2024-09-25] MEDS: SOLU-MEDROL PF 40 MG IV (07:50)
[2024-09-25] MEDS: MIRALAX PO (07:50)
[2024-09-25] MEDS: NOVOLOG FLEXPEN-MODERATE RESISTANCE SC ×2 (07:54→11:15)
[2024-09-25 07:55] LABS: Glucose - Point of Care 99 mg/dl (70-99)
[2024-09-25] MEDS: LOPRESSOR 50 MG PO (09:44)
[2024-09-25] MEDS: VITAMIN B1 100 MG PO (09:44)
--- NOTE | 2024-09-25 10:35 | PTCARENOTE ---
Addendum entered by Digna Toth RN 09/25/24 11:06:
Pulm at bedside to discuss with , patient transitioned to comfort care, PRN IV morphine ordered, patient to stay off BiPAP and to be medicated for dyspnea per MD. Patient awake at this time, AAOX3, dyspnea at rest, tachypneic, orthopneic,
wearing 2L NC, repositioned, inc of urine. Patient made aware of PRN morphine for trouble breathing and states she does not want it at this time. at bedside updated on plan of care.
Original Note:
Patient drowsy/lethargic this AM, off BiPAP at 0630 per shift stacker RN with plan per order to have patient on BiPAP q2hr off q2hr during day; patient placed back on BiPAP at 0745 by respiratory therapist d/t patient appearing somnolent. Patient woke
up briefly during IV solumedrol admin while on BiPAP, able to communicate to this RN what she would like for breakfast and that she is comfortable. BiPAP removed at 1000, patient lethargic, wakes briefly to sternal rub but unable to answer
orientation questions for this RN or take scheduled AM PO medications. POX 90-93% on 2L, HR NSR in 70s on tele monitor. Lung sounds coarse throughout. Bladder scan 226ml. This RN communicated with MD, BiPAP placed back on patient by resp, settings
adjusted per MD, ABG and labs ordered per MD.
[2024-09-25 10:55] LABS: B.E. 23.8 mmol/L; O2 Saturation % 96.9 % (94-98); PO2 64 mmHg (83-108); pH 7.43 (7.35-7.45)
[2024-09-25 10:59] LABS: PCO2 78 mmHg (32-35)
[2024-09-25 11:00] LABS: HCO3 51.8 mmol/L (21-28)
[2024-09-25 11:03] LABS: % Basophils 0.2 % (0-2); % Eosinophils 0.3 % (0-6); % Immature Granulocytes 1.6 % (0-0.5); % Lymphocytes 4.7 % (20.5-51.1); % Monocytes 3.4 % (1.7-9.3); % Neutrophils 89.8 % (42.2-75.2); Absolute Immature Granulocytes 0.2 10^3/uL (0-0.05); Absolute Lymphocytes 0.6 10^3/uL (1.2-3.4); Absolute Monocytes 0.4 10^3/uL (0.1-0.6); Absolute Neutrophils 10.4 10^3/uL (1.4-6.5); Hematocrit 32.5 % (37.0-47.0); Hemoglobin 9.9 g/dL (12.0-16.0); Mean Corp Hgb Conc. 30.5 g/dL (33.0-37.0); Mean Corpuscular Hgb 31.6 pg (27.0-31.0); Mean Corpuscular Volume 103.8 fL (81.0-99.0); Mean Platelet Volume 9.4 fL (7.4-10.4); Nucleated Red Blood Cells % 0 %; Platelet Count 269 10^3/uL (130-400); Red Blood Cell Count 3.13 10^6/uL (4.20-5.40); Red Cell Dist. Width 13.2 % (11.5-14.5); White Blood Cell Count 11.6 10^3/uL (4.8-10.8)
[2024-09-25 11:15] LABS: ALT (SGPT) 17 U/L (0-35); AST (SGOT) 24 U/L (14-36); Alkaline Phosphatase 60 U/L (38-126); Blood Urea Nitrogen 32 mg/dl (7-17); Calcium 8.9 mg/dl (8.4-10.2); Chloride 94 mmol/L (98-107); Estimated Creatinine Clearance 43 ml/min; Glucose 145 mg/dl (70-99); Magnesium 1.8 mg/dl (1.6-2.3); Potassium 4.1 mmol/L (3.5-5.1); Sodium 143 mmol/L (135-145); Total Bilirubin 0.6 mg/dl (0.2-1.3); Total Protein 5.5 g/dl (6.3-8.2); eGFR > 60.00
--- NOTE | 2024-09-25 11:20 | W.PN.HOSP.TC ---
Today's Communication/Plan
-
Comfort Care
Assessment / Plan
Assessment / Plan
Physical Exam
Gen-awake, alert, NAD
HEENT-NC, AT, anicteric, BiPAP mask on
Neck-supple
CV-reg, no M, +S1/S2
Lungs-Rales and rhonchi bilaterally. Some wheezing bilaterally.
Abd-soft, NT, ND
Ext-no edema
Musculoskeletal-no cyanosis, clubbing
Skin-warm and dry, bruising on both shins
Assessment/Plan
84-year-old female admitted with hypercapnic encephalopathy, and acute on chronic respiratory failure. Intubated in the ER and subsequently extubated in the ICU 48 hours later. Extensive history of pulmonary disease. Uses BiPAP at nighttime at home.
Acute hypercapnic encephalopathy -presentation with decreased level of consciousness and unresponsiveness. Etiology of hypercapnic encephalopathy likely due to COPD exacerbation. Unclear how compliant she was at home with nightly BiPAP.
Acute on chronic hypoxic/hypercapnic respiratory failure - intubated in the emergency room. S/p intubation 09/14, extubated 09/16. Patient transferred out of ICU on 09/21, readmitted to ICU on 09/22 after rapid response was called for altered mental
status, hypercapnic respiratory failure which responded to BiPAP therapy. Venous blood gas shows compensated hypercapnia with normal pH. Previously intubated twice in 2021, successfully extubated. Patient and her do not want long-term
invasive ventilation or tracheostomy.
Paroxysmal Supraventricular Tachycardia
Hyperkalemia
Acute COPD exacerbation -baseline Gold stage IV COPD.
Troponin elevation
Leukocytosis
Essential hypertension
Chronic anemia
History of right breast cancer -treated with lumpectomy, radiation 2014. Had recurrence with bleeding, status post hormonal therapy.
History of NHL -treated with radiation, chemo, completed 2007.
Radiation pneumonitis -chronic pleural thickening.
Chronic bronchiectasis
History of legionnaires pneumonia 1974 complicated by right pneumothorax requiring bilateral chest tube placement
Chronic low back pain/vertebral fracture/osteoporosis
Pulmonary cachexia -BMI 14.
Severe protein calorie malnutrition
Stage 1 Sacral Pressure Injury
Code Status: DNR/DNI
Patient rapidly decompensated today after BiPAP was taken off. Livestock Judging Coach Dr. Carlin spoke with patient and her , and they all agreed patient should be Comfort Care
Start Comfort Care
Anticipated Discharge: > 48 hours
Subjective/Interval History
-
Date of Service: September 25, 2024
Patient was seen and examined. She was more alert and responsive on BiPAP but later in the morning after BiPAP was taken off she quickly became lethargic.
Objective Data
-
Labs:
Laboratory Results
09/25/24 09/25/24
10:41 10:54
WBC 11.6 H
Hgb 9.9 L
Hct 32.5 L
Plt Count 269
HCO3 51.8 H*
Sodium 143
Potassium 4.1
Chloride 94 L
Carbon Dioxide Pending
BUN 32 H
Creatinine 0.5 L
Glucose 145 H
Calcium 8.9
Total Bilirubin 0.6
AST 24
ALT 17
Alkaline Phosphatase 60
Vital Signs:
Vital Signs
Temp Pulse Resp BP Pulse Ox
98.0 F 82 22 151/65 100
09/25/24 07:30 09/25/24 09:44 09/25/24 07:30 09/25/24 09:44 09/25/24 08:00
I&O
09/24/24 09/25/24 09/26/24
06:59 06:59 06:59
Intake Total 400 / 400 1020 / 1020
Balance 400 / 400 1020 / 1020
[2024-09-25 11:26] LABS: Carbon Dioxide 51 mmol/L (22-30)
[2024-09-25] MEDS: MORPHINE SULFATE 2 MG IV ×2 (11:44→20:40)
--- NOTE | 2024-09-25 11:53 | HOSPNOTE ---
Met with patient and at bedside to provide hospice intro. Patient and undecided at this time, would like time to talk things over and think on things. Would prefer to go home on hospice if possible but would need to get [address] as has his own medical issues and is not able to provide round the clock care, no family but does have a close friend as support. Patient appeared very SOB, discussed the use of morphine to relieve respiratory symptoms
which patient was agreeable to try. Notified patients nurse. Provided hospice folder with contact information and to reach out if they have any further questions. Hospice will continue to follow. On comfort measures at present.
--- NOTE | 2024-09-25 12:02 | W.PN.PUL3 ---
Today's Communication / Plan
-
- Transition to comfort care measures
- Add morphine as needed for air hunger
- Appropriate for hospice evaluation
- Pulmonary team will be available as needed.
Assessment
-
84-year-old F former tobacco smoker (quit 2002) with PMHx of advanced COPD with bronchiectasis/emphysema on chronic prednisone, COPD-cachexia, pulmonary fibrosis with Hx of XRT (2007 for NHL, 2017 for breast cancer), chronic cough, chronic hypoxic
respiratory failure on home O2 (2-4L/min), chronic hypercapnic respiratory failure on nocturnal BiPAP 15/5cmH2O, Hx of breast cancer s/p hormonal therapy + XRT, Hx of pneumonia, Hx of shingles, cataracts, HTN and Hx of pleurisy who p/w AMS and SOB.
Initially in the ER, she was afebrile to 99.2F, CA 122, RR 35, BP 133/84, and was saturating 89% on 2L/min. Blood gas showed acute on chronic hypercapnea with pH 7.23 with pCO2 108. K level was 5.6, Cr 1 (baseline: 0.4), glucose 209, troponin
0.052, proBNP 1070, and UA without signs of UTI. No evidence of an acute pneumonia on CXR. She was given 500cc NS 0.9%, and sedated with fentanyl and then admitted to ICU. While in ER, she developed ST elevation in infero-lateral leads.
Cardiology consulted, stat echo showed no WMA. 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 Solid Waste Technician consulted for additional management/recommendations.
Conditions present prior to admission:
History of severe lung disease including radiation fibrosis, severe bronchiectasis
Mixed obstructive/restrictive lung disease
FVC 0.8/31%, ratio 56
Patient declined more aggressive therapy (vest therapy/nebulizers/chronic antibiotics) did not tolerate azithromycin
History of VDRF 2021 x 2
Successfully extubated
COPD-Gold stage IV
Chronic hypoxemic, on 2.5 L
Chronic hypercapnia, on BiPAP 15/5
Tried Trilogy Vent in past (did not tolerate)
Chronic radiation injury-chronic bronchiectasis history of non-Hodgkin lymphoma
Thickened pleura
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
R breast carcinoma status post lumpectomy and XRT, breast mass removed 2014
Recurrence with bleeding, status post hormonal therapy
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
Hypertension
Chronic back pain, Vertebral fracture, osteoporosis
Limited DNR (no CPR), would except mechanical ventilation
#1. 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
-S/p intubation 09/14, extubated on 09/16
-Patient transferred out of ICU on 09/21, readmitted to ICU on 09/22 after rapid response was called for altered mental status, hypercapnic respiratory failure which responded to BiPAP therapy.
-09/25. Patient again noted to have increased work of breathing within minutes of taking off BiPAP after having been on BiPAP most of the night. Accessory muscle use noted no wheezing on exam. Patient appears to be clinically tiring. I met with
patient's at bedside we went over patient's overall clinical condition, course of so far as well as poor prognosis. CODE STATUS was changed to DNR/DNI on 09/23. In view of today's change in clinical status, decision was made to pursue
comfort focused care only. agreed for a trial of morphine on an as-needed basis to help with air hunger. Patient is lethargic during my evaluation with increased work of breathing.
-Updated primary team, RN as well as respiratory therapist
-Transition to comfort care only. Continue DuoNebs, add as needed morphine.
Other pulmonary co-morbidities:
#Pulmonary fibrosis with chronic right-sided pleural thickening most prominent on RUL with Hx of XRT (2007 for NHL, 2016 for breast cancer)
#Severe restrictive lung defect (spirometry from 09/2022 showed a post-BD FVC of 0.83L/30% predicted)
#Physical deconditioning (mainly wheelchair bound), Pulmonary cachexia, BMI 13.9
Total time spent on this consultation/encounter __45__ minutes which includes review of history, physical exam, medications, laboratory data, personal review of imaging, extensive review of outpatient records, discussion with care team and
respiratory therapy.
Data:
CXR 09/18/24- Interval removal of the endotracheal and enteric tubes. Small bilateral pleural effusions.
09/16/24- Endotracheal tube with tip 4.1 cm as above the john. Stable appearance of the chest compared to most recent radiograph of September 15, 2024 at 0452 hours.
CXR 06/10/24: No acute findings. Chronic right pleural thickening, extensive bronchiectasis. No change compared to 2022
Abdominal x-ray 11/09/21-Feeding tube overlies the left mid abdomen likely within the body of the stomach, nonobstructive bowel gas pattern
Pelvic and hip x-rays 11/08/21-acute nondisplaced intertrochanteric fracture of the left femur with 35� of medial angulation, lumbar scoliosis with compression fractures L2, L3 and L4, osteoporosis and right hip replacement
CT chest 05/2021� There is moderate pleural-parenchymal airspace disease with associated bronchiectasis in the right upper lobe with associated superior retraction of the right hilum. This has progressed in the interval since the prior study but more
likely is progression of chronic disease than superimposed acute inflammatory change. Similarly, there is pleural-parenchymal airspace disease at the medial right lung base which is more likely chronic than acute though it was not present on the
prior study.
CT chest 11/09/21-enlarged right ventricle, right atrium and diffuse cardiac enlargement, no aortic dissection or pulmonary embolism, collateral vessels and upper chest noted, worsening chronic lung changes with increased groundglass past patient's
both lung bases with associated pleural effusions, possible aspiration, endotracheal tube tip at john, new compression fractures of the thoracic spine, Doppler tube tip in the body of the stomach
CT head 11/08/21-no focal or acute intracranial abnormalities, mild diffuse cortical atrophy
PET 06/14/18:� pulmonary nodules, chronic R middle lobe atelectasis vs fibrosis
Echocardiogram 11/09/21-left ventricle small in size, hyperdynamic, EF 70%, stage I diastolic dysfunction, dilated right ventricle with akinesis of the mid free wall sparing the base and apex consistent with positive Rueda sign, moderate tricuspid
regurgitation, IVC is normal size and does not collapse of the patient is intubated and sedated with a PEEP of 5 cm, PA systolic estimated 58
Sputum culture-endotracheal 05/21/21- Ralstonia pickettii
Tracheal aspirate culture 10/03/19-Pseudomonas
Endotracheal Culture 10/02/19-Pseudomonas
All relevant imaging reviewed.
Subjective Data
-
Date of Service:
Date of Service: September 25, 2024
Chief Complaint: Pulmonary Follow Up
Subjective:
Patient noted to have increased work of breathing after taking off BiPAP this morning. Appears drowsy, drifting back to sleep
Review of Systems
Genitourinary: Other (Unable to obtain a full review of system because of patient's mental status and respiratory status)
Objective Data
Data Reviewed
Vital Signs / I&O / Oxygen:
Vital Signs
Temp Pulse Resp BP Pulse Ox
98.0 F 82 22 151/65 100
09/25/24 07:30 09/25/24 09:44 09/25/24 07:30 09/25/24 09:44 09/25/24 08:00
Intake and Output
09/24/24 09/25/24 09/26/24
06:59 06:59 06:59
Intake Total 400 / 400 1020 / 1020
Balance 400 / 400 1020 / 1020
SaO2 [A/C] 99
SaO2 100
Nasal Cannula flow liters per 2
minute
Physical Exam
General: Respiratory Distress and Other (on BIPAP)
HEENT: Normocephalic and Anicteric
Cardiovascular: S1-S2, Regular Rhythm and Peripheral Edema (+1 lower extremity pitting edema)
Respiratory: Clear, Accessory Resp Muscle Use (Work of breathing is increased with lab support service tech muscle use) and Other (Prolonged expiration, no obvious wheezing on exam. No rhonchi. No stridor.)
GI: Soft, Non Distended, Non Tender and Normal Bowel Sounds
Skin: Warm, Dry and Good Color
Labs/Micro/Reports
Lab Data
09/25/24 10:54
09/25/24 10:54
Laboratory Results
09/25/24
10:41
pH 7.43
pCO2 78 H*
pO2 64 L
HCO3 51.8 H*
O2 Delivery Level
--- NOTE | 2024-09-25 12:04 | CM ---
Hospice consult ordered. order entry administrator visited patient and . Currently on Comfort measures.
[2024-09-25 19:52] VITALS: BP 110/65
[2024-09-26] MEDS: MORPHINE SULFATE 2 MG IV ×7 (06:34→15:57)
[2024-09-26 07:20] VITALS: BP 142/71
[2024-09-26] MEDS: MIRALAX PO (07:34)
--- NOTE | 2024-09-26 08:12 | W.PN.HOSP.TC ---
Addendum entered and electronically signed by Manuel Mustafa MD 09/26/24 15:34:
Met with , he has medical issues and does not believe he can care for at home. He is requesting inpt Hospice as probability is that she will pass in the near future and thus this is an appropriate request
Also having a lot of break through pain and nursing requesting Morphine drip.
Continue comfort care with plan to transition to Hospice in AM
Original Note:
Today's Communication/Plan
-
await decision where plan to receive Hospice care
Assessment / Plan
Assessment / Plan
84-year-old female admitted with hypercapnic encephalopathy, and acute on chronic respiratory failure. Intubated in the ER and subsequently extubated in the ICU 48 hours later. Extensive history of pulmonary disease. Uses BiPAP at nighttime at home.
Acute hypercapnic encephalopathy -presentation with decreased level of consciousness and unresponsiveness. Etiology of hypercapnic encephalopathy likely due to COPD exacerbation. Unclear how compliant she was at home with nightly BiPAP.
Acute on chronic hypoxic/hypercapnic respiratory failure - intubated in the emergency room. S/p intubation 09/14, extubated 09/16. Patient transferred out of ICU on 09/21, readmitted to ICU on 09/22 after rapid response was called for altered mental
status, hypercapnic respiratory failure which responded to BiPAP therapy. Venous blood gas shows compensated hypercapnia with normal pH. Previously intubated twice in 2021, successfully extubated. Patient and her do not want long-term
invasive ventilation or tracheostomy.
Paroxysmal Supraventricular Tachycardia
Hyperkalemia resolved
Acute COPD exacerbation -baseline Gold stage IV COPD.
Troponin elevation
Leukocytosis
Essential hypertension
Chronic anemia
History of right breast cancer -treated with lumpectomy, radiation 2014. Had recurrence with bleeding, status post hormonal therapy.
History of NHL -treated with radiation, chemo, completed 2007.
Radiation pneumonitis -chronic pleural thickening.
Chronic bronchiectasis
History of legionnaires pneumonia 1974 complicated by right pneumothorax requiring bilateral chest tube placement
Chronic low back pain/vertebral fracture/osteoporosis
Pulmonary cachexia -BMI 14.
Severe protein calorie malnutrition
Stage 1 Sacral Pressure Injury
Code Status: DNR/DNI
Patient rapidly decompensated after BiPAP was taken off. Acid Concentrator Dr. Carlin spoke with patient and her , and they all agreed patient should be Comfort Care, consult was placed to Hospice, await decision as to wgere pt and family would
like Hospice. Potential update after arrives
Started Comfort Care
Anticipated Discharge: 24 - 48 hours
Subjective/Interval History
-
Date of Service: September 26, 2024
Very weak, denies pain, remains on prn MSO4
Objective Data
-
Vital Signs:
Vital Signs
Temp Pulse Resp BP Pulse Ox
97.2 F 105 18 142/71 93
09/26/24 07:20 09/26/24 07:20 09/26/24 07:20 09/26/24 07:20 09/26/24 07:20
I&O
09/25/24 09/26/24 09/27/24
06:59 06:59 06:59
Intake Total 1020 / 1020 700 / 700
Balance 1020 / 1020 700 / 700
Review of Systems
-
History Source: Patient and Coordinated Provider (reviewed with SERA [place])
Constitutional: Reports Weight Loss and Weakness; Denies Fever
Respiratory: Reports Trouble Breathing
Cardiac: Denies Chest Pain
Abdomen/GI: Reports Anorexia
Physical Exam
-
General: Well Developed and Cachectic (pulmonary)
HEENT: Normocephalic and Atraumatic
Respiratory: Rales (diffuse interstitial rales on shallow respirations), Accessory Resp Muscle Use and Other (improved air movement, taking deeper breaths, supraclavicular muscle atrophy); Negative Wheezes
Cardiac: Regular Rhythm and S1/S2
GI: Soft, Nontender and Nondistended
Musculoskeletal: No Clubbing, No Cyanosis and No Edema
Neuro: Awake, Alert and Oriented
Psych: Calm; Negative Confused
[2024-09-26] MEDS: MORPHINE 100 IV (15:52)
--- NOTE | 2024-09-26 17:23 | PTCARENOTE ---
RN called into room by patients family. No heart tones heard upon auscultation. MD made aware. Family at bedside.
--- NOTE | 2024-09-26 17:37 | W.PN.DEATH ---
Pronouncement of
-
Called to see patient to pronounce.
No spontaneous heart tones or respirations noted.
Patient not responsive to verbal stimuli.
Patient is pronounced .
Time of : 17:23
Date of : 09/26/24
Cause of : Acute hypoxic respiratory failure
Family Notified: Yes
== END 2024-09-26 17:23 | disposition expired | DRG 208 ==
LOC: 2 NORTH 14:57
PROVIDERS: Hospitalist; Nurse Practitioner; Nurse Practitioner Family; Nurse Practitioner Primary Care; ADMITTING PHYSICIAN Hospitalist; ATTENDING PHYSICIAN Internal Medicine; CONSULT PHYSICIAN Internal Medicine Cardiovascular Disease; CONSULT PHYSICIAN Internal Medicine Critical Care Medicine; EMERGENCY PHYSICIAN Emergency Medicine
PROC: 0BH18EZ Insertion of Endotracheal Airway into Trachea, Via Natural or Artificial Opening Endoscopic (ICD-10-PCS; 2024-09-14)
PROC: 5A1945Z Respiratory Ventilation, 24-96 Consecutive Hours (ICD-10-PCS; 2024-09-14)
PROC: 5A09357 Assistance with Respiratory Ventilation, Less than 24 Consecutive Hours, Continuous Positive Airway Pressure (ICD-10-PCS; 2024-09-20)
DX: J96.21 Acute and chronic respiratory failure with hypoxia (principal); E43 Unspecified severe protein-calorie malnutrition; J70.0 Acute pulmonary manifestations due to radiation; M80.08XA Age-related osteoporosis with current pathological fracture, vertebra(e), initial encounter for fracture; R64 Cachexia; Z68.1 Body mass index [BMI] 19.9 or less, adult; N17.9 Acute kidney failure, unspecified; J44.1 Chronic obstructive pulmonary disease with (acute) exacerbation; G93.49 Other encephalopathy; E87.4 Mixed disorder of acid-base balance; I47.10 Supraventricular tachycardia, unspecified; I5A Non-ischemic myocardial injury (non-traumatic); L89.151 Pressure ulcer of sacral region, stage 1; Z51.5 Encounter for palliative care; Z66 Do not resuscitate; J96.22 Acute and chronic respiratory failure with hypercapnia; J47.9 Bronchiectasis, uncomplicated; I10 Essential (primary) hypertension; E87.5 Hyperkalemia; Y84.2 Radiological procedure and radiotherapy as the cause of abnormal reaction of the patient, or of later complication, without mention of misadventure at the time of the procedure; G89.29 Other chronic pain; E86.0 Dehydration; R73.9 Hyperglycemia, unspecified; R79.89 Other specified abnormal findings of blood chemistry; D53.9 Nutritional anemia, unspecified; J84.10 Pulmonary fibrosis, unspecified; M19.90 Unspecified osteoarthritis, unspecified site; Z11.52 Encounter for screening for COVID-19; Z79.52 Long term (current) use of systemic steroids; Z79.899 Other long term (current) drug therapy; Z85.3 Personal history of malignant neoplasm of breast; Z85.72 Personal history of non-Hodgkin lymphomas; Z87.891 Personal history of nicotine dependence; Z92.21 Personal history of antineoplastic chemotherapy; Z92.3 Personal history of irradiation; Z99.3 Dependence on wheelchair
CPT/HCPCS: 36600; 71045; 71046; 74018; 80048; 80053; 81003; 81015; 82248; 82550; 82607; 82746; 82805; 82962; 83735; 83880; 84100; 84484; 85025; 85027; 85610; 85730; 87811; 92526; 92610; 93005; 93306; 94002; 94003; 94640; 94660; 96360; 97116; 97163; 97167; 97530; 97535; 99285